=== PATIENT | female | born 1965 | race Caucasian/White ===

== ENCOUNTER 2019-01-24 21:37 | Emergency (ER) | payer SELFPAY ==
--- OUTSIDE RECORDS SUMMARY | 2019-01-24 21:41 | XMS REPORT ---
:1965 [facility] Address [facility] [address] [place] [address] Care Team Providers Name Role Phone Unavailable Unavailable Unavailable Payers Payer Name Policy Type Policy Number Effective Date Expiration Date Problems This patient has no known problems. Allergies, Adverse Reactions, Alerts Allergy Name Allergy Status Severity Reaction(s) Onset Inactive Treating Comments Type Date Date Clinician No Known DA Active U 2011-05 Intolerances 1-16 00:00: 00 Medications This patient has no known medications.
--- OUTSIDE RECORDS SUMMARY | 2019-01-24 21:41 | XMS REPORT | Clinical Summary ---
:1965 Author Organization [facility] Address [address] [place] [address] Care Team Providers Name Role Phone Abhinav Trejo MD Primary Care Provider Allergies No Known Allergies Medications Medication Sig Dispensed Refills Start Date End Date Status atenolol-chlorthalidone 0 03/11/2016 Active (TENORETIC) 50-25 mg per tablet buPROPion XL (WELLBUTRIN TAKE ONE (1) 3 03/03/2017 Active XL) 150 MG 24 hr tablet TABLET(S) BY MOUTH ONCE A DAY. atorvastatin (LIPITOR) TAKE ONE (1) 1 07/07/2017 Active 40 MG tablet TABLET(S) BY MOUTH ONCE A DAY. sertraline (ZOLOFT) 100 TAKE TWO (2) 0 07/01/2017 Active MG tablet TABLET(S) BY MOUTH ONCE A DAY DIRECTED. Active Problems Problem Noted Date Injury of left Achilles tendon 07/24/2017 Back pain 04/17/2017 Lumbar radicular pain 04/17/2017 H/O laminectomy 04/17/2017 Hip pain, chronic, left 04/17/2017 Hip pain, chronic, right 04/17/2017 Trochanteric bursitis of both hips 04/17/2017 Myofascial pain 04/17/2017 Lumbar stenosis with neurogenic claudication 04/25/2016 Social History Tobacco Use Types Packs/Day Years Used Date Current Every Day Smoker 0.5 20 Smokeless Tobacco: Never Used Alcohol Use Drinks/Week oz/Week Comments Yes RARELY Sex Assigned at Date Recorded Not on file Job Start Date Occupation Industry Not on file Not on file Not on file Travel History Travel Start Travel End No recent travel history available. Last Filed Vital Signs Not on file Plan of Treatment Health Maintenance Due Date Last Done Comments CERVICAL CANCER SCREENING 1986 BREAST CANCER SCREENING 2015 COLONOSCOPY SCREENING 2015 SHINGLES VACCINES (#1) 2015 INFLUENZA VACCINE 12/16/2018 Implants Implanted Type Area [employer] Technician Device Shelf Model / Identifier Expiration Serial / Date Lot Matrix [facility] Floseal 10ml W/ Humn F2 - [id number] Surgical N/A: N/A ZAMORA 08/15/2017 [id number] / Implanted: Qty: 1 on 04/25/2016 by Sigifredo Sapp MD at [facility] Implants ; BIOSCIENCE / Expanders; [id number] Extenders; Surgical Wires Matrix [facility] Floseal 10ml W/ Humn F2 - [id number] Surgical N/A: N/A ZAMORA 05/17/2017 [id number] / Implanted: Qty: 1 on 04/25/2016 by Sigifredo Sapp MD at [facility] Implants ; BIOSCIENCE / Expanders; [id number] Extenders; Surgical Wires Results Not on fileafter 01/23/2018 Insurance Payer Benefit Plan / Subscriber ID Effective Dates Phone Address Type Group AETNA AETNA HMO,POS,EPO, xxxxxxxxxx 2011-Present HMO MC/EC CVCP CVCP AETNA xxxxxxxxxx 2011-Present [address] [facility] [facility] [address] [place] [address] Advance Directives For more information, please contact: [phone] Type Date Recorded Patient Hospitalist Program Director Explanation Advance Directives, Living Will and Medical Power of Tests Superintendent Advance Directives, Living Will and Medical Power of Tests Superintendent
[2019-01-24] MEDS ORDERED: HYDROCODONE/APAP 10/325 TAB ONE (22:05)
[2019-01-24] MEDS ORDERED: KETOROLAC 30 MG/ML INJ ONE (22:05)
--- NOTE | 2019-01-24 23:04 | EDPHYS ---
Physician Documentation [facility] Name: Saniya Solorzano Age: 53 yrs Sex: Female : 1965 Arrival Date: 01/24/2019 Time: 21:41 Bed 20 Private MD: ED Physician Tay Baker HPI: 01/24 21:55 This 53 yrs old Female presents to ER via Unassigned with complaints of Fall pm1 Injury. 21:55 Details of fall: The patient fell from an upright position, while walking. Onset: The pm1 symptoms/episode began/occurred today. Associated injuries: The patient sustained left hip. Patient with a history of chronic back pain. The patient has not recently seen a physician. Patient was walking her dogs and walked across a wet patch. Slipped and landed on her left hip area. No head injury, headache, neck pain, LOC. 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 - Social history:: Smoking status: Patient uses tobacco products, smokes one pack cigarettes per day. - Ebola Screening: : No symptoms or risks identified at this time. ROS: 21:55 Constitutional: Negative for fever, chills, and weight loss, Eyes: Negative for injury, pm1 pain, redness, and discharge, Neck: Negative for injury, pain, and swelling, Cardiovascular: Negative for chest pain, palpitations, and edema, Respiratory: Negative for shortness of breath, cough, wheezing, and pleuritic chest pain, Abdomen/GI: Negative for abdominal pain, nausea, vomiting, diarrhea, and constipation. 21:55 Skin: Negative for injury, rash, and discoloration, Neuro: Negative for headache, weakness, numbness, tingling, and seizure. 21:55 Back: Positive for chronic low back pain, Negative for radiated pain. 21:55 MS/extremity: Positive for pain, of the left hip, Negative for decreased range of motion, deformity. Exam: 21:55 Constitutional: This is a well developed, well nourished patient who is awake, alert, pm1 and in no acute distress. Head/Face: Normocephalic, atraumatic. Neck: Trachea midline, no thyromegaly or masses palpated, and no cervical lymphadenopathy. Supple, full range of motion without nuchal rigidity, or vertebral point tenderness. No Meningismus. Chest/axilla: Normal chest wall appearance and motion. Nontender with no deformity. No lesions are appreciated. Cardiovascular: Regular rate and rhythm with a normal S1 and S2. No gallops, murmurs, or rubs. Normal PMI, no JVD. No pulse deficits. Respiratory: Lungs have equal breath sounds bilaterally, clear to auscultation and percussion. No rales, rhonchi or wheezes noted. No increased work of breathing, no retractions or nasal flaring. Abdomen/GI: Soft, non-tender, with normal bowel sounds. No distension or tympany. No guarding or rebound. No evidence of tenderness throughout. 21:55 Back: pain, of the posterior iliac crest bilaterally, vertebral tenderness, is not appreciated. 21:55 Musculoskeletal/extremity: Extremities: grossly normal except: noted in the left hip: tenderness. 21:55 Skin: Appearance: normal except for affected area, injury, abrasion(s), very small abrasion noted, of the left knee. 21:55 Neuro: Orientation: is normal, Motor: is normal, moves all fours. Vital Signs: 22:08 BP 140 / 81; Pulse 72; Resp 16 S; Temp 98.2(O); Pulse Ox 95% on R/A; Weight 77.56 kg bb (R); Height 5 ft. 6 in. (167.64 cm) (R); Pain 7/10; 22:58 BP 115 / 74; Pulse 66; Resp 18; Pulse Ox 97% on R/A; ao 22:08 Body Mass Index 27.60 (77.56 kg, 167.64 cm) bb MDM: 21:53 Patient medically screened. pm1 22:00 Data reviewed: vital signs. pm1 23:01 Data interpreted: Pulse oximetry: on room air is 97 %. Interpretation: normal. pm1 Counseling: I had a detailed discussion with the patient and/or guardian regarding: the historical points, exam findings, and any diagnostic results supporting the discharge/admit diagnosis, radiology results, the need for outpatient follow up, to return to the emergency department if symptoms worsen or persist or if there are any questions or concerns that arise at home. 01/24 21:54 Order name: Hip Left 2 View XRAY pm1 01/24 21:54 Order name: Pelvis XRAY pm1 Administered Medications: 22:08 Drug: Delta 10 mg-325 mg 1 tabs Route: PO; ea 23:23 Follow up: Response: No adverse reaction ao 23:23 Follow up: Response: RASS: Alert and Calm (0) ao 22:09 Drug: TORadol 60 mg Route: IM; Site: left gluteus; ea 23:23 Follow up: Response: No adverse reaction ao Disposition: 01/25 06:26 Co-signature as Attending Physician, Tay Baker MD I agree with the assessment and tw4 plan of care. Disposition: 01/24/19 23:03 Discharged to Home. Impression: Contusion of left hip, Fall on same level, unspecified. - Condition is Stable. - Discharge Instructions: Contusion, Fall Prevention in the Home, Hip Pain. - Prescriptions for Tylenol- Codeine #3 300-30 mg Oral Tablet - take 2 tablets by ORAL route every 6 hours As needed; 20 tablet. - Medication Reconciliation Form, Thank You Letter, Antibiotic Education, Prescription Opioid Use form. - Follow up: Emergency Department; When: As needed; Reason: Worsening of condition. Follow up: Private Physician; When: 2 - 3 days; Reason: Recheck today's complaints, Continuance of care, Re-evaluation by your physician. - Problem is new. - Symptoms have improved. Signatures: Dispatcher [employer] EDMS Tamar Garsia RN RN bb Ortiz, Alex RN Noel Velasquez, LAST PUTTER AWAY LAST PUTTER AWAY pm1 Nithya Parham RN RN ea Wadley, Terrence, MD MD tw4 Corrections: (The following items were deleted from the chart) 01/24 23:04 23:03 01/24/2019 23:03 Discharged to Home. Impression: Contusion of left hip. Condition pm1 is Stable. Forms are Medication Reconciliation Form, Thank You Letter, Antibiotic Education, Prescription Opioid Use. Follow up: Emergency Department; When: As needed; Reason: Worsening of condition. Follow up: Private Physician; When: 2 - 3 days; Reason: Recheck today's complaints, Continuance of care, Re-evaluation by your physician. Problem is new. Symptoms have improved. pm1 23:26 23:04 01/24/2019 23:03 Discharged to Home. Impression: Contusion of left hip; Fall on ao same level, unspecified. Condition is Stable. Forms are Medication Reconciliation Form, Thank You Letter, Antibiotic Education, Prescription Opioid Use. Follow up: Emergency Department; When: As needed; Reason: Worsening of condition. Follow up: Private Physician; When: 2 - 3 days; Reason: Recheck today's complaints, Continuance of care, Re-evaluation by your physician. Problem is new. Symptoms have improved. pm1
--- NOTE | 2019-01-24 23:04 | ER ---
Nurse's Notes [facility] Name: Saniya Solorzano Age: 53 yrs Sex: Female : 1965 Arrival Date: 01/24/2019 Time: 21:41 Bed 20 Private MD: Diagnosis: Contusion of left hip;Fall on same level, unspecified Presentation: 01/24 22:06 Presenting complaint: Patient states: she was walking down the handicap ramp at [facility] in [place] there was water at the bottom and she slipped injuring her left hip denies hitting her head and denies LOC. Transition of care: patient was not received from another setting of care. Onset of symptoms was January 24, 2019. Risk Assessment: Do you want to hurt yourself or someone else? Patient reports no desire to harm self or others. Initial Sepsis Screen: Does the patient meet any 2 criteria? No. Patient's initial sepsis screen is negative. Does the patient have a suspected source of infection? No. Patient's initial sepsis screen is negative. Care prior to arrival: None. 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 - Social history:: Smoking status: Patient uses tobacco products, smokes one pack cigarettes per day. - Ebola Screening: : No symptoms or risks identified at this time. Screenin:13 Abuse screen: Denies threats or abuse. Nutritional screening: No deficits noted. ea Tuberculosis screening: No symptoms or risk factors identified. Fall Risk Fall in past 12 months (25 points). Assessment: 22:12 General: Appears uncomfortable, Behavior is calm, cooperative, appropriate for age. ea Pain: Complains of pain in left leg and left hip. Neuro: Level of Consciousness is awake, alert, obeys commands, Oriented to person, place, time, situation. Cardiovascular: Patient's skin is warm and dry. Respiratory: Airway is patent Respiratory effort is even, unlabored, Respiratory pattern is regular, symmetrical. Derm: Skin is pink, warm \T\ dry. Musculoskeletal: Circulation, motion, and sensation intact. 22:58 Reassessment: Patient appears in no apparent distress at this time. Patient and/or ao family updated on plan of care and expected duration. Pain level reassessed. Patient is alert, oriented x 3, equal unlabored respirations, skin warm/dry/pink. Waiting on dispo orders. 23:23 Reassessment: Dc instructions given to patient. Patient agree with the POC and to ao follow up with PCP. Vital Signs: 22:08 BP 140 / 81; Pulse 72; Resp 16 S; Temp 98.2(O); Pulse Ox 95% on R/A; Weight 77.56 kg bb (R); Height 5 ft. 6 in. (167.64 cm) (R); Pain 7/10; 22:58 BP 115 / 74; Pulse 66; Resp 18; Pulse Ox 97% on R/A; ao 22:08 Body Mass Index 27.60 (77.56 kg, 167.64 cm) ED Course: 21:41 Patient arrived in ED. cf2 21:47 Noel Duggan NP is PHCP. pm1 21:47 Tay Baker MD is Attending Physician. pm1 22:07 Triage completed. bb 22:08 Arm band placed on Patient placed in an exam room, on a stretcher, on pulse oximetry. bb Family accompanied patient. 22:12 Patient has correct armband on for positive identification. Bed in low position. Call ea light in reach. Side rails up X2. 22:13 Shant Reyes, RN is Primary Nurse. ao 22:33 Hip Left 2 View XRAY In Process Unspecified. EDMS 22:34 Pelvis XRAY In Process Unspecified. EDMS 23:24 No provider procedures requiring assistance completed. Patient did not have IV access ao during this emergency room visit. Administered Medications: 22:08 Drug: Ojibwa 10 mg-325 mg 1 tabs Route: PO; ea 23:23 Follow up: Response: No adverse reaction ao 23:23 Follow up: Response: RASS: Alert and Calm (0) ao 22:09 Drug: TORadol 60 mg Route: IM; Site: left gluteus; ea 23:23 Follow up: Response: No adverse reaction ao Outcome: 23:03 Discharge ordered by MD. pm1 23:24 Discharged to home ambulatory. ao 23:24 Condition: stable 23:24 Discharge instructions given to patient, Instructed on discharge instructions, follow up and referral plans. Demonstrated understanding of instructions, follow-up care, medications, Prescriptions given X 1. 23:26 Patient left the ED. ao Signatures: Dispatcher [employer] EDTamar Shin RN RN bb Ortiz, Alex, RN RN ao Marinas, Patrick, COMMUNICATION TECHNICIAN COMMUNICATION TECHNICIAN pm1 Nithya Parham RN RN ea Frazier, Celesta cf2
[2019-01-25 00:49] VITALS: TEMP 98.2
[2019-01-25 00:51] VITALS: BP 115/74; O2SAT 97
--- NOTE | 2019-01-25 07:44 | RAD REPORT ---
EXAM DESCRIPTION: RAD - Hip Left 2 View - 01/24/2019 10:33 pm CLINICAL HISTORY: Slip and fall, left hip pain COMPARISON: None. FINDINGS: AP and frogleg views of the left hip were obtained. There is no fracture or dislocation. N o acute or destructive bony process seen. Minimal degenerative change along the superior acetabular rim. Minimal SI joint degenerative change seen. No soft tissue abnormality. IMPRESSION: Negative left hip examination for acute or significant findings.
--- NOTE | 2019-01-25 07:44 | RAD REPORT ---
EXAM DESCRIPTION: RAD - Pelvis - 01/24/2019 10:33 pm CLINICAL HISTORY: Slip and fall, pelvis and left hip injury, pelvic pain COMPARISON: None. TECHNIQUE: AP imaging of the pelvis was obtained. FINDINGS: No fracture of the bony pelvis. No fracture, dislocation or other acute hip joint finding. No significant SI joint findings. Patient has very advanced for age degenerative change spanning L2-S1. Disc space narrowing and large marginal spurs are present. Lumbar spine is only partially imaged on this study. No soft tissue abnormality. IMPRESSION: Negative pelvis for acute or significant findings. Advanced lumbar spine degenerative change only partially imaged.
== END 2019-01-24 23:26 | disposition home or self-care (01) ==
LOC: ER 21:37
DX: S70.02XA Contusion of left hip, initial encounter (principal); W01.0XXA Fall on same level from slipping, tripping and stumbling without subsequent striking against object, initial encounter; Y93.K1 Activity, walking an animal; Y92.89 Other specified places as the place of occurrence of the external cause; I10 Essential (primary) hypertension; E78.5 Hyperlipidemia, unspecified; F17.210 Nicotine dependence, cigarettes, uncomplicated
CPT/HCPCS: 72170; 96372; 99284

== ENCOUNTER 2019-06-19 17:46 | Emergency (ER) | payer OTHER, SELFPAY ==
--- OUTSIDE RECORDS SUMMARY | 2019-06-19 17:48 | XMS REPORT ---
:1965 [facility] Address [address] [place] [address] Care Team Providers Name Role Phone Unavailable Unavailable Unavailable Payers Payer Name Policy Type Policy Number Effective Date Expiration Date Problems This patient has no known problems. Allergies, Adverse Reactions, Alerts Allergy Name Allergy Status Severity Reaction(s) Onset Inactive Treating Comments Type Date Date Clinician No Known DA Active U 2011-05 Intolerances 1-16 00:00: 00 Medications This patient has no known medications. Results Test Description Test Time Test Comments Text Results Atomic Results Result Comments - MRI JNT W/O CONT LT 2019-06-06 09:22:00 Patient Name: JASON LONG Unit No: [id number] EXAMS: CPT CODE: [id number] MRI [facility] W/[place] [address] MRI OF THE LEFT KNEE DIAGNOSIS: 1. Irregular horizontal tear of the body and posterior. 2. 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 There is partial thickness cartilage loss in both locations with marginal osteophyte formation involving the femoral condyles. Subchondral cyst formation is seen in the patellofemoral joint. There is a small joint effusion without evidence for a loose body COMMENT: COMPARISON: No prior exams available. Scans were performed in the sagittal, axial and coronal planes utilizing T1, spin density with fat saturation and T2-weighted pulse sequences. Bony and hyaline cartilage abnormalities are present as noted. The body and posterior horn is torn. The anterior horn the medial meniscus and the lateral meniscus are within normal limits in signal and configuration. No abnormality of the anterior or posterior cruciate or medial or lateral collateral ligaments. The quadriceps and patellar tendons appear normal. at 0922 Reported and signed by: Jono Mccormick MD CC: Ruddy Escalante MD Technologist: Sunni Gates Transcribed D/ (921) [facility] NAME: JASON LONG [address] [facility] PHYS: FLORIN.Patricia - Ruddy Escalante : 1965 AGE: 54 SEX: F [place] [id number] LOC: Y.MRI PHONE #: [phone] EXAM DATE: 06/04/2019 STATUS: DEP CLI FAX #: [phone] RAD #: [id number] D/C DT PAGE 1 Signed Report Patient Name: JASON LONG Unit No: [id number] EXAMS: CPT CODE: [id number] MRI LW JNT W/[place] [address] <Continued> Orig Print D/T: S: 06/06/2019 (924) [facility] NAME: JASON LONG [address] [facility] [address] [facility] PHYS: FLORIN.Patricia - Ruddy Escalante : 1965 AGE: 54 SEX: F [place] [id number] LOC: Y.MRI PHONE #: [phone] EXAM DATE: 06/04/2019 STATUS: DEP CLI FAX #: [phone] RAD #: [id number] D/C DT PAGE 2 Signed Report
[2019-06-19] MEDS ORDERED: ONDANSETRON 4 MG/2 ML VIAL ONE (18:19)
[2019-06-19] MEDS ORDERED: MORPHINE 4 MG/ML SYR ONE (18:19)
[2019-06-19 18:36] LABS: Absolute Lymphocytes (CBC) 3.7 K/uL (0.7-4.9); Basophils % 0.8 % (0-1.3); Hematocrit 44.7 % (36.0-45.0); Lymphocytes % 31.6 % (15.3-44.8); MPV 7.7 fL (7.6-11.3); Protime INR 0.93; RBC Red Blood Cell Count 4.83 M/uL (3.86-4.86)
[2019-06-19 18:54] LABS: ALT/SGPT 24 U/L (12-78); AST/SGOT 18 U/L (15-37); Albumin 3.9 g/dL (3.4-5.0); Alkaline Phosphatase 137 U/L (45-117); BUN Blood Urea Nitrogen 15 mg/dL (7-18); Bicarbonate 29 mmol/L (21-32); Bilirubin Direct < 0.1 mg/dL (0-0.2); Bilirubin Total 0.2 mg/dL (0.2-1.0); Glucose Level 116 mg/dL (74-106); Magnesium 1.9 mg/dL (1.8-2.4); NT PRO-BNP 37 pg/mL (<125); Potassium 3.1 mmol/L (3.5-5.1); Protein, Total 7.9 g/dL (6.4-8.2); Sodium Level 138 mmol/L (136-145); Troponin (Emerg Dept Use Only) 0.04 ng/mL (0.0-0.045)
--- NOTE | 2019-06-19 19:34 | RAD REPORT ---
EXAM DESCRIPTION: RAD - Chest Single View - 06/19/2019 7:27 pm CLINICAL HISTORY: CHEST PAIN COMPARISON: No comparisons TECHNIQUE: AP portable chest image was obtained 06/19/2019 7:27 pm . FINDINGS: Lung volumes are low. Interstitial markings are prominent, accentuated by shallow inspirat ion. True or significant lung parenchymal process doubtful. Heart and vasculature are normal. No pita urable pleural effusion and no pneumothorax. No acute bony abnormality seen. No acute aortic findings suspected. IMPRESSION: No acute cardiopulmonary process.
--- NOTE | 2019-06-19 19:34 | RAD REPORT ---
EXAM DESCRIPTION: CT - Chest For Pe Angio - 06/19/2019 7:15 pm CLINICAL HISTORY: chest pain, shortness of breath COMPARISON: Chest Single View dated 06/19/2019 TECHNIQUE: Dynamically enhanced 3 mm thick images of the chest were obtained during administration o f approximately 150mL Isovue 370 IV contrast. Coronal and oblique MIP reconstruction images were gene rated and reviewed. Exam utilizes a protocol to evaluate the pulmonary arterial tree. All CT scans are performed using dose optimization technique as appropriate and may include automated exposure control or mA/KV adjustment according to patient size. FINDINGS: No pulmonary emboli are identified. The aorta as imaged shows no acute or suspicious finding. No pericardial thickening or effusion. No large mass or consolidation. There are several 6-8 mm rounded noncalcified nodules in the left pos terior gutter. There is minimal stranding as well as atelectasis. No other nodularity in the chest. N o pleural effusion or pleural thickening. No mediastinal or hilar suspicious masses. No chest wall masses or abnormal axillary lymphadenopathy. IMPRESSION: No pulmonary emboli identified. Several small noncalcified nodule 6-8 mm in size are present in the posterior gutter on the left. The se could be small areas of infiltrate rather than lung nodules given the clustered nature. No other significant or suspicious findings noted. Recommendation for multiple nodules of this size would be to undergo repeat CT chest study in 6-12 mo nths.
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
[2019-06-19] MEDS ORDERED: KETOROLAC 30 MG/ML INJ ONE (20:08)
[2019-06-19] MEDS ORDERED: DIAZEPAM 10 MG/2 ML INJ SYRINGE ONE (20:29)
[2019-06-19 21:05] VITALS: TEMP 97.9
[2019-06-19 21:09] VITALS: BP 109/75; O2SAT 95
== END 2019-06-19 20:49 | disposition home or self-care (01) ==
LOC: ER 17:46
DX: R07.9 Chest pain, unspecified (principal); I10 Essential (primary) hypertension; E78.5 Hyperlipidemia, unspecified; F17.210 Nicotine dependence, cigarettes, uncomplicated
CPT/HCPCS: 85025; 80048; 36415; 83735; 85610; 80076; 84484; 83880; 71275; 71045; 96375; 96374; 99285; Q9967; J3360; J2405

== ENCOUNTER 2024-05-24 15:34 | Inpatient (IN) | payer OTHER ==
--- OUTSIDE RECORDS SUMMARY | 2024-05-24 15:56 | XMS REPORT | Continuity of Care Document ---
Author Name Unknown Address [address] [facility] [address] [place] [address] [facility] Address [address] [facility] [place] [address] Care Team Providers Care Overlay Operator Name Role Phone MIKEYVEENALUCÍA W Primary Care Physician Unavailab Chuy Cortez Attending Clinician Unava ilJESICA Mccabe Attending Clinician Unavailable Lars Humphries MD Attending Clinician + [phone] Uriah FRANCO, Jamar Castrejon Attending Clinic shira Jen FRANCO, Jakob Palmer Attending Clinician + Butch FRANCO, Opal Attending Clinician [phone] Bahman Rai Attending Clinician [phone] Surinder Torre MD Attending Clinician [phone] Quan FRANCO, Prince Chun Attending Clinician + [phone] Juan Luis HOLDER, Courtney Flowers Attending Clinician [phone] Angel SCHMIDT, Janett Attending Clinician Unavailable Liliana Gunderosn APRN Attending Clinician + Deion FRANCO, David Pedroza Attending Clinician [phone] Sami HEREDIA, Martita Attending Clinician Unavaila shruthi Montana DO, Sera Norman Attending Clinici an CHESTER RODGERS Attending Clinician Unavailable Aniceto JOSHUA, Saskia Attending Clinician [phone] Jhoana Peguero LVN Attending Clinician Unavailable Leah FRANCO, Milan Huggins Attending Clinician [phone] Lay Elinor Attending Clinician Unavailable DEACON QUIROZ Attending Clinician Unavailabl TI Parisi Attending Clinician Unavailab cristian Fried MD, Johanny Gregory Attending Clinician [phone] Arsen WATER RESOURCE SPECIALIST, Courtney Attending Clinician [phone] Attending Clinician Unavailable FransiscoLon WATER RESOURCE SPECIALIST, Idania Attending Clinician [phone] Dannielle Arroyo MA Attending Clinician Unavailab NHUNG Hercules Attending Clinician Unavailable Venu FRANCO, Shekhar Fox Attending Clinician +[phone] Nancy Potter MD Attending Clinician [phone] Brigido FRANCO, Thierry Attending Clinician [phone] Leah FRANCO, Abdirahman Monsalve Attending Clinician [phone] Luis FRANCO, Skip Mendoza Attending Clinician [phone] Rolanda Palma MD Attending Clinician [phone] LAB47 Attending Clinician Unavailable Chago Hall LVN Attending Clinician Unavailabl kristopher Balbuena MA, Ericka Attending Clinician Unavailab AHMET Anders Attending Clinician Unavailable Kamar Attending Clinician Unavail able JAMESON CASTILLO Attending Clinician Unavailable NYDIA BREWSTER Attending Clinician Unavailab Johanny Tony Attending Clinician Unavailab NAMRATA Nunes Attending Clinician Unavailable TISH LOPEZ Attending Clinician Unavailabl LOVE Harris Attending Clinician Unavailable JULIANNA EVANS Attending Clinician Unava ilable OLIVERIO DHILLON Attending Clinician Unavailable PATRICK YANG Attending Clinician Un available TESTING, LJ MEHDI JUAREZ Attending Clinician U TERRANCE Garcia Attending Clinician Unavailable RADIOLOGY Attending Clinician Unavailable Aristides Attending Clinician Unavail able Emil Guzman Attending Clinician [phone] Emil Guzman Attending Clinician Unavailable Julianna Evans MD Attending Clinician + [phone] Lyndsay Jimenes MD Attending Clinician [phone] Damian Mittal Attending Clinician [phone] DAMIAN OROPEZA Attending Clinician Unavailable Doctor Unassigned, Atco Attending Clinician U Dangelo Cosby DO Attending Clinician [phone] Ruddy Escalante Attending Clinician UnavailChuy Bey Admitting Clinician Unava ilable JAMAR SOTO Admitting Clinician Unavailable DAVID ALBARRAN Admitting Clinician Unavailable NANCY POTTER Admitting Clinician Unavailable Kamar Admitting Clinician Unavail able Johanny العراقي Admitting Clinician Unavailab le Aristides Admitting Clinician Unavail able Emil Guzman Admitting Clinician Unavailable Payers Payer Name Policy Type Policy Number Effective Date Expirati on Date Source CIGNA II [id number] 2018 00:00:00 [facility] 2 [id number] 2020 00:00:00 [facility] (PPO) [id number] 2003 00:00:00 Problems Condition Name Condition Details Condition Category Status Onset Date Resolution Date Last Treatment Date Treating Clinician Comments Source Acute respirator y failure with hypoxia Acute respirator y failure with hypoxia Disease Active 2023-05 00:00: 00 Emil iniguez Degenerati on of interverte bral disc of lumbar region, unspecifie d whether pain present Degenerati on of interverte bral disc of lumbar region, unspecifie d whether pain present Disease Active 2023-05 00:00: [address] Lumbar radiculopa thy Lumbar radiculopa thy Disease Active 2023-05 1-15 00:00: 00 Emil iniguez Hallux valgus of left foot Hallux valgus of left foot Disease Active 2023-05 0-03 00:00: 00 Emil iniguez Osteopenia of multiple sites Osteopenia of multiple sites Disease Active 8- 00:00: 00 Antonia Seybold - Externa l Bunion of great toe of left foot Bunion of great toe of left foot Disease Active 830 00:00: 00 Antonia Seybold - Externa l Cervical radiculopa thy Cervical Radiculopa thy Problem Active 8-23 00:00: 00 [facility] Cervical radiculopa thy Cervical radiculopa thy Disease Active 8-07 00:00: 00 Emil iniguez Osteopenia Osteopenia Disease Active 4- 00:00: 00 Emil iniguez Alkaline phosphatas e elevation Alkaline phosphatas e elevation Disease Active 4- 00:00: 00 Emil iniguez Vitamin D deficiency Vitamin D deficiency Disease Active 4 00:00: 00 Emil iniguez Insomnia Insomnia Problem Active 2022-05 2-20 00:00: 00 [facility] Acquired left hallux valgus Acquired Left Hallux Valgus Problem Active 9 00:00: 00 [facility] Bone cyst of foot Bone Cyst of Foot Problem Active 9 00:00: 00 [facility] Sesamoidit is Sesamoidit is Problem Active 8- 00:00: 00 [facility] Bunion Bunion Problem Active 8-14 00:00: 00 [facility] Pain in left foot Pain in Left Foot Problem Active 8- 00:00: 00 [facility] Pain of right knee joint Pain of Right Knee Joint Problem Active 8 00:00: 00 [facility] Osteoarthr itis of right knee Osteoarthr itis of right knee Disease Active 8-25 00:00: 00 Antonia lopez Prediabete s Prediabete s Disease Active 4-07 00:00: 00 Antonia lopez Tear of medial meniscus of knee Tear of Medial Meniscus of Knee Problem Active 2020-05 2 00:00: 00 [facility] Chondromal acia Chondromal acia Problem Active 2020-05 00:00: 00 [facility] Knee joint effusion Knee Joint Effusion Problem Active 2020-05 00:00: 00 [facility] Knee pain Knee Pain Problem Active 2020-05 00:00: 00 [facility] Gastroesop hageal reflux disease Gastroesop hageal reflux disease Disease Active 11-27 00:00: 00 Antonia lopez Anxiety - Controlled Anxiety - Controlled Disease Active 11-27 00:00: 00 Antonia lopez Hyperlipid emia Hyperlipid emia Disease Active 11-27 00:00: 00 Antonia lopez DM type 2 with diabetic mixed hyperlipid emia (multi HCC) DM type 2 with diabetic mixed hyperlipid emia (multi HCC) Disease Active 11-27 00:00: 00 Antonia lopez Essential hypertensi on Essential hypertensi on Disease Active 5-11 00:00: 00 Antonia lopez Tear of meniscus of knee Tear of Meniscus of Knee Problem Active 06-01 00:00: 00 [facility] Pain in left knee Pain in Left Knee Problem Active 06-01 00:00: 00 [facility] Lumbar radiculopa thy Lumbar Radiculopa thy Problem Active 2017-05 00:00: 00 [facility] Pain in right lower limb Pain in Right Lower Limb Problem Active 2017-05 00:00: 00 [facility] Tarsal tunnel syndrome Tarsal Tunnel Syndrome Problem Active 2017-05 00:00: 00 [facility] Plantar fasciitis Plantar Fasciitis Problem Active 2017-05 00:00: 00 [facility] Injury of left Achilles tendon Injury of left Achilles tendon Disease Active 07-24 [facility]: [address] [facility] of left Achilles tendon Injury of left Achilles tendon Disease Active 07-24 00:00: [address] Lumbar radicular pain Lumbar radicular pain Disease Active 2016-05 00:00: [address] [facility] Back pain Back pain Disease Active 2016-05 00:00: [address] Lumbar radicular pain Lumbar radicular pain Disease Active 2016-05 00:00: [address] H/O laminectom y H/O laminectom y Disease Active 2016-05 00:00: [address] Hip pain, chronic, left Hip pain, chronic, left Disease Active 2016-05 00:00: [address] Trochanter ic bursitis of both hips Trochanter ic bursitis of both hips Disease Active 2016-05 00:00: [address] Myofascial pain Myofascial pain Disease Active 2016-05 00:00: [address] Lumbar stenosis with neurogenic claudicati on Lumbar stenosis with neurogenic claudicati on Disease Active 2015-05 00:00: [address] Procedure aiding diagnosis Procedure Aiding Diagnosis Problem Active 12-25 00:00: 00 [facility] No known active problems No known active problems Disease [facility] Tobacco use Tobacco use Disease Active Antonia Seybold - Externa l Allergies, Adverse Reactions, Alerts Allergy Name Allergy Type Status Severity Reaction(s) Onset Date Inactive Date Treating Clinician Comments Source Tramadol Propensi ty to adverse reaction s to drug Active Other (See Comments), GI Intolerance 08-25 00:00: 00 N/V,heada charla Emil [facility]leyi st Tramadol Propensi ty to adverse reaction s Active Nausea Only 2022-05 00:00: 00 Antonia Olearyold - Externa l No Known Allergie s DA Active U 918 00:00: 00 [facility] No Known Drug Allergie s DA Active U 2020-05 2 00:00: 00 [facility] No Known Drug Allergie s DA Active U 2020-05 1 00:00: 00 [facility] No Known Allergie s DA Active U 3 00:00: 00 [facility] No Known Allergie s DA Active U 08-01 00:00: 00 [facility] No Known Intolera nces DA Active U 2011-05 00:00: 00 [facility] No Known Intolera nces DA Active U 2011-05 00:00: 00 [facility] NO KNOWN ALLERGIE S Drug Class Active [facility] Family History Family Member Diagnosis Comments Start Date Stop Date Sourc e Natural father Cancer [place] [employer] Natural father Heart attack [facility] [place] [employer] Natural father Hypertension [facility] [employer] Social History Social Habit Start Date Stop Date Quantity Comments Source Gender identity [facility] History of tobacco use Current smoker Emil Beal ASSERTION Not Emil Beal Sexual orientation [employer] History of Occupation [employer] Exposure to SARS-CoV-2 (event) Not sure [facility] History SDOH Alcohol Frequency Antonia Ramires bold - External History SDOH Alcohol Std Drinks Antonia Díaz ybold - External History SDOH Alcohol Binge Antonia Johnson - External History of Social function 2024-05-22 00:00:00 2024-05-22 00:00:00 [employer] Alcoholic beverage intake 2024-05-19 00:00:00 2024-05-19 00:00:00 Current drinker of alcohol (finding) Emil Beal Cigarettes smoked current (pack per day) - Reported 2024-04-21 00:00:00 2024-04-21 00:00:00 [employer] Cigarette pack-years 2024-04-21 00:00:00 2024-04-21 00:00:00 [employer] Tobacco use and exposure 2024-04-21 00:00:00 2024-04-21 00:00:00 Smokeless tobacco non-user Emil Beal Tobacco Comment 2024-04-21 00:00:00 2024-04-21 00:00:00 Started smoking in 1986- Smoked 1/2 PPD X 35 yrs. Quit 12/2023. Emil Beal Alcohol Comment 2023-08-26 00:00:00 2023-08-26 00:00:00 Occasionally Emil Beal Alcohol intake 2017-07-24 00:00:00 2017-07-24 00:00:00 Current drinker of alcohol (finding) [facility] Sex assigned at 1965 00:00:00 1965 00:00:00 Emil Beal Smoking Status Start Date Stop Date Source Light Tobacco Smoker [facility] Ex-smoker 2024-04-21 00:00:00 2024-04-21 00:00:00 [facility] [employer] [employer] Smokes tobacco daily 2024-01-15 00:00:00 Antonia Merritt Current some day smoker 2016-11-13 00:00:00 [facility] Medications Ordered Medication Name Filled Medication Name Start Date Stop Date Current Medication? Ordering Clinician Indication Dosage Frequency Signature (SIG) Comments Components Source pregabalin (LYRICA) 200 MG capsule 05-24 14:25: 38 05-24 00:00 :00 No 200mg Q.[id number] 3D Take 1 capsule (200 mg total) by mouth 3 (three) times a day. Emil iniguez cholecalcif tahira, vitamin D3, (Vitamin D3) 125 mcg (5,000 unit) tablet 05-24 14:25: 38 05-24 00:00 :00 No 5000U QD Take 1 tablet (5,000 Units total) by mouth every morning. Emil iniguez progesteron e (PROMETRIUM ) 200 MG capsule 05-24 14:: 38 05-24 00:00 :00 No 200mg QD Take 1 capsule (200 mg total) by mouth nightly. Emil iniguez acetaminoph en-codeine (TYLENOL WITH CODEINE #3) 300-30 mg per tablet 05-24 14:25: 38 05-24 00:00 :00 No acute pain 1{tbl} Q.[id number] 3D Take 1 tablet by mouth 3 (three) times a day .acute pain. [facility] DULoxetine (CYMBALTA) 60 MG capsule 05-24 14:25: 34 Yes 60mg QD Take 1 capsule (60 mg total) by mouth every morning. FOR Anxiety/Pa in [facility] omega 3-dha-epa-f iftikhar oil (Fish OiL) 1,000 mg (120 mg-180 mg) capsule 05-24 14:25: 34 Yes 1{tbl} QD Take 1 tablet by mouth nightly. [facility] NON FORMULARY 05-24 14:25: 34 Yes Q90D every 3 (three) months. Hormone pellets given in the clinic [facility] omeprazole (PriLOSEC) 40 MG capsule 05-24 14:25: 34 Yes 40mg QD Take 1 capsule (40 mg total) by mouth every morning. [facility] ascorbic acid, vitamin C, (VITAMIN C) 1000 MG tablet 05-24 14:25: 34 Yes 1000mg QD Take 1 tablet (1,000 mg total) by mouth daily. [facility] ferrous sulfate (iron) 325 (65 FE) MG tablet 05-24 14:25: 34 Yes 325mg QD Take 1 tablet (325 mg total) by mouth nightly. [facility] cholecalcif tahira, vitamin D3, (VITAMIN D3) 1,000 unit tablet 05-24 14:25: 34 Yes 1000U QD Take 1 tablet (1,000 Units total) by mouth every evening. [facility] Tymlos 80 mcg (3,120 mcg/1.56 mL) pen injector 2023-05 00:00: 00 06-06 23:59 :00 Yes Osteopenia, unspecified location 80ug QD Inject 0.04 mL (80 mcg total) under the skin daily for 60 days. [facility] aspirin (ECOTRIN) 81 MG enteric coated tablet 2023-05 00:00: 00 04-03 23:59 :00 No 81mg QD Take 1 tablet (81 mg total) by mouth daily for 30 days. For blood clot prevention Emil iniguez HYDROcodone -acetaminop hen (NORCO) 7.5-325 mg per tablet 2023-05 00:00: 00 03-11 23:59 :00 No acute pain 1{tbl} Q6H Take 1 tablet by mouth every 6 (six) hours as needed for moderate pain for up to 7 days .acute pain. Max Daily Amount: 4 tablets Emil iniguez cephalexin (KEFLEX) 500 MG capsule 2023-05 00:00: 00 03-07 23:59 :00 No 500mg Q.5D Take 1 capsule (500 mg total) by mouth 2 (two) times a day for 3 days. Emil iniguez methylPREDN ISolone (Medrol, Narayan,) 4 mg tablet 02-02 00:00: 00 02-08 23:59 :00 No follow package directions Emil iniguez Abaloparati de (TYMLOS SC) 01-14 15:04: 24 Yes 1{dose} QD Inject 1 Dose into the skin daily. Antonia lopez Ascorbic Acid (Vitamin C) 500 MG oral Tablet 01-14 15:03: 25 Yes 500mg QD Take 1 tablet (500 mg total) by mouth daily. Antonia lopez Cyanocobala min (B-12) 1000 MCG oral Tablet 01-14 15:03: 16 Yes [id number] 1{tbl} QD Take 1 tablet by mouth daily. Indication s: Inadequate Vitamin B12 Antonia lopez OZEMPIC (1 mg/dose) 4 mg/3 mL SQ Solution Pen-Injecto r 01-14 00:00: 00 Yes [id number] 3 1mg Q1W Inject 1 mg into the skin once a week. Antonia lopez abaloparati de (Tymlos) 80 mcg (3,120 mcg/1.56 mL) pen injector 01-07 00:00: 00 03-01 00:00 :00 No Osteopenia, unspecified location 80ug QD Inject 80 mcg under the skin daily. [facility] methocarbam oL (ROBAXIN) 500 MG tablet 12-29 00:00: 00 01-28 23:59 :00 No 500mg Q.25D Take 1 tablet (500 mg total) by mouth 4 (four) times a day for 30 days. [facility] Triamcinolo ne Acetonide 0.1 % apply externally Cream 12-28 12:16: 48 12-28 00:00 :00 No triamcinol one acetonide 0.1 % topical cream APPLY A SMALL AMOUNT TO AFFECTED AREA(S) OF FOOT TWICE DAILY FOR TWO WEEKS. Antonia lopez Atenolol-Ch lorthalidon e 50-25 MG oral Tablet 12-28 00:00: 00 Yes [id number] 1{tbl} QD Take 1 tablet by mouth daily. Antonia lopez Atorvastati n Calcium 40 MG oral Tablet 12-28 00:00: 00 Yes [id number] 3 40mg QD Take 1 tablet (40 mg total) by mouth daily. Antonia lopez Duloxetine HCl [address] Particles 12-28 00:00: 00 Yes [id number] 60mg QD Take 1 capsule (60 mg total) by mouth daily. Antonia lopez OZEMPIC (0.25 or 0.5 mg/dose) 2 mg/3 mL SQ Solution Pen-Injecto r 12-28 00:00: 00 01-14 00:00 :00 No .5mg Q1W Inject 0.5 mg into the skin once a week. Antonia lopez cholecalcif tahira, vitamin D3, 1,000 unit tablet 12-27 12:37: 00 12-26 00:00 :00 No 1000U QD Take 1 tablet (1,000 Units total) by mouth nightly. [facility] acetaminoph en-codeine (TYLENOL WITH CODEINE #3) 300-30 mg per tablet 12-27 12:37: 00 12-26 00:00 :00 No acute pain 1{tbl} Q4H Take 1 tablet by mouth every 4 (four) hours as needed for moderate pain .acute pain. [facility] HYDROcodone -acetaminop hen (NORCO) 10-325 mg per tablet 12-26 00:00: 00 03-01 00:00 :00 No acute pain 1{tbl} Q8H Take 1 tablet by mouth every 8 (eight) hours as needed for severe pain .acute pain. Max Daily Amount: 3 tablets [facility] methylPREDN ISolone (MEDROL DOSEPAK) 4 mg tablet 12-26 00:00: 00 01-01 23:59 :00 No follow package directions [place] [facility] vit B complex-vit ochoa C-folic acid (NEPHRO-VIT E OTC) 0.8 mg tablet 12-22 23:00: 31 12-22 00:00 :00 No 1{tbl} QD Take 1 tablet by mouth daily. [facility] Lactobac no.41/Bifid obact no.7 (PROBIOTIC- 10 ORAL) 12-22 22:58: 33 12-22 00:00 :00 No 1{tbl} QD Take 1 tablet by mouth daily. [facility] progesteron e (PROMETRIUM ) 100 MG capsule 12-22 22:52: 40 12-22 00:00 :00 No 200mg QD Take 2 capsules (200 mg total) by mouth every evening. [facility] ascorbic acid, vitamin C, (VITAMIN C) 500 MG tablet 12-22 22:51: 33 12-22 00:00 :00 No 500mg QD Take 1 tablet (500 mg total) by mouth daily. [facility] cyclobenzap rine (FLEXERIL) 5 mg tablet 11-30 00:00: 00 12-29 00:00 :00 No 5mg Q.[id number] 3D Take 1 tablet (5 mg total) by mouth 3 (three) times a day as needed. [facility] potassium chloride (K-DUR) 20 MEQ CR tablet 11-24 00:00: 00 12-22 00:00 :00 No Take 2 tabs now and 2 tabs at night [facility] methylPREDN ISolone (Medrol, Narayan,) 4 mg tablet 11-04 00:00: 00 11-10 23:59 :00 No follow package directions [facility] abaloparati de (Tymlos) 80 mcg (3,120 mcg/1.56 mL) pen injector 10-22 00:00: 00 03-01 00:00 :00 No Osteopenia, unspecified location 80ug QD Inject 80 mcg under the skin daily. [facility] Gabapentin 300 MG oral Capsule 09-06 00:00: 00 12-28 00:00 :00 No 300mg Q.[id number] 3D Take 1 capsule (300 mg total) by mouth 3 times daily as needed. Antonia lopez Triamcinolo ne Acetonide 0.1 % apply externally Cream 05-20 10:13: 44 Yes triamcinol one acetonide 0.1 % topical cream APPLY A SMALL AMOUNT TO AFFECTED AREA(S) OF FOOT TWICE DAILY FOR TWO WEEKS. Antonia lopez Alprazolam 0.5 MG oral Tablet 05-20 10:13: 35 05-20 00:00 :00 No .5mg Q.5D Take 1 tablet (0.5 mg total) by mouth 2 times daily as needed. Antonia lopez Nirmatrelvi r & Ritonavir STANDARD (30) (300/100) Therapy Pack 2022-05 00:00: 00 05-12 05:59 :00 No [id number] Take two 150 mg nirmatrelv ir (pink) tablets with one 100 mg ritonavir (white) tablet by mouth two times daily for 5 days. Antonia lopez Alprazolam 0.5 MG oral Tablet 2022-05 12:54: 57 Yes .5mg Q.5D Take 1 tablet (0.5 mg total) by mouth 2 times daily as needed. Antonia lopez Triamcinolo ne Acetonide 0.1 % apply externally Cream 2022-05 11:19: 22 03-26 00:00 :00 No APPLY A SMALL AMOUNT TO AFFECTED AREA(S) OF FOOT TWICE DAILY FOR TWO WEEKS. Antonia lopez Alprazolam 0.5 MG oral Tablet 2022-05 10:30: 24 Yes .5mg Q.5D Take 1 tablet (0.5 mg total) by mouth 2 times daily as needed. Antonia lopez methylPREDN ISolone (Medrol) 4 MG oral Tablet Therapy Pack 2022-05 00:00: 00 05-20 00:00 :00 No [id number] 1{narayan} Take 1 narayan by mouth See Admin Instructio ns. Antonia lopez Gabapentin 300 MG oral Capsule 2022-05 00:00: 00 05-20 00:00 :00 No [id number] 300mg Q.[id number] 3D Take 1 capsule (300 mg total) by mouth 3 times daily as needed. Antonia lopez Atorvastati n Calcium 40 MG oral Tablet 2022-05 00:00: 00 12-28 00:00 :00 No [id number] 3 40mg QD TAKE ONE (1) TABLET(S) BY MOUTH ONCE A DAY. Antonia lopez OZEMPIC (0.25 or 0.5 mg/dose) 2 mg/3 mL SQ Solution Pen-Injecto r 2022-05 14:44: 11 02-20 00:00 :00 No INJECT 0.5 MG SUBCUTANEO USLY WEEKLY. Antonia lopez Albuterol HFA 108 (90 Base) MCG/ACT IN AERS 2022-05 14:36: 34 02-20 00:00 :00 No 2{puff} Q.25D Inhale 2 puffs into the lungs every 6 hours as needed. Antonia lopez Alprazolam 0.5 MG oral Tablet 2022-05 14:28: 58 Yes .5mg Q.5D Take 1 tablet (0.5 mg total) by mouth 2 times daily as needed. Antonia lopez Triamcinolo ne Acetonide 0.1 % apply externally Cream 2022-05 0 14:28: 58 Yes APPLY A SMALL AMOUNT TO AFFECTED AREA(S) OF FOOT TWICE DAILY FOR TWO WEEKS. Antonia lopez OZEMPIC (0.25 or 0.5 mg/dose) 2 mg/3 mL SQ Solution Pen-Injecto r 2022-05 0 00:00: 00 12-28 00:00 :00 No [id number] 3 .5mg Q1W Inject 0.5 mg into the skin once a week. Antonia lopez Gabapentin 300 MG oral Capsule 02-09 00:00: 00 Yes [id number] 300mg Q.[id number] 3D TAKE ONE (1) CAPSULE(S) BY MOUTH THREE TIMES A DAY NEEDED. Antonia lopez Fluconazole 150 MG oral Tablet 01-27 00:00: 00 02-20 00:00 :00 No 150mg TAKE ONE (1) TABLET(S) BY MOUTH ONCE A DAY. Antonia lopez Vitamin D, Ergocalcife rol, 1.25 MG (83769 UT) oral Capsule 01-20 00:00: 00 05-20 00:00 :00 No [id number] Take 1 capsule (50,000 units total) by mouth once a week. Antonia lopez OZEMPIC (0.25 or 0.5 mg/dose) 2 mg/3 mL SQ Solution Pen-Injecto r 01-13 00:00: 00 02-20 00:00 :00 No [id number] 3 .25mg Inject 0.25 mg into the skin once a week. Antonia lopez [place]-3 Fatty Acids (Fish Oil) 1000 MG oral Capsule 01-07 08:57: 18 01-07 00:00 :00 No Antonia lopez B Complex Vitamins (VITAMIN B COMPLEX 100 IJ) 01-07 08:57: 18 01-07 00:00 :00 No Antonia lopez Ascorbic Acid (Vitamin C) 100 MG oral Chewable Tablet 01-07 08:57: 18 01-07 00:00 :00 No Antonia lopez Gabapentin 300 MG oral Capsule 01-07 08:55: 43 01-07 00:00 :00 No [id number] 300mg Q.[id number] 3D Take 1 capsule (300 mg total) by mouth 3 times daily as needed. Antonia lopez Alprazolam 0.5 MG oral Tablet 01-07 08:24: 28 Yes .5mg Q.5D Take 1 tablet (0.5 mg total) by mouth 2 times daily as needed. Antonia lopez Trazodone HCl 50 MG oral Tablet 01-07 08:24: 14 01-07 00:00 :00 No trazodone 50 mg tablet TAKE ONE (1) TABLET(S) BY MOUTH EVERY NIGHT NEEDED FOR SLEEP. Antonia lopez Tramadol HCl (ULTRAM) 50 MG oral Tablet 01-07 08:24: 10 01-07 00:00 :00 No 50mg Q.25D Take 1 tablet (50 mg total) by mouth every 6 hours as needed. Antonia lopez HYDROcodone -Acetaminop hen 7.5-325 MG oral Tablet 01-07 08:23: 19 01-07 00:00 :00 No 1{tbl} Take 1 tablet by mouth every 4 to 6 hours as needed. Antonia lopez HYDROcodone -Acetaminop hen 10-325 MG oral Tablet 01-07 08:23: 16 01-07 00:00 :00 No 1{tbl} Q.25D Take 1 tablet by mouth every 6 hours as needed. Antonia lopez Gabapentin 300 MG oral Capsule 01-07 00:00: 00 Yes [id number] 300mg Q.[id number] 3D Take 1 capsule (300 mg total) by mouth 3 times daily as needed. Antonia lopez Fluconazole 150 MG oral Tablet 01-06 00:00: 00 01-07 00:00 :00 No Antonia lopez Progesteron e 200 MG oral Capsule 01-03 00:00: 00 Yes [id number] 200mg QD Take 1 capsule (200 mg total) by mouth daily. Antonia lopez Insulin Pen Needle 31G X 6 MM does not apply Misc 12-23 00:00: 00 Yes [id number] 3 USE DIRECTED ONCE DAILY. Antonia lopez Chlorhexidi ne Gluconate 0.12 % mouth/throa t Solution 12-22 00:00: 00 03-26 00:00 :00 No SWAB IMPLANT WITH SOLUTION TWICE DAILY AFTER BRUSHING. Antonia lopez Ondansetron (ZOFRAN) 4 MG oral TABLET DISPERSIBLE 12-22 00:00: 00 03-26 00:00 :00 No DISSOLVE ONE (1) TABLET UNDER TONGUE EVERY 6 HOURS NEEDED FOR NAUSEA. Antonia lopez Alprazolam 0.5 MG oral Tablet 12-09 10:48: 28 Yes .5mg Q.5D Take 1 tablet (0.5 mg total) by mouth 2 times daily as needed Antonia lopez [place]-3 Fatty Acids (Fish Oil) 1000 MG oral Capsule 12-09 10:48: 28 Yes Antonia lopez B Complex Vitamins (VITAMIN B COMPLEX 100 IJ) 12-09 10:48: 28 Yes Antonia lopez Ascorbic Acid (Vitamin C) 100 MG oral Chewable Tablet 12-09 10:48: 28 Yes Antonia lopez Trazodone HCl 50 MG oral Tablet 12-09 10:48: 28 Yes trazodone 50 mg tablet TAKE ONE (1) TABLET(S) BY MOUTH EVERY NIGHT NEEDED FOR SLEEP. Antonia lopez Atenolol-Ch lorthalidon e 50-25 MG oral Tablet 12-09 00:00: 00 12-28 00:00 :00 No [id number] 1{tbl} QD Take 1 tablet by mouth daily Antonia lopez Duloxetine HCl [address] Particles 12-09 00:00: 00 12-28 00:00 :00 No [id number] 60mg QD Take 1 capsule (60 mg total) by mouth daily Antonia lopez Atorvastati n Calcium 40 MG oral Tablet 12-09 00:00: 00 02-20 00:00 :00 No [id number] 40mg Take 1 tablet (40 mg total) by mouth daily Antonia lopez Atenolol-Ch lorthalidon e 50-25 MG oral Tablet 12-08 00:00: 00 12-09 00:00 :00 No [id number] 1{tbl} Take 1 tablet by mouth daily Antonia lopez Duloxetine HCl [address] Particles 12-03 00:00: 00 12-09 00:00 :00 No 60mg Take 1 capsule (60 mg total) by mouth daily Antonia lopez Triamcinolo ne Acetonide 0.1 % apply externally Cream 11-27 00:00: 00 01-07 00:00 :00 No APPLY A SMALL AMOUNT TO AFFECTED AREA(S) OF FOOT TWICE DAILY FOR TWO WEEKS. Antonia lopez OZEMPIC (0.25 or 0.5 mg/dose) 2 mg/3 mL SQ Solution Pen-Injecto r 11-12 00:00: 00 01-07 00:00 :00 No INJECT 0.5 MG SUBCUTANEO USLY WEEKLY. Atnonia lopez semaglutide (OZEMPIC) 1 mg/dose (2 mg/1.5 mL) subcutaneou s pen 11-06 00:00: 00 05-24 00:00 :00 No 1mg Q1W Inject 1 mg under the skin every 7 days. EVERY THURSDAY- FOR DM [facility] Methocarbam ol 500 MG oral Tablet 06-27 14:3806-27 00:00 :00 No methocarba mol 500 mg tablet TAKE ONE (1) TABLET BY MOUTH EVERY SIX HOURS NEEDED. Antonia lopez Alprazolam 0.5 MG oral Tablet 06-16 08:53: 09 Yes .5mg Q.5D Take 0.5 mg by mouth 2 times daily as needed Antonia lopez [place]-3 Fatty Acids (Fish Oil) 1000 MG oral Capsule 06-16 08:53: 09 Yes Antonia lopez B Complex Vitamins (VITAMIN B COMPLEX 100 IJ) 06-16 08:53: 09 Yes Antonia lopez Ascorbic Acid (Vitamin C) 100 MG oral Chewable Tablet 06-16 08:53: 09 Yes Antonia lopez Methocarbam ol 500 MG oral Tablet 06-16 08:53: 09 Yes methocarba mol 500 mg tablet TAKE ONE (1) TABLET BY MOUTH EVERY SIX HOURS NEEDED. Antonia lopez Trazodone HCl 50 MG oral Tablet 06-16 08:53: 09 Yes trazodone 50 mg tablet TAKE ONE (1) TABLET(S) BY MOUTH EVERY NIGHT NEEDED FOR SLEEP. Antonia lopez Ketorolac Tromethamin e (TORADOL) 60 mg/2 mL 06-03 22:45: 00 06-03 22:55 :00 No [id number] 60mg Antonia lopez Alprazolam 0.5 MG oral Tablet 06-03 16:11: 51 Yes .5mg Q.5D Take 0.5 mg by mouth 2 times daily as needed Antonia lopez [place]-3 Fatty Acids (Fish Oil) 1000 MG oral Capsule 06-03 16:11: 51 Yes Antonia lopez B Complex Vitamins (VITAMIN B COMPLEX 100 IJ) 06-03 16:11: 51 Yes Antonia lopez Ascorbic Acid (Vitamin C) 100 MG oral Chewable Tablet 06-03 16:11: 51 Yes Antonia lopez Methocarbam ol 500 MG oral Tablet 06-03 16:11: 51 Yes methocarba mol 500 mg tablet TAKE ONE (1) TABLET BY MOUTH EVERY SIX HOURS NEEDED. Antonia lopez Trazodone HCl 50 MG oral Tablet 06-03 16:11: 51 Yes trazodone 50 mg tablet TAKE ONE (1) TABLET(S) BY MOUTH EVERY NIGHT NEEDED FOR SLEEP. Antonia lopez methylPREDN ISolone 4 MG oral Tablet Therapy Pack 06-03 00:00: 00 06-27 00:00 :00 No [id number] 1{narayan} Take 1 narayan by mouth See Admin Instructio ns Use as directed Antonia lopez Duloxetine HCl [address] Particles 2021-05 00:00: 00 Yes 60mg Take 1 capsule (60 mg total) by mouth daily Antonia lopez Alprazolam 0.5 MG oral Tablet 2021-05 11:33: 01 Yes .5mg Q.5D Take 0.5 mg by mouth 2 times daily as needed Antonia lopez [place]-3 Fatty Acids (Fish Oil) 1000 MG oral Capsule 2021-05 11:33: 01 Yes Antonia lopez B Complex Vitamins (VITAMIN B COMPLEX 100 IJ) 2021-05 11:33: 01 Yes Antonia lopez Ascorbic Acid (Vitamin C) 100 MG oral Chewable Tablet 2021-05 11:33: 01 Yes Antonia lopez Methocarbam ol 500 MG oral Tablet 2021-05 11:33: 01 Yes methocarba mol 500 mg tablet TAKE ONE (1) TABLET BY MOUTH EVERY SIX HOURS NEEDED. Antonia lopez Trazodone HCl 50 MG oral Tablet 2021-05 11:33: 01 Yes trazodone 50 mg tablet TAKE ONE (1) TABLET(S) BY MOUTH EVERY NIGHT NEEDED FOR SLEEP. Antonia lopez Albuterol HFA 108 (90 Base) MCG/ACT IN AERS 2021-05 00:00: 00 01-07 00:00 :00 No [id number] 2{puff} Q.25D Inhale 2 puffs into the lungs every 6 hours as needed for wheezing Antonia lopez Fluconazole 150 MG oral Tablet 2021-05 00:00: 00 04-29 05:59 :00 No [id number] 150mg Take 1 tablet (150 mg total) by mouth once for 1 dose Antonia lopez Allopurinol 100 MG oral Tablet 2021-05 00:00: 00 01-07 00:00 :00 No 200mg Take 2 tablets (200 mg total) by mouth daily Antonia lopez Alprazolam 0.5 MG oral Tablet 2021-05 10:27: 22 Yes .5mg Q.5D Take 0.5 mg by mouth 2 times daily as needed Antonia lopez [place]-3 Fatty Acids (Fish Oil) 1000 MG oral Capsule 2021-05 10:27: 22 Yes Antonia lopez B Complex Vitamins (VITAMIN B COMPLEX 100 IJ) 2021-05 10:27: 22 Yes Antonia lopez Ascorbic Acid (Vitamin C) 100 MG oral Chewable Tablet 2021-05 10:27: 22 Yes Antonia lopez Methocarbam ol 500 MG oral Tablet 2021-05 10:27: 22 Yes methocarba mol 500 mg tablet TAKE ONE (1) TABLET BY MOUTH EVERY SIX HOURS NEEDED. Antonia lopez Duloxetine HCl [address] Particles 2021-05 00:00: 00 Yes 60mg Take 60 mg by mouth daily Antonia lopez Gabapentin 300 MG oral Capsule 2021-05 00:00: 00 06-27 00:00 :00 No 300mg [id number] 3D Take 300 mg by mouth 3 times daily as needed Antonia lopez Tramadol HCl 50 MG oral Tablet 30 00:00: 00 Yes 1{tbl} Q.25D Take 1 tablet by mouth every 6 hours as needed Antonia lopez HYDROcodone -Acetaminop hen 10-325 MG oral Tablet 8-30 00:00: 00 06-03 00:00 :00 No 1{tbl} Q.25D Take 1 tablet by mouth every 6 hours as needed Antonia lopez Duloxetine HCl [address] Particles 8-15 00:00: 00 03-17 00:00 :00 No 30mg Take 1 capsule (30 mg total) by mouth daily Antonia lopez Atenolol-Ch lorthalidon e 50-25 MG oral Tablet 12-09 00:00: 00 Yes [id number] 1{tbl} Take 1 tablet by mouth daily Antonia lopez Atorvastati n Calcium 40 MG oral Tablet 12-09 00:00: 00 12-09 00:00 :00 No [id number] 40mg Take 1 tablet (40 mg total) by mouth daily Antonia lopez DULoxetine HCl 60 MG oral Capsule Delayed Release Sprinkle 12-09 00:00: 00 03-17 00:00 :00 No [id number] 60mg Take 60 mg by mouth daily Antonia lopez Alprazolam 0.5 MG oral Tablet 510 14:33: 13 Yes .5mg Q.5D Take 0.5 mg by mouth 2 times daily as needed Antonia Johnson Nitrofurant oin Monohyd Macro 100 MG oral Capsule 4-08 00:00: 00 09-24 00:00 :00 No [id number] 100mg Take 1 capsule (100 mg total) by mouth in the morning and 1 capsule (100 mg total) in the evening. Antonia Johnson Alprazolam 0.5 MG oral Tablet 07 09:45: 26 Yes .5mg Q.5D Take 0.5 mg by mouth 2 times daily as needed Antonia Johnson Meloxicam 15 MG oral Tablet 2-21 00:00: 00 Yes [id number] 15mg Take 1 tablet (15 mg total) by mouth daily Antonia Johnson Trazodone HCl 50 MG oral Tablet 2020-05 00:00: 00 03-17 00:00 :00 No [id number] 50mg QD Take 1 tablet (50 mg total) by mouth nightly as needed for sleep Antonia Johnson - Externa l Amoxicillin -Pot Clavulanate 500-125 MG oral Tablet 2020-05 00:00: 00 09-24 00:00 :00 No [id number] 1{tbl} Take 1 tablet by mouth 3 times daily Antonia Johnson predniSONE 20 MG oral tablet 2020-05 00:00: 00 03-26 05:59 :00 No [id number] 40mg Take 2 tablets (40 mg total) by mouth daily for 5 days Antonia Johnson celecoxib (CELEBREX) 200 mg capsule 2020-05 00:00: 00 04-05 05:59 :00 No [id number] 200mg Take 1 capsule by mouth daily for 30 days. [facility] naproxen sodium (ANAPROX DS) 550 mg tablet 12-05 00:00: 00 Yes [id number] 550mg Take 1 tablet by mouth 2 (two) times daily with meals. [facility] methylPREDN ISolone (MEDROL, NARAYAN,) 4 mg tablets 12-05 00:00: 00 Yes [id number] Take by mouth SEE-INSTRU CTIONS. follow package directions [facility] Alprazolam 0.5 MG oral Tablet 11-27 09:06: 34 Yes .5mg Q.5D Take 0.5 mg by mouth 2 times daily as needed Antonia Johnson Meloxicam 15 MG oral Tablet 11-27 00:00: 00 Yes [id number] 15mg Take 1 tablet (15 mg total) by mouth daily Antonia Johnson Atenolol- lorthalidon e 50-25 MG oral Tablet 11-27 00:00: 00 Yes [id number] 1{tbl} Take 1 tablet by mouth daily Antonia Johnson Atorvastati n Calcium 40 MG oral Tablet 11-27 00:00: 00 Yes [id number] 40mg Take 1 tablet (40 mg total) by mouth daily Antonia Johnson Omeprazole 40 MG oral Delayed Release Capsule 11-27 00:00: 00 Yes [id number] 40mg Take 1 capsule (40 mg total) by mouth daily Antonia Johnson Sertraline HCl 100 MG oral Tablet 11-27 00:00: 00 Yes [id number] 100mg Take 1 tablet (100 mg total) by mouth daily Antonia Johnson HYDROcodone -Acetaminop hen 7.5-325 MG oral Tablet 07-04 00:00: 00 Yes TAKE ONE (1) TABLET(S) BY MOUTH EVERY FOUR TO SIX HOURS NEEDED FOR PAIN. Antonia Johnson buPROPion 75 mg tablet 01-06 18:00: 39 Yes 75mg Take 75 mg by mouth 3 (three) times daily. [facility] atorvastati n (LIPITOR) 40 MG tablet 07-07 00:00: 00 Yes 40mg QD Take 1 tablet (40 mg total) by mouth every morning. [place] [facility] sertraline (ZOLOFT) 100 MG tablet 07-01 00:00: 00 08-18 00:00 :00 No TAKE TWO (2) TABLET(S) BY MOUTH ONCE A DAY DIRECTED. [facility] atenolol 50 mg tablet 06-12 08:19: 28 Yes 50mg Take 50 mg by mouth daily. [facility] SERTraline 50 mg tablet 06-12 08:19: 28 Yes 50mg Take 50 mg by mouth daily. [facility] ALPRAZolam 0.5 mg tablet 06-12 08:19: 28 Yes .5mg Take 0.5 mg by mouth 2 (two) times daily as needed. [facility] buPROPion XL (WELLBUTRIN XL) 150 MG 24 hr tablet 2016-05 00:00: 00 08-18 00:00 :00 No TAKE ONE (1) TABLET(S) BY MOUTH ONCE A DAY. [facility] atenolol- lorthalidon e (TENORETIC) 50-25 mg per tablet 2015-05 0-25 00:00: 00 05-24 00:00 :00 No 1{tbl} QD Take 1 tablet by mouth every morning. [facility] clindamycin HCl 150 mg capsule TAKE ONE (1) CAPSULE(S) BY MOUTH EVERY SIX HOURS. clindamycin HCl 150 mg capsule TAKE ONE (1) CAPSULE(S) BY MOUTH EVERY SIX HOURS. No clindamyci n HCl 150 mg capsule TAKE ONE (1) CAPSULE(S) BY MOUTH EVERY SIX HOURS. [facility] clobetasol 0.05 % topical cream APPLY SMALL AMOUNT TO AFFECTED AREA ON HANDS ONCE OR TWICE DAILY NEEDED FOR ITCHING. clobetasol 0.05 % topical cream APPLY SMALL AMOUNT TO AFFECTED AREA ON HANDS ONCE OR TWICE DAILY NEEDED FOR ITCHING. No clobetasol 0.05 % topical cream APPLY SMALL AMOUNT TO AFFECTED AREA ON HANDS ONCE OR TWICE DAILY NEEDED FOR ITCHING. [facility] methylpredn isolone 4 mg tablets in a dose pack TAKE DIRECTED BY PACKAGE INSTRUCTION S. methylpredn isolone 4 mg tablets in a dose pack TAKE DIRECTED BY PACKAGE INSTRUCTION S. No methylpred nisolone 4 mg tablets in a dose pack TAKE DIRECTED BY PACKAGE INSTRUCTIO NS. [facility] albuterol sulfate HFA 90 mcg/actuati on aerosol inhaler INHALE 2 PUFFS INTO THE LUNGS EVERY 6 HOURS NEEDED FOR WHEEZING albuterol sulfate HFA 90 mcg/actuati on aerosol inhaler INHALE 2 PUFFS INTO THE LUNGS EVERY 6 HOURS NEEDED FOR WHEEZING No albuterol sulfate HFA 90 mcg/actuat ion aerosol inhaler INHALE 2 PUFFS INTO THE LUNGS EVERY 6 HOURS NEEDED FOR WHEEZING [facility] amoxicillin 500 mg capsule TAKE FOUR (4) CAPSULE(S) BY MOUTH ONE HOUR PRIOR TO SURGERY, THEN TAKE ONE (1) CAPSULE(S) EVERY EIGHT HOURS UNTIL GONE. amoxicillin 500 mg capsule TAKE FOUR (4) CAPSULE(S) BY MOUTH ONE HOUR PRIOR TO SURGERY, THEN TAKE ONE (1) CAPSULE(S) EVERY EIGHT HOURS UNTIL GONE. No amoxicilli n 500 mg capsule TAKE FOUR (4) CAPSULE(S) BY MOUTH ONE HOUR PRIOR TO SURGERY, THEN TAKE ONE (1) CAPSULE(S) EVERY EIGHT HOURS UNTIL GONE. [facility] amoxicillin 875 mg-potassiu m clavulanate 125 mg tablet TAKE ONE (1) TABLET(S) BY MOUTH TWICE A DAY. amoxicillin 875 mg-potassiu m clavulanate 125 mg tablet TAKE ONE (1) TABLET(S) BY MOUTH TWICE A DAY. No amoxicilli n 875 mg-potassi um clavulanat e 125 mg tablet TAKE ONE (1) TABLET(S) BY MOUTH TWICE A DAY. [facility] atorvastati n 20 mg tablet TAKE ONE (1) TABLET (20 MG TOTAL) BY MOUTH DAILY. atorvastati n 20 mg tablet TAKE ONE (1) TABLET (20 MG TOTAL) BY MOUTH DAILY. No atorvastat in 20 mg tablet TAKE ONE (1) TABLET (20 MG TOTAL) BY MOUTH DAILY. [facility] azithromyci n 250 mg tablet TAKE 2 TABLETS BY MOUTH ON DAY 1, THEN 1 TABLET DAILY ON DAYS 2 TO 5. azithromyci n 250 mg tablet TAKE 2 TABLETS BY MOUTH ON DAY 1, THEN 1 TABLET DAILY ON DAYS 2 TO 5. No azithromyc in 250 mg tablet TAKE 2 TABLETS BY MOUTH ON DAY 1, THEN 1 TABLET DAILY ON DAYS 2 TO 5. [facility] bromphenira mine-pseudo ephedrine-D M 2 mg-30 mg-10 mg/5 mL oral syrup TAKE 10 ML(S) BY MOUTH 4 TIMES DAILY NEEDED. bromphenira mine-pseudo ephedrine-D M 2 mg-30 mg-10 mg/5 mL oral syrup TAKE 10 ML(S) BY MOUTH 4 TIMES DAILY NEEDED. No bromphenir amine-pseu doephedrin e-DM 2 mg-30 mg-10 mg/5 mL oral syrup TAKE 10 ML(S) BY MOUTH 4 TIMES DAILY NEEDED. [facility] dexamethaso ne 2 mg tablet TAKE ONE (1) TABLET (2 MG TOTAL) BY MOUTH IN THE MORNING AND 1 TABLET (2 MG TOTAL) IN THE EVENING. TAKE WITH MEALS. dexamethaso ne 2 mg tablet TAKE ONE (1) TABLET (2 MG TOTAL) BY MOUTH IN THE MORNING AND 1 TABLET (2 MG TOTAL) IN THE EVENING. TAKE WITH MEALS. No dexamethas one 2 mg tablet TAKE ONE (1) TABLET (2 MG TOTAL) BY MOUTH IN THE MORNING AND 1 TABLET (2 MG TOTAL) IN THE EVENING. TAKE WITH MEALS. [facility] doxycycline hyclate 100 mg capsule TAKE ONE (1) CAPSULE(S) BY MOUTH EVERY TWELVE HOURS. doxycycline hyclate 100 mg capsule TAKE ONE (1) CAPSULE(S) BY MOUTH EVERY TWELVE HOURS. No doxycyclin e hyclate 100 mg capsule TAKE ONE (1) CAPSULE(S) BY MOUTH EVERY TWELVE HOURS. [facility] hydrocodone 5 mg-acetamin ophen 325 mg tablet TAKE ONE (1) TABLET(S) BY MOUTH EVERY FOUR TO SIX HOURS. hydrocodone 5 mg-acetamin ophen 325 mg tablet TAKE ONE (1) TABLET(S) BY MOUTH EVERY FOUR TO SIX HOURS. No hydrocodon e 5 mg-acetami nophen 325 mg tablet TAKE ONE (1) TABLET(S) BY MOUTH EVERY FOUR TO SIX HOURS. [facility] incontrol 6mm 31g pen USE DIRECTED ONCE DAILY. incontrol 6mm 31g pen USE DIRECTED ONCE DAILY. No incontrol 6mm 31g pen USE DIRECTED ONCE DAILY. [facility] sumatriptan 50 mg tablet TAKE ONE (1) TABLET BY MOUTH DIRECTED NEEDED FOR HEADACHE. MAY REPEAT DOSE ONCE AFTER 2 HOURS. sumatriptan 50 mg tablet TAKE ONE (1) TABLET BY MOUTH DIRECTED NEEDED FOR HEADACHE. MAY REPEAT DOSE ONCE AFTER 2 HOURS. No sumatripta n 50 mg tablet TAKE ONE (1) TABLET BY MOUTH DIRECTED NEEDED FOR HEADACHE. MAY REPEAT DOSE ONCE AFTER 2 HOURS. [facility] topiramate 25 mg tablet TAKE ONE (1) TABLET(S) BY MOUTH ONCE A DAY FOR 3 DAYS , THEN TAKE 1 TABLET EVERY 12 HOURS FOR 3 DAYS , THEN TAKE 2 TABLETS EVERY 12 HOURS. topiramate 25 mg tablet TAKE ONE (1) TABLET(S) BY MOUTH ONCE A DAY FOR 3 DAYS , THEN TAKE 1 TABLET EVERY 12 HOURS FOR 3 DAYS , THEN TAKE 2 TABLETS EVERY 12 HOURS. No topiramate 25 mg tablet TAKE ONE (1) TABLET(S) BY MOUTH ONCE A DAY FOR 3 DAYS , THEN TAKE 1 TABLET EVERY 12 HOURS FOR 3 DAYS , THEN TAKE 2 TABLETS EVERY 12 HOURS. [facility] amitriptyli ne 50 mg tablet TAKE ONE (1) TABLET(S) BY MOUTH AT BEDTIME. amitriptyli ne 50 mg tablet TAKE ONE (1) TABLET(S) BY MOUTH AT BEDTIME. No amitriptyl ine 50 mg tablet TAKE ONE (1) TABLET(S) BY MOUTH AT BEDTIME. [facility] nortriptyli ne 25 mg capsule TAKE ONE (1) CAPSULE(S) BY MOUTH ONCE DAILY AT BEDTIME. nortriptyli ne 25 mg capsule TAKE ONE (1) CAPSULE(S) BY MOUTH ONCE DAILY AT BEDTIME. No nortriptyl ine 25 mg capsule TAKE ONE (1) CAPSULE(S) BY MOUTH ONCE DAILY AT BEDTIME. [facility] nortriptyli ne 50 mg capsule TAKE ONE (1) CAPSULE(S) BY MOUTH AT BEDTIME FOR NERVE PAIN. nortriptyli ne 50 mg capsule TAKE ONE (1) CAPSULE(S) BY MOUTH AT BEDTIME FOR NERVE PAIN. No nortriptyl ine 50 mg capsule TAKE ONE (1) CAPSULE(S) BY MOUTH AT BEDTIME FOR NERVE PAIN. [facility] Paxlovid 300 mg (150 mg x 2)-100 mg tablets in a dose pack TAKE THREE (3) TABLETS (2 NIRMATRELVI R AND 1 RITONAVIR) BY MOUTH TWICE A DAY FOR 5 DAYS. Paxlovid 300 mg (150 mg x 2)-100 mg tablets in a dose pack TAKE THREE (3) TABLETS (2 NIRMATRELVI R AND 1 RITONAVIR) BY MOUTH TWICE A DAY FOR 5 DAYS. No Paxlovid 300 mg (150 mg x 2)-100 mg tablets in a dose pack TAKE THREE (3) TABLETS (2 NIRMATRELV IR AND 1 RITONAVIR) BY MOUTH TWICE A DAY FOR 5 DAYS. [facility] pregabalin 100 mg capsule TAKE ONE (1) CAPSULE BY MOUTH 3 TIMES A DAY. pregabalin 100 mg capsule TAKE ONE (1) CAPSULE BY MOUTH 3 TIMES A DAY. No pregabalin 100 mg capsule TAKE ONE (1) CAPSULE BY MOUTH 3 TIMES A DAY. [facility] pregabalin 150 mg capsule TAKE ONE (1) CAPSULE(S) BY MOUTH THREE TIMES A DAY FOR NECK AND NERVE PAIN. pregabalin 150 mg capsule TAKE ONE (1) CAPSULE(S) BY MOUTH THREE TIMES A DAY FOR NECK AND NERVE PAIN. No pregabalin 150 mg capsule TAKE ONE (1) CAPSULE(S) BY MOUTH THREE TIMES A DAY FOR NECK AND NERVE PAIN. [facility] valacyclovi r 500 mg tablet TAKE ONE (1) TABLET BY MOUTH DAILY . MAY TAKE TWICE DAILY FOR 3 DAYS FOR OUTBREAKS. valacyclovi r 500 mg tablet TAKE ONE (1) TABLET BY MOUTH DAILY . MAY TAKE TWICE DAILY FOR 3 DAYS FOR OUTBREAKS. No valacyclov ir 500 mg tablet TAKE ONE (1) TABLET BY MOUTH DAILY . MAY TAKE TWICE DAILY FOR 3 DAYS FOR OUTBREAKS. [facility] zolpidem 5 mg tablet TAKE ONE (1) TABLET(S) BY MOUTH AT BEDTIME. zolpidem 5 mg tablet TAKE ONE (1) TABLET(S) BY MOUTH AT BEDTIME. No zolpidem 5 mg tablet TAKE ONE (1) TABLET(S) BY MOUTH AT BEDTIME. [facility] Immunizations Ordered Immunization Name Filled Immunization Name Date Status Comments Source Tdap- (Boostrix, Adacel) 2022-09-08 00:00:00 Kimberly Crespo External Influenza, Injectable, Mdck, Quadrivalent With Preservatie 2021-06-05 00:00:00 Kimberly Johnson - External Influenza, Injectable, Mdck, Quadrivalent With Preservatie 2021-06-05 00:00:00 Completed Antonia Johnson - External Influenza, Injectable, Mdck, Quadrivalent With Preservatie 2021-06-05 00:00:00 Completed Antonia Crespo External Influenza, Injectable, Mdck, Quadrivalent With Preservatie 2021-06-05 00:00:00 Completed Antonia Johnson - External Influenza, Injectable, Mdck, Quadrivalent With Preservatie 2021-06-05 00:00:00 Kimberly Crespo External Influenza, Injectable, Mdck, Quadrivalent With Preservatie 2021-06-05 00:00:00 Completed Antonia Seybold - External Influenza, Injectable, Mdck, Quadrivalent With Preservative 2021-06-05 00:00:00 Completed Antonia Seybold - External Influenza, Injectable, Mdck, Quadrivalent With Preservatie 2021-06-05 00:00:00 Completed Antonia Seybold Influenza, Injectable, Mdck, Quadrivalent With Preservatie 2021-06-05 00:00:00 Completed Antonia Seybold Pneumococcal Vaccine, Conjugate 7 2019-06-01 00:00:00 Completed Antonia Seybold - External Pneumococcal Vaccine, Conjugate 7 2019-06-01 00:00:00 Completed Antonia Seybold - External Pneumococcal Vaccine, Conjugate 7 2019-06-01 00:00:00 Completed Antonia Seybold - External Pneumococcal Vaccine, Conjugate 7 2019-06-01 00:00:00 Completed Antonia Seybold - External Pneumococcal Vaccine, Conjugate 7 2019-06-01 00:00:00 Completed Antonia Seybold - External Pneumococcal Vaccine, Conjugate 7 2019-06-01 00:00:00 Completed Antonia Seybold - External Pneumococcal Vaccine, Conjugate 7 2019-06-01 00:00:00 Completed Antonia Seybold - External Influenza Virus Vaccine, age 6 months and up 2018-03-08 00:00:00 Completed Antonia Seybold - External Influenza Virus Vaccine, No Preserv, age 6 months and up 2018-03-08 00:00:00 Completed Antonia Seybold - External Influenza Virus Vaccine, age 6 months and up 2018-03-08 00:00:00 Completed Antonia Seybold - External Influenza Virus Vaccine, No Preserv, age 6 months and up 2018-03-08 00:00:00 Completed Antonia Seybold - External Influenza Virus Vaccine, age 6 months and up 2018-03-08 00:00:00 Completed Antonia Seybold - External Influenza Virus Vaccine, No Preserv, age 6 months and up 2018-03-08 00:00:00 Completed Antonia Seybold - External Influenza Virus Vaccine, age 6 months and up 2018-03-08 00:00:00 Completed Antonia Seybold - External Influenza Virus Vaccine, No Preserv, age 6 months and up 2018-03-08 00:00:00 Completed Antonia Seybold - External Influenza Virus Vaccine, age 6 months and up 2018-03-08 00:00:00 Completed Antonia Seybold - External Influenza Virus Vaccine, No Preserv, age 6 months and up 2018-03-08 00:00:00 Completed Antonia Seybold - External Influenza Virus Vaccine, age 6 months and up 2018-03-08 00:00:00 Completed Antonia Seybold - External Influenza Virus Vaccine, No Preserv, age 6 months and up 2018-03-08 00:00:00 Completed Antonia Seybold - External Influenza Virus Vaccine, age 6 months and up 2018-03-08 00:00:00 Completed Antonia Seybold Influenza Virus Vaccine, No Preserv, age 6 months and up 2018-03-08 00:00:00 Completed Antonia Seybold Influenza Virus Vaccine, age 6 months and up 2018-03-08 00:00:00 Completed Antonia Seybold - External Influenza Virus Vaccine, No Preserv, age 6 months and up 2018-03-08 00:00:00 Completed Antonia Seybold - External Influenza Virus Vaccine, age 6 months and up 2018-03-08 00:00:00 Completed Antonia Seybold Influenza Virus Vaccine, No Preserv, age 6 months and up 2018-03-08 00:00:00 Completed Antonia Seybold Influenza Virus Vaccine, age 6 months and up 2018-03-08 00:00:00 Completed Antonia Seybold Influenza Virus Vaccine, No Preserv, age 6 months and up 2018-03-08 00:00:00 Completed Antonia Seybold Tdap- (Boostrix, Adacel) 2014-04-12 00:00:00 Completed Antonia Seybold - External Tdap- (Boostrix, Adacel) 2014-04-12 00:00:00 Completed Antonia Seybold - External Tdap- (Boostrix, Adacel) 2014-04-12 00:00:00 Completed Antonia Seybold - External Tdap- (Boostrix, Adacel) 2014-04-12 00:00:00 Completed Antonia Seybold - External Tdap- (Boostrix, Adacel) 2014-04-12 00:00:00 Completed Antonia Seybold - External Tdap- (Boostrix, Adacel) 2014-04-12 00:00:00 Completed Antonia Seybold - External Tdap- (Boostrix, Adacel) 2014-04-12 00:00:00 Completed Antonia Seybold Tdap- (Boostrix, Adacel) 2014-04-12 00:00:00 Completed Antonia Seybold - External Tdap- (Boostrix, Adacel) 2014-04-12 00:00:00 Completed Antonia Seybold Tdap- (Boostrix, Adacel) 2014-04-12 00:00:00 Completed Antonia Seybold Tdap- (Boostrix, Adacel) 2002-09-08 00:00:00 Completed Antonia Seybold - External Tdap- (Boostrix, Adacel) 2002-09-08 00:00:00 Completed Antonia Seybold - External Tdap- (Boostrix, Adacel) Unknown Completed Antonia Seybold - External Influenza Virus Vaccine, age 6 months and up Unknown Completed Antonia Seybold - External Influenza Virus Vaccine, No Preserv, age 6 months and up Unknown Completed Antonia Seybold - External Influenza, Injectable, Mdck, Quadrivalent With Preservative Unknown Completed Antonia Seybold - External Pneumococcal Vaccine, Conjugate 7 Unknown Completed Antonia Seybold - External Tdap- (Boostrix, Adacel) Unknown Completed Antonia Seybold - External Influenza Virus Vaccine, age 6 months and up Unknown Completed Antonia Seybold - External Influenza Virus Vaccine, No Preserv, age 6 months and up Unknown Completed Antonia Seybold - External Influenza, Injectable, Mdck, Quadrivalent With Preservative Unknown Completed Antonia Seybold - External Pneumococcal Vaccine, Conjugate 7 Unknown Completed Antonia Seybold - External Tdap- (Boostrix, Adacel) Unknown Completed Antonia Seybold - External Influenza Virus Vaccine, age 6 months and up Unknown Completed Antonia Seybold - External Influenza Virus Vaccine, No Preserv, age 6 months and up Unknown Completed Antonia Seybold - External Influenza, Injectable, Mdck, Quadrivalent With Preservative Unknown Completed Antonia Seybold - External Pneumococcal Vaccine, Conjugate 7 Unknown Completed Antonia Seybold - External Tdap- (Boostrix, Adacel) Unknown Completed Antonia Seybold - External Influenza Virus Vaccine, age 6 months and up Unknown Completed Antonia Seybold - External Influenza Virus Vaccine, No Preserv, age 6 months and up Unknown Completed Antonia Seybold - External Influenza, Injectable, Mdck, Quadrivalent With Preservative Unknown Completed Antonia Seybold - External Pneumococcal Vaccine, Conjugate 7 Unknown Completed Antonia Seybold - External Tdap- (Boostrix, Adacel) Unknown Completed Antonia Seybold - External Influenza Virus Vaccine, age 6 months and up Unknown Completed Antonia Seybold - External Influenza Virus Vaccine, No Preserv, age 6 months and up Unknown Completed Antonia Seybold - External Influenza, Injectable, Mdck, Quadrivalent With Preservative Unknown Completed Antonia Seybold - External Pneumococcal Vaccine, Conjugate 7 Unknown Completed Antonia Seybold - External Tdap- (Boostrix, Adacel) Unknown Completed Antonia Seybold - External Influenza Virus Vaccine, age 6 months and up Unknown Completed Antonia Seybold - External Influenza Virus Vaccine, No Preserv, age 6 months and up Unknown Completed Antonia Seybold - External Influenza, Injectable, Mdck, Quadrivalent With Preservative Unknown Completed Antonia Seybold - External Pneumococcal Vaccine, Conjugate 7 Unknown Completed Antonia Seybold - External Tdap- (Boostrix, Adacel) Unknown Completed Antonia Seybold - External Influenza Virus Vaccine, age 6 months and up Unknown Completed Antonia Seybold - External Influenza Virus Vaccine, No Preserv, age 6 months and up Unknown Completed Antonia Seybold - External Influenza, Injectable, Mdck, Quadrivalent With Preservative Unknown Completed Antonia Seybold - External Pneumococcal Vaccine, Conjugate 7 Unknown Completed Antonia Seybold - External Influenza Virus Vaccine, Unspecified Formulation Unknown Completed Antonia Seybold - External FLUCELVAX QUAD PF (MULTI-DOSE VIAL) Unknown Completed [facility] FLUCELVAX QUAD PF (MULTI-DOSE VIAL) Unknown Completed [facility] Influenza, Injectable, Quadrivalent, Preservative Free Unknown Completed [facility] FLUBLOK QUAD PF Unknown Completed [facility] Influenza, Unspecified Unknown Completed [facility] Influenza, Unspecified Unknown Completed [facility] Pneumococcal Conjugate Unknown Completed [facility] Tdap Unknown Completed [facility] Tdap Unknown Completed [facility] Tdap Unknown Completed [facility] pneumococcal conjugate PCV 7 pneumococcal conjugate PCV 7 Unknown Completed [facility] Vital Signs Vital Name Observation Time Observation Value Comments S ource Systolic blood pressure 2024-01-15 19:43:00 132 mm[Hg] Antonia Seybo ld - External Diastolic blood pressure 2024-01-15 19:43:00 76 mm[Hg] Antonia Seybo ld - External Heart rate 2024-01-15 19:43:00 82 /min Kelse y Seybold - External Body temperature 2024-01-15 19:43:00 36.56 Katie Antonia Seybold - External Respiratory rate 2024-01-15 19:43:00 16 /min Antonia Seybold - External Body height 2024-01-15 19:43:00 165.1 cm Lisseth ey Seybold - External Body weight 2024-01-15 19:43:00 87.998 kg Lisseth ey Seybold - External BMI 2024-01-15 19:43:00 32.28 kg/m2 Lisseth ey Seybold - External Oxygen saturation in Arterial blood by Pulse oximetry 2024-01-15 19:43:00 96 /min Antonia Seybo ld - External Systolic blood pressure 2023-05-20 16:11:00 132 mm[Hg] Antonia Seybo ld - External Diastolic blood pressure 2023-05-20 16:11:00 70 mm[Hg] Antonia Seybo ld - External Heart rate 2023-05-20 16:11:00 106 /min Kelse y Seybold - External Respiratory rate 2023-05-20 16:11:00 18 /min Antonia Seybold - External Body height 2023-05-20 16:11:00 165.1 cm Lisseth ey Seybold - External Body weight 2023-05-20 16:11:00 82.192 kg Lisseth ey Seybold - External BMI 2023-05-20 16:11:00 30.15 kg/m2 Lisseth ey Seybold - External Systolic blood pressure 2023-04-28 18:51:00 121 mm[Hg] Antonia Seybo ld - External Diastolic blood pressure 2023-04-28 18:51:00 77 mm[Hg] Antonia Seybo ld - External Heart rate 2023-04-28 18:51:00 88 /min Kelse y Seybold - External Body temperature 2023-04-28 18:51:00 36.5 Katie Antonia Seybold - External Respiratory rate 2023-04-28 18:51:00 18 /min Antonia Seybold - External Body height 2023-04-28 18:51:00 165.1 cm Lisseth ey Seybold - External Body weight 2023-04-28 18:51:00 79.833 kg Lisseth ey Seybold - External BMI 2023-04-28 18:51:00 29.29 kg/m2 Lisseth ey Seybold - External Oxygen saturation in Arterial blood by Pulse oximetry 2023-04-28 18:51:00 99 /min Antonia Seybo ld - External Height 2023-04-24 00:00:00 64 [in_i] [facility] Systolic blood pressure 2023-03-26 16:25:00 132 mm[Hg] Antonia Seybo ld - External Diastolic blood pressure 2023-03-26 16:25:00 91 mm[Hg] Antonia Seybo ld - External Heart rate 2023-03-26 16:25:00 85 /min Kelse y Seybold - External Body height 2023-03-26 16:25:00 165.1 cm Lisseth ey Seybold - External Body weight 2023-03-26 16:25:00 80.287 kg Lisseth ey Seybold - External BMI 2023-03-26 16:25:00 29.45 kg/m2 Lisseth ey Seybold - External Systolic blood pressure 2023-02-20 19:25:00 98 mm[Hg] Antonai Seybo ld - External Diastolic blood pressure 2023-02-20 19:25:00 74 mm[Hg] Antonia Seybo ld - External Heart rate 2023-02-20 19:25:00 85 /min Kelse y Seybold - External Body temperature 2023-02-20 19:25:00 35.67 Katie Antonia Seybold - External Respiratory rate 2023-02-20 19:25:00 14 /min Antonia Seybold - External Body height 2023-02-20 19:25:00 162.6 cm Lisseth ey Seybold - External Body weight 2023-02-20 19:25:00 80.74 kg Lisseth ey Seybold - External BMI 2023-02-20 19:25:00 30.55 kg/m2 Lisseth ey Seybold - External Systolic blood pressure 2023-01-07 13:18:00 106 mm[Hg] Antonia Seybo ld - External Diastolic blood pressure 2023-01-07 13:18:00 66 mm[Hg] Antonia Seybo ld - External Heart rate 2023-01-07 13:18:00 85 /min Kelse y Seybold - External Body temperature 2023-01-07 13:18:00 36.17 Katie Antonia Seybold - External Respiratory rate 2023-01-07 13:18:00 14 /min Antonia Seybold - External Body height 2023-01-07 13:18:00 162.6 cm Lisseth ey Seybold - External Body weight 2023-01-07 13:18:00 80.74 kg Lisseth ey Seybold - External BMI 2023-01-07 13:18:00 30.55 kg/m2 Lisseth ey Seybold - External Systolic blood pressure 2022-12-09 15:45:00 108 mm[Hg] Antonia Seybo ld - External Diastolic blood pressure 2022-12-09 15:45:00 68 mm[Hg] Antonia Seybo ld - External Heart rate 2022-12-09 15:45:00 81 /min Kelse y Seybold - External Body temperature 2022-12-09 15:45:00 36.11 Katie Antonia Seybold - External Respiratory rate 2022-12-09 15:45:00 16 /min Antonia Seybold - External Body height 2022-12-09 15:45:00 162.6 cm Lisseth ey Seybold - External Body weight 2022-12-09 15:45:00 78.291 kg Lisseth ey Seybold - External BMI 2022-12-09 15:45:00 29.63 kg/m2 Lisseth ey Seybold - External Oxygen saturation in Arterial blood by Pulse oximetry 2022-12-09 15:45:00 96 /min Antonia Seybo ld - External Systolic blood pressure 2022-06-16 14:51:00 134 mm[Hg] Antonia Seybo ld - External Diastolic blood pressure 2022-06-16 14:51:00 82 mm[Hg] Antonia Seybo ld - External Heart rate 2022-06-16 14:51:00 108 /min Kelse y Seybold - External Respiratory rate 2022-06-16 14:51:00 16 /min Antonia Seybold - External Body height 2022-06-16 14:51:00 162.6 cm Lisseth ey Seybold - External Body weight 2022-06-16 14:51:00 83.915 kg Lisseth ey Seybold - External BMI 2022-06-16 14:51:00 31.76 kg/m2 Lisseth ey Seybold - External Systolic blood pressure 2022-06-03 22:11:00 128 mm[Hg] Antonia Seybo ld - External Diastolic blood pressure 2022-06-03 22:11:00 77 mm[Hg] Antonia Seybo ld - External Heart rate 2022-06-03 22:11:00 84 /min Kelse y Seybold - External Body temperature 2022-06-03 22:11:00 37.06 Katie Antonia Seybold - External Respiratory rate 2022-06-03 22:11:00 14 /min Antonia Seybold - External Body height 2022-06-03 22:11:00 162.6 cm Lisseth ey Seybold - External Body weight 2022-06-03 22:11:00 82.555 kg Lisseth ey Seybold - External BMI 2022-06-03 22:11:00 31.24 kg/m2 Lisseth ey Seybold - External Oxygen saturation in Arterial blood by Pulse oximetry 2022-06-03 22:11:00 99 /min Antonia Seybo ld - External Systolic blood pressure 2022-04-28 17:28:00 118 mm[Hg] Antonia Seybo ld - External Diastolic blood pressure 2022-04-28 17:28:00 66 mm[Hg] Antonia Seybo ld - External Heart rate 2022-04-28 17:28:00 113 /min Kelse y Seybold - External Body temperature 2022-04-28 17:28:00 36.56 Katie Antonia Seybold - External Respiratory rate 2022-04-28 17:28:00 16 /min Antonia Seybold - External Body height 2022-04-28 17:28:00 162.6 cm Lisseth ey Seybold - External Body weight 2022-04-28 17:28:00 83.008 kg Lisseth ey Seybold - External BMI 2022-04-28 17:28:00 31.41 kg/m2 Lisseth ey Seybold - External Height 2022-04-09 00:00:00 65 [in_i] [facility] BMI (Body Mass Index) 2022-04-09 00:00:00 30 kg/m2 [facility] Body Weight 2022-04-09 00:00:00 180 [lb_av] [facility] Systolic blood pressure 2022-03-17 15:21:00 110 mm[Hg] Antonia Seybo ld - External Diastolic blood pressure 2022-03-17 15:21:00 64 mm[Hg] Antonia Seybo ld - External Heart rate 2022-03-17 15:21:00 94 /min Kelse y Seybold - External Body temperature 2022-03-17 15:21:00 36.06 Katie Antonia Seybold - External Respiratory rate 2022-03-17 15:21:00 16 /min Antonia Seybold - External Body height 2022-03-17 15:21:00 162.6 cm Lisseth ey Seybold - External Body weight 2022-03-17 15:21:00 84.823 kg Lisseth ey Seybold - External BMI 2022-03-17 15:21:00 32.10 kg/m2 Lisseth ey Seybold - External Height 2022-02-26 00:00:00 65 [in_i] [facility] BMI (Body Mass Index) 2022-02-26 00:00:00 30 kg/m2 [facility] Body Weight 2022-02-26 00:00:00 180 [lb_av] [facility] Body temperature 2021-09-24 19:25:00 36.67 Katie Antonia Seybold Respiratory rate 2021-09-24 19:25:00 16 /min Antonia Seybold Body height 2021-09-24 19:25:00 162.6 cm Lisseth ey Seybold Body weight 2021-09-24 19:25:00 84.369 kg Lisseth ey Seybold BMI 2021-09-24 19:25:00 31.93 kg/m2 Lisseth ey Seybold Systolic blood pressure 2021-09-24 19:25:00 108 mm[Hg] Antonia Seybo ld Diastolic blood pressure 2021-09-24 19:25:00 73 mm[Hg] Antonia Seybo ld Heart rate 2021-09-24 19:25:00 83 /min Kelse y Seybold Systolic blood pressure 2021-08-22 14:44:00 122 mm[Hg] Antonia Seybo ld Diastolic blood pressure 2021-08-22 14:44:00 74 mm[Hg] Antonia Seybo ld Heart rate 2021-08-22 14:44:00 78 /min Kelse y Seybold Body temperature 2021-08-22 14:44:00 36.72 Katie Antonia Seybold Respiratory rate 2021-08-22 14:44:00 14 /min Antonia Seybold Body height 2021-08-22 14:44:00 165.1 cm Lisseth ey Seybold Body weight 2021-08-22 14:44:00 83.19 kg Lisseth ey Seybold BMI 2021-08-22 14:44:00 30.52 kg/m2 Lisseth ey Seybold Systolic blood pressure 2021-03-20 16:21:00 118 mm[Hg] Antonia Seybo ld Diastolic blood pressure 2021-03-20 16:21:00 70 mm[Hg] Antonia Seybo ld Heart rate 2021-03-20 16:21:00 87 /min Kelse y Seybold Respiratory rate 2021-03-20 16:21:00 14 /min Antonia Seybold Body height 2021-03-20 16:21:00 165.1 cm Lisseth ey Seybold Body weight 2021-03-20 16:21:00 87.091 kg Lisseth ey Seybold BMI 2021-03-20 16:21:00 31.95 kg/m2 Lisseth ey Seybold Systolic blood pressure 2021-03-20 16:21:00 118 mm[Hg] Antonia Seybo ld Diastolic blood pressure 2021-03-20 16:21:00 70 mm[Hg] Antonia Seybo ld Heart rate 2021-03-20 16:21:00 87 /min Vania y ybanu Respiratory rate 2021-03-20 16:21:00 14 /min Antonia Johnson Body height 2021-03-20 16:21:00 165.1 cm Lisseth Johnson Body weight 2021-03-20 16:21:00 87.091 kg Lisseth Johnson BMI 2021-03-20 16:21:00 31.95 kg/m2 Lisseth landy Johnson Systolic blood pressure 2021-03-05 20:36:00 120 mm[Hg] [facility] Diastolic blood pressure 2021-03-05 20:36:00 79 mm[Hg] [facility] Heart rate 2021-03-05 20:36:00 69 /min [facility] Body height 2021-03-05 20:36:00 165.1 cm [facility] Body weight 2021-03-05 20:36:00 81.647 kg [facility] BMI 2021-03-05 20:36:00 29.95 kg/m2 [facility] Heart rate 2024-05-24 07:59:00 86 /min [facility] Respiratory rate 2024-05-24 07:59:00 13 /min [facility] Systolic blood pressure 2024-05-24 07:49:30 142 mm[Hg] [facility] Diastolic blood pressure 2024-05-24 07:49:30 84 mm[Hg] [facility] Body temperature 2024-05-24 07:49:30 36.72 Katie [facility] Oxygen saturation in Arterial blood by Pulse oximetry 2024-05-24 07:49:30 94 /min [facility] Body height 2024-05-16 12:24:00 165.1 cm [facility] Body weight 2024-05-16 12:24:00 87.091 kg [facility] BMI 2024-05-16 12:24:00 31.95 kg/m2 [facility] Procedures Procedure Date / Time Performed Performing Clinician Source POC GLUCOSE 2024-05-24 12:06:00 Opal [facility] POC GLUCOSE 2024-05-24 07:50:00 Awar, Opal Beal CBC WITH PLATELET AND DIFFERENTIAL 2024-05-24 04:38:00 SravanthiOanh COMPREHENSIVE METABOLIC PANEL 2024-05-24 04:38:00 AddisOanh mortensen MAGNESIUM LEVEL 2024-05-24 04:38:00 Sravanthi, Oanh Farleyist PHOSPHORUS LEVEL 2024-05-24 04:38:00 Sravanthi, Oanh Farleyist ESTIMATED GFR 2024-05-24 04:38:00 Awar, Opal [facility] POC GLUCOSE 2024-05-24 04:25:00 Awar, Opal [facility] POC GLUCOSE 2024-05-24 00:44:00 Awar, Opal [facility] POC GLUCOSE 2024-05-23 20:50:00 Awar, Opal [facility] POC GLUCOSE 2024-05-23 17:56:00 Awar, [facility] POC GLUCOSE 2024-05-23 12:15:00 Awar, Opal [facility] POC GLUCOSE 2024-05-23 08:15:00 Force, Jakob [facility] POC GLUCOSE 2024-05-23 04:22:00 Force, Jak[facility] POC GLUCOSE 2024-05-23 00:12:00 Force, [facility] POC GLUCOSE 2024-05-22 20:09:00 Force, [facility] POC GLUCOSE 2024-05-22 16:29:00 Force, [facility] POC GLUCOSE 2024-05-22 11:35:00 Force, [facility] POC GLUCOSE 2024-05-22 07:42:00 Force, [facility] POC GLUCOSE 2024-05-21 23:58:00 Force, [facility] POC GLUCOSE 2024-05-21 20:43:00 Force, [facility] POC GLUCOSE 2024-05-21 16:48:00 Force, [facility] POC GLUCOSE 2024-05-21 12:34:00 Force, [facility] POC GLUCOSE 2024-05-21 07:52:00 Force, [facility] POC GLUCOSE 2024-05-21 03:59:00 [facility] POC GLUCOSE 2024-05-20 23:43:00 [facility] POC GLUCOSE 2024-05-20 20:03:00 [facility] POC GLUCOSE 2024-05-20 12:08:00 [facility] POC GLUCOSE 2024-05-20 08:20:00 [facility] CBC WITH PLATELET AND DIFFERENTIAL 2024-05-20 04:00:00 Azul Cota COMPREHENSIVE METABOLIC PANEL 2024-05-20 04:00:00 Azul Cota [facility] MAGNESIUM LEVEL 2024-05-20 04:00:00 Azul Cota PHOSPHORUS LEVEL 2024-05-20 04:00:00 Azul Cota ESTIMATED GFR 2024-05-20 04:00:00 [facility] POC GLUCOSE 2024-05-19 21:20:00 [facility] POC GLUCOSE 2024-05-19 18:08:00 Jakob Li XR SPINE SCOLIOSIS 2-3 VIEWS 2024-05-19 16:55:00 [facility] POC GLUCOSE 2024-05-19 11:52:00 [facility] POC GLUCOSE 2024-05-19 08:44:00 Jakob Li CBC WITH PLATELET AND DIFFERENTIAL 2024-05-19 04:14:00 Azul Cota COMPREHENSIVE METABOLIC PANEL 2024-05-19 04:14:00 Azul Cota [facility] MAGNESIUM LEVEL 2024-05-19 04:14:00 Azul Cota PHOSPHORUS LEVEL 2024-05-19 04:14:00 Azul Cota ESTIMATED GFR 2024-05-19 04:14:00 Jak[facility] POC GLUCOSE 2024-05-18 19:57:00 [facility] POC GLUCOSE 2024-05-18 17:56:00 Force, Jakob [facility] POC GLUCOSE 2024-05-18 11:54:00 Force, [facility] POC GLUCOSE 2024-05-18 08:51:00 Force, Jak[facility] CBC WITH PLATELET AND DIFFERENTIAL 2024-05-18 05:12:00 Subhi, Oanh [facility] COMPREHENSIVE METABOLIC PANEL 2024-05-18 05:12:00 Subhi, [place] [facility] MAGNESIUM LEVEL 2024-05-18 05:12:00 Subhi, Hugo [facility] PHOSPHORUS LEVEL 2024-05-18 05:12:00 AddisOanh mortensenist ESTIMATED GFR 2024-05-18 05:12:00 [facility] POC GLUCOSE 2024-05-17 20:48:00 ForceaJkob [facility] POC GLUCOSE 2024-05-17 17:27:00 Force, Jak[facility] POC GLUCOSE 2024-05-17 12:00:00 [facility] POC GLUCOSE 2024-05-17 08:07:00 [facility] CBC WITH PLATELET AND DIFFERENTIAL 2024-05-17 06:12:00 Subhi, [place] [facility] COMPREHENSIVE METABOLIC PANEL 2024-05-17 06:12:00 Subfestus, Oanh [facility] MAGNESIUM LEVEL 2024-05-17 06:12:00 Subwi, [place] [facility] PHOSPHORUS LEVEL 2024-05-17 06:12:00 SubwiOanh [facility] ESTIMATED GFR 2024-05-17 06:12:00 Force, Jak[facility] POC GLUCOSE 2024-05-17 00:41:00 Force, [facility] POC GLUCOSE 2024-05-16 20:13:00 Force, [facility] POC GLUCOSE 2024-05-16 17:48:00 [facility] [place] > 1 HOUR 2024-05-16 16:50:00 [facility] [place] > 1 HOUR 2024-05-16 16:00:00 Surinder Torre CENTRAL LINE 2024-05-16 14:56:20 Love Sepulveda ARTERIAL LINE 2024-05-16 14:55:26 Love Sepulveda XR CHEST 1 VW PORTABLE 2024-05-16 14:00:00 Surinder Torre [place] AN ELECTIVE ENDOTRACHEAL AIRWAY 2024-05-16 13:22:00 Love Sepulveda FUSION,ANTERIOR AND LATERAL APPROACHES,LUMBAR 2024-05-16 13:16:00 Surinder Torre POC GLUCOSE 2024-05-16 11:56:00 Jakob Li POC GLUCOSE 2024-05-16 07:23:00 Jakob Li MAGNESIUM LEVEL 2024-05-16 04:00:00 Azul Cota CBC WITH PLATELET AND DIFFERENTIAL 2024-05-16 04:00:00 Azul Cota COMPREHENSIVE METABOLIC PANEL 2024-05-16 04:00:00 Azul Cota ESTIMATED GFR 2024-05-16 04:00:00 Jamar Soto POC GLUCOSE 2024-05-15 17:45:00 Jamar Soto POC GLUCOSE 2024-05-15 12:03:00 Jamar Soto TYPE AND SCREEN 2024-05-15 12:02:00 Basim Bright POC GLUCOSE 2024-05-15 08:09:00 Jamar Soto PHOSPHORUS LEVEL 2024-05-15 05:00:00 Azul Cota MAGNESIUM LEVEL 2024-05-15 05:00:00 Azul Cota CBC WITH PLATELET AND DIFFERENTIAL 2024-05-15 05:00:00 Azul Cota COMPREHENSIVE METABOLIC PANEL 2024-05-15 05:00:00 Azul Cota ESTIMATED GFR 2024-05-15 05:00:00 Jamar Soto POC GLUCOSE 2024-05-15 03:56:00 Jamar Soto POC GLUCOSE 2024-05-14 23:23:00 Jamar Soto [facility] POC GLUCOSE 2024-05-14 20:40:00 Jamar Soto UNMONITORED VIDEO-EEG 12 HRS 1MIN-26HRS 2024-05-14 15:21:17 Sumit Thomason POC GLUCOSE 2024-05-14 14:34:00 Jamar Soto POC GLUCOSE 2024-05-14 12:16:00 Jamar Soto POC GLUCOSE 2024-05-14 07:41:00 Jamar Soto XR CHEST 1 VW PORTABLE 2024-05-14 07:00:10 Jamar Soto POC GLUCOSE 2024-05-14 04:24:00 Jamar Soto PHOSPHORUS LEVEL 2024-05-14 03:46:00 Azul Cota MAGNESIUM LEVEL 2024-05-14 03:46:00 Azul Cota CBC WITH PLATELET AND DIFFERENTIAL 2024-05-14 03:46:00 Azul Cota COMPREHENSIVE METABOLIC PANEL 2024-05-14 03:46:00 Azul Cota PROCALCITONIN 2024-05-14 03:46:00 Azul Cota VENOUS BLOOD GAS 2024-05-14 03:46:00 Azul Cota AMMONIA LEVEL 2024-05-14 03:46:00 Jamar Soto MANUAL DIFFERENTIAL 2024-05-14 03:46:00 Jamar Soto ESTIMATED GFR 2024-05-14 03:46:00 Jamar Soto EEG SETUP 2024-05-14 00:27:21 Sumit Thomason POC GLUCOSE 2024-05-14 00:11:00 Jamar Soto XR ABDOMEN 1 VW PORTABLE 2024-05-13 22:00:26 Azul Cota POC GLUCOSE 2024-05-13 20:15:00 Jamar Soto EEG (ROUTINE) 2024-05-13 15:41:56 Sumit Thomason POC GLUCOSE 2024-05-13 15:41:00 Jamar Soto POC GLUCOSE 2024-05-13 12:08:00 Jamar Soto IR LUMBAR PUNCTURE 2024-05-13 11:31:00 Sumit Thomason CSF CULTURE 2024-05-13 11:15:00 Sumit Thomason FUNGUS CULTURE 2024-05-13 11:15:00 Sumit Thomason AFB CULTURE 2024-05-13 11:15:00 Sumit Thomason MENINGITIS/ENCEPHALITIS PANEL 2024-05-13 11:15:00 Sumit Thomaosn GRAM STAIN 2024-05-13 11:15:00 Jamar Soto CRYPTOCOCCAL ANTIGEN SCREEN 2024-05-13 11:15:00 Jamar Soto VDRL, CSF 2024-05-13 11:15:00 Sumit Thomason CSF CELL COUNT WITH DIFFERENTIAL 2024-05-13 11:14:00 Sumit Thomason GLUCOSE LEVEL, CSF 2024-05-13 11:14:00 Sumit Thomason IGG SYNTHESIS RATE STUDY 2024-05-13 11:14:00 Sumit Thomason CYTOMEGALOVIRUS BY PCR 2024-05-13 11:14:00 Sumit Thomason ANTONIO-LINTON VIRUS (EBV), QUANTITATIVE PCR 2024-05-13 11:14:00 Sumit Thomason HERPES SIMPLEX VIRUS (HSV), QUALITATIVE PCR (BLOOD, FLUIDS OR SWAB IN UNIVERSAL TRANSPORT MEDIA) 2024-05-13 11:14:00 Sumit Thomason [place] VIRUS ANTIBODY PANEL, CSF 2024-05-13 11:14:00 Sumit Thomason [place] VIRUS BY PCR, CSF 2024-05-13 11:14:00 Sumit Thomason OLIGOCLONAL BANDING, CSF 2024-05-13 11:14:00 Jamar Soto ENTEROVIRUS BY PCR 2024-05-13 11:14:[address] HEAD WO CONTRAST 2024-05-13 10:36:23 Sumit Thomason XR CHEST 1 VW PORTABLE 2024-05-13 09:52:00 Oanh Fishman POC GLUCOSE 2024-05-13 07:54:00 Jamar Soto POC GLUCOSE 2024-05-13 04:10:00 Jamar Soto VENOUS BLOOD GAS 2024-05-13 04:00:00 [place] MAGNESIUM LEVEL 2024-05-13 03:59:00 Spencer Zelaya BASIC METABOLIC PANEL 2024-05-13 03:59:00 Spencer Zelaya CBC WITH PLATELET AND DIFFERENTIAL 2024-05-13 03:59:00 Oanh Fishman PHOSPHORUS LEVEL 2024-05-13 03:59:00 Azul Cota MANUAL DIFFERENTIAL 2024-05-13 03:59:00 Jamar Soto ESTIMATED GFR 2024-05-13 03:59:00 Jamar Soto POC GLUCOSE 2024-05-13 00:01:00 Jamar Soto POC GLUCOSE 2024-05-12 20:10:00 Jamar Soto POC GLUCOSE 2024-05-12 17:36:00 Jamar Soto METHICILLIN-RESISTANT STAPHYLOCOCCUS AUREUS (MRSA), SYLVIA 2024-05-12 14:05:00 Azul Cota URINALYSIS, AUTOMATED WITH MICROSCOPY 2024-05-12 13:52:00 Sumit Thomason ANTINUCLEAR ANTIBODIES (PAT) WITH REFLEX TO TITER AND PATTERN, IMMUNOFLUORESCENCE 2024-05-12 13:50:00 Sumit Thomason FOLATE LEVEL 2024-05-12 13:50:00 Sumit Thomason VITAMIN B12 LEVEL 2024-05-12 13:50:00 Sumit Thomason C-REACTIVE PROTEIN 2024-05-12 13:50:00 Sumit Thomason SEDIMENTATION RATE 2024-05-12 13:50:00 Sumit Thomason RHEUMATOID FACTOR 2024-05-12 13:50:00 Sumit Thomason THYROID STIMULATING HORMONE 2024-05-12 13:50:00 Sumit Thomason T4, FREE 2024-05-12 13:50:00 Sumit Thomason VITAMIN D 25 HYDROXY LEVEL 2024-05-12 13:50:00 Sumit Thomason POC GLUCOSE 2024-05-12 13:29:[address] ANGIOGRAM PE CHEST 2024-05-12 11:03:[address] ABDOMEN PELVIS W CONTRAST 2024-05-12 10:52:07 Azul Cota XR CHEST 1 VW PORTABLE 2024-05-12 09:30:17 Azul Cota LIPASE LEVEL 2024-05-12 08:40:00 Azul Cota AMYLASE LEVEL 2024-05-12 08:40:00 Azul Cota ARTERIAL BLOOD GAS 2024-05-12 08:27:00 Azul Cota POC GLUCOSE 2024-05-12 08:26:00 Jamar Soto BLOOD CULTURE, AEROBIC & ANAEROBIC 2024-05-12 06:10:00 Ivy Temple MAGNESIUM LEVEL 2024-05-12 03:45:00 Spencer Zelaya PHOSPHORUS LEVEL 2024-05-12 03:45:00 Spencer Zelaya BASIC METABOLIC PANEL 2024-05-12 03:45:00 Spencer Zelaya CBC WITH PLATELET AND DIFFERENTIAL 2024-05-12 03:45:00 Oanh Fishman MANUAL DIFFERENTIAL 2024-05-12 03:45:00 Jamar Soto ESTIMATED GFR 2024-05-12 03:45:00 Jamar Soto LIPASE LEVEL 2024-05-12 03:45:00 Jamar Soto POC GLUCOSE 2024-05-11 20:22:00 Jamar Soto BLOOD CULTURE, AEROBIC & ANAEROBIC 2024-05-11 17:36:00 Oanh Fishman C-REACTIVE PROTEIN 2024-05-11 17:36:00 Oanh Fishman PROCALCITONIN 2024-05-11 17:36:00 Oanh Fishman RESPIRATORY PATHOGEN PANEL WITH COVID-19 RT-PCR 2024-05-11 17:21:00 Oanh Fishman URINE CULTURE 2024-05-11 17:20:00 Jamra Soto URINALYSIS SCREEN AND MICROSCOPY, WITH REFLEX TO CULTURE 2024-05-11 17:20:00 Oanh Fishman POC GLUCOSE 2024-05-11 16:32:[address] ANGIOGRAM NECK W WO CONTRAST 2024-05-11 16:23:[address] ANGIOGRAM HEAD W WO CONTRAST 2024-05-11 16:22:49 Ivy Temple CBC WITH PLATELET AND DIFFERENTIAL 2024-05-11 14:42:00 Oanh Fishman POC GLUCOSE 2024-05-11 11:56:[address] HEAD WO CONTRAST 2024-05-11 11:00:00 Ivy Temple VENOUS BLOOD GAS 2024-05-11 09:35:00 Maria Teresa Hargrove Emil Beal POC GLUCOSE 2024-05-11 08:06:00 Jamar Soto MAGNESIUM LEVEL 2024-05-11 05:25:00 Spencer Zelaya PHOSPHORUS LEVEL 2024-05-11 05:25:00 Spencer Zelaya BASIC METABOLIC PANEL 2024-05-11 05:25:00 Spencer Zelaya HEMOGLOBIN 2024-05-11 05:25:00 Spencer Zelaya ESTIMATED GFR 2024-05-11 05:25:00 Jamar Soto POC GLUCOSE 2024-05-10 20:46:00 Jamar Soto BASIC METABOLIC PANEL 2024-05-10 18:34:00 Jamar Soto ESTIMATED GFR 2024-05-10 18:34:00 Jamar Soto [facility] POC GLUCOSE 2024-05-10 18:31:00 Jamar Soto SURGICAL PATHOLOGY REQUEST 2024-05-10 12:49:00 Jamar Soto POTASSIUM LEVEL 2024-05-10 12:17:00 Иван Sim MAGNESIUM LEVEL 2024-05-10 12:17:00 Иван Sim POC GLUCOSE 2024-05-10 11:22:00 Jamar Soto [place] > 1 HOUR 2024-05-10 10:45:00 Surinder Torre LACTIC ACID, SYRINGE 2024-05-10 09:45:00 Jamar Soto MAGNESIUM LEVEL 2024-05-10 09:45:00 Hassanain, Jamar [facility] GLUCOSE LEVEL, SYRINGE 2024-05-10 09:45:00 Hassanain, Jamar [facility] IONIZED CALCIUM, ARTERIAL 2024-05-10 09:45:00 Hassanain, Josechen Imtiaz [facility] HEMOGLOBIN, SYRINGE 2024-05-10 09:45:00 Hassanain, Jamar [facility] POTASSIUM, SYRINGE 2024-05-10 09:45:00 Hassanain, Jamar Imtiaz [facility] SODIUM LEVEL, SYRINGE 2024-05-10 09:45:00 Hassanain, Jamar [facility] ARTERIAL BLOOD GAS, CORRECTED 2024-05-10 09:45:00 Hassanain, Jamar [facility] [employer] MAGNESIUM LEVEL 2024-05-10 08:40:00 Hassanain, Jamar [facility] [employer] GLUCOSE LEVEL, SYRINGE 2024-05-10 08:40:00 Hassanain, Jamar [facility] IONIZED CALCIUM, ARTERIAL 2024-05-10 08:40:00 Hassanain, Jamar Imtiaz [facility] HEMOGLOBIN, SYRINGE 2024-05-10 08:40:00 Hassanain, Jamar [facility] POTASSIUM, SYRINGE 2024-05-10 08:40:00 Hassanain, Jamar [facility] [employer] SODIUM LEVEL, SYRINGE 2024-05-10 08:40:00 HassanainJamar Church ARTERIAL BLOOD GAS, CORRECTED 2024-05-10 08:40:00 Hassanain, Jamar [facility] LACTIC ACID, SYRINGE 2024-05-10 08:40:00 HassanainJamar [facility] ARTERIAL LINE 2024-05-10 08:06:41 Amado Peck [place] AN ELECTIVE ENDOTRACHEAL AIRWAY 2024-05-10 07:20:00 Amado Peck FUSION,ANTERIOR AND LATERAL APPROACHES,LUMBAR 2024-05-10 07:10:00 Surinder Torre POC GLUCOSE 2024-05-10 05:36:00 Jamar Soto CBC WITH PLATELET AND DIFFERENTIAL 2024-05-10 00:47:00 Maylin Aleman TYPE AND SCREEN 2024-05-10 00:46:00 Surinder Torre BASIC METABOLIC PANEL 2024-05-10 00:46:00 Liliana Gunderson MAGNESIUM LEVEL 2024-05-10 00:46:00 Spencer Zelaya PHOSPHORUS LEVEL 2024-05-10 00:46:00 Spencer Zelaya ESTIMATED GFR 2024-05-10 00:46:00 Liliana Gunderson POC GLUCOSE 2024-05-10 00:27:00 Jamar Soto LACTIC ACID LEVEL - NOW AND REPEAT 2X EVERY 3 HOURS 2024-05-09 17:17:[address] LUMBAR SPINE WO CONTRAST 2024-05-09 11:48:19 Luisa de Olivares, Forest Beal CBC WITH PLATELET AND DIFFERENTIAL 2024-05-09 10:48:00 Luisa de Forest Olivares PROTHROMBIN TIME WITH INR 2024-05-09 10:48:00 Luisa de Forest Olivares PARTIAL THROMBOPLASTIN TIME (PTT) 2024-05-09 10:48:00 Luisa de Forest Olivares SEDIMENTATION RATE 2024-05-09 10:48:00 Luisa de Olivares, Forest Beal COMPREHENSIVE METABOLIC PANEL 2024-05-09 10:48:00 Luisa de Olivares, Forest Beal PHOSPHORUS LEVEL 2024-05-09 10:48:00 Luisa de Olivares, Forest Beal MAGNESIUM LEVEL 2024-05-09 10:48:00 Luisa de Olviares, Forest Beal LACTIC ACID LEVEL - NOW AND REPEAT 2X EVERY 3 HOURS 2024-05-09 10:48:00 Spencer Zelaya C-REACTIVE PROTEIN 2024-05-09 10:48:00 Luisa de Olivares, Forest Beal ESTIMATED GFR 2024-05-09 10:48:00 Lars Humphries HEMOGLOBIN A1C 2024-04-21 15:03:00 Jalyn, Liliana Beal COMPREHENSIVE METABOLIC PANEL 2024-04-21 15:03:00 Liliana Gunderson CBC WITH PLATELET AND DIFFERENTIAL 2024-04-21 15:03:00 Liliana Gunderson PROTHROMBIN TIME WITH INR 2024-04-21 15:03:00 Liliana Gunderson PARTIAL THROMBOPLASTIN TIME (PTT) 2024-04-21 15:03:00 Liliana Gunderson TYPE AND SCREEN 2024-04-21 15:03:00 Liliana Gunderson ESTIMATED GFR 2024-04-21 15:03:00 Liliana Gunderson XR FOOT 3+ VW LEFT 2024-04-21 09:46:20 David Albarran NICOTINE AND COTININE, SERUM 2024-04-15 09:46:00 Surinder Torre NICOTINE SCREEN, URINE 2024-04-15 09:46:00 Surinder Torre MRI LUMBAR SPINE WO CONTRAST 2024-03-30 13:03:38 Surinder Torre BONE DENSITY 2024-03-08 11:15:52 Surinder Torre BONE DENSITY PERIPHERAL 2024-03-08 11:15:52 Surinder Torre XR LUMBAR SPINE COMPLETE W BENDING 2024-03-08 10:58:00 Surinder Torre XR SPINE SCOLIOSIS 2-3 VIEWS 2024-03-08 10:47:00 Surinder Torre POC GLUCOSE 2024-03-04 09:05:00 David Albarran FUSION, JOINT, MTP 2024-03-04 07:29:00 David Albarran POC PANEL 2024-03-04 06:49:00 David Albarran PARTIAL THROMBOPLASTIN TIME (PTT) 2024-03-01 09:36:00 Liliana Gunderson PROTHROMBIN TIME WITH INR 2024-03-01 09:36:00 Liliana Gunderson COMPREHENSIVE METABOLIC PANEL 2024-03-01 09:36:00 Liliana Gundersoncalvin [facility] CBC HEMOGRAM 2024-03-01 09:36:00 Liliana Gundersoncalvin Beal ESTIMATED GFR 2024-03-01 09:36:00 Liliana Gundersoncalvin [facility] XR CERVICAL SPINE 2 OR 3 VW 2024-02-18 10:38:08 Surinder Torre XR FOOT 3+ VW LEFT 2024-02-18 08:54:46 David Albarran Church POC GLUCOSE 2023-12-27 07:36:00 Arora, Abdirahman [facility] CBC WITH PLATELET AND DIFFERENTIAL 2023-12-27 05:37:00 Surinder Torre COMPREHENSIVE METABOLIC PANEL 2023-12-27 05:37:00 Surinder Torre ESTIMATED GFR 2023-12-27 05:37:00 Surinder Torre Church POC GLUCOSE 2023-12-26 20:26:00 Arora, Abdirahman [facility] POC GLUCOSE 2023-12-26 17:47:00 Arora, Abdirahman [facility] POC GLUCOSE 2023-12-26 12:11:00 Arora, Abdirahman [facility] POC GLUCOSE 2023-12-26 08:11:00 Arora, Abdirahman [facility] CBC WITH PLATELET AND DIFFERENTIAL 2023-12-26 04:08:00 Surinder Torre Church COMPREHENSIVE METABOLIC PANEL 2023-12-26 04:08:00 Surinder Torre ESTIMATED GFR 2023-12-26 04:08:00 Surinder Torre Church POC GLUCOSE 2023-12-25 20:56:00 Arora, Abdirahman [facility] POC GLUCOSE 2023-12-25 17:36:00 Arora, Abdirahman [facility] SURGICAL PATHOLOGY REQUEST 2023-12-25 15:02:00 Arora, Abdirahman [facility] POC GLUCOSE 2023-12-25 14:19:00 Arora, Abdirahman [facility] XR CERVICAL SPINE 1 VW 2023-12-25 13:45:00 Surinder Torre XR CERVICAL SPINE 1 VW 2023-12-25 13:35:00 Surinder Torre XR CERVICAL SPINE 1 VW 2023-12-25 12:00:01 Surinder Torre ARTERIAL LINE 2023-12-25 11:53:14 Richardson Smart [place] AN ELECTIVE ENDOTRACHEAL AIRWAY 2023-12-25 11:19:00 Richardson Smart DISCECTOMY, CERVICAL, WITH FUSION, ANTERIOR APPROACH 2023-12-25 11:10:00 Surinder Torre POC GLUCOSE 2023-12-25 08:01:00 AroraAbdirahman hanks CBC WITH PLATELET AND DIFFERENTIAL 2023-12-25 04:57:00 Surinder Torre COMPREHENSIVE METABOLIC PANEL 2023-12-25 04:57:00 Surinder Torre ESTIMATED GFR 2023-12-25 04:57:00 AroraAbdirahman hanks POC GLUCOSE 2023-12-24 21:43:00 AroraAbdirahman hanks POC GLUCOSE 2023-12-24 11:49:00 AroraAbdirahman hanks ECG 12-LEAD 2023-12-24 11:15:35 Thierry Fofana POC GLUCOSE 2023-12-24 07:59:00 AroraAbdirahman PROTHROMBIN TIME WITH INR 2023-12-24 07:51:00 Demand, Pilar Beal PARTIAL THROMBOPLASTIN TIME (PTT) 2023-12-24 07:51:00 Demand, Pilar Beal TYPE AND SCREEN 2023-12-24 07:51:00 Demand, Pilar Beal PHOSPHORUS LEVEL 2023-12-24 05:46:00 RadheathernThierry MAGNESIUM LEVEL 2023-12-24 05:46:00 RadheathernThierry THYROID STIMULATING HORMONE 2023-12-24 05:46:00 RadThierry guardado LIPID PANEL 2023-12-24 05:46:00 Thierry Fofana HEMOGLOBIN A1C 2023-12-24 05:46:00 Thierry Fofana CBC WITH PLATELET AND DIFFERENTIAL 2023-12-24 05:46:00 Thierry Fofana BASIC METABOLIC PANEL 2023-12-24 05:46:00 Thierry Fofana VITAMIN D 25 HYDROXY LEVEL 2023-12-24 05:46:00 Thierry Foafna ESTIMATED GFR 2023-12-24 05:46:00 Thierry Fofana POC GLUCOSE 2023-12-23 22:33:[address] CERVICAL SPINE WO CONTRAST 2023-12-23 15:40:22 Basim Brigth MRI CERVICAL SPINE WO CONTRAST 2023-12-23 12:00:00 Shekhar Lea CBC WITH PLATELET AND DIFFERENTIAL 2023-12-23 10:44:00 Shekhar Lea BASIC METABOLIC PANEL 2023-12-23 10:44:00 Shekhar Lea ESTIMATED GFR 2023-12-23 10:44:00 Shekhar Lea [place] CRITICAL CARE ILL/INJURED PATIENT INIT 30-74 MIN 2023-12-23 10:05:41 Shekhar Lea US ABDOMINAL WITH LIVER ELASTOGRAPHY 2023-12-02 14:50:00 Johanny Fried XR CERVICAL SPINE 2 OR 3 VW 2023-12-02 12:06:00 Rolanda Palma 5'NUCLEOTIDASE 2023-11-25 10:00:00 Johanny Fried ALKALINE PHOSPHATASE ISOENZYMES 2023-11-25 10:00:00 Johanny Fried PROTHROMBIN TIME WITH INR 2023-11-25 10:00:00 Johanny Fried COMPREHENSIVE METABOLIC PANEL 2023-11-25 10:00:00 Johanny Fried CBC WITH PLATELET AND DIFFERENTIAL 2023-11-25 10:00:00 Johanny Fried ESTIMATED GFR 2023-11-25 10:00:00 Johanny Fried CBC WITH PLATELET AND DIFFERENTIAL 2023-11-13 08:07:00 Johanny Fried COMPREHENSIVE METABOLIC PANEL 2023-11-13 08:07:00 Johanny Fried GGT 2023-11-13 08:07:00 Johanny Fried PROTHROMBIN TIME WITH INR 2023-11-13 08:07:00 Johanny Fried IMMUNOGLOBULIN G, A, M 2023-11-13 08:07:00 Johanny Fried ANTINUCLEAR ANTIBODIES (PAT) WITH REFLEX TO TITER AND PATTERN, IMMUNOFLUORESCENCE 2023-11-13 08:07:00 Johanny Fried ANTI-MITOCHONDRIAL ANTIBODIES (AMA), IMMUNOFLUORESCENCE 2023-11-13 08:07:00 Johanny Fried SMOOTH MUSCLE ANTIBODIES, IMMUNOASSAY 2023-11-13 08:07:00 Johanny Fried NM BONE SCAN WHOLE BODY 2023-10-16 13:13:00 Sera Montana BONE SPECIFIC ALK PHOSPHATASE 2023-09-14 10:13:00 Sera Montana CELIAC DISEASE SCREEN WITH REFLEXES 2023-09-14 10:13:00 Sera Montana PHOSPHORUS LEVEL 2023-09-14 10:13:00 Sera Montana PROTEIN ELECTROPHORESIS REFLEX RUFINO 2023-09-14 10:13:00 Sera Montana PARATHYROID HORMONE (PTH) AND CALCIUM 2023-09-14 10:13:00 Sera Montana VITAMIN D 25 HYDROXY LEVEL 2023-09-14 10:13:00 Sera Montana GGT 2023-09-14 10:13:00 Sera Montana ESTRADIOL LEVEL 2023-09-14 10:13:00 Sera Montana URINE CULTURE 2023-08-26 10:15:00 Lora Arguelles URINALYSIS SCREEN AND MICROSCOPY, WITH REFLEX TO CULTURE 2023-08-26 10:15:00 Lora Arguelles ECG PRE/POST OP 2023-08-26 10:11:18 Lora Arguelles CBC WITH PLATELET AND DIFFERENTIAL 2023-08-26 10:07:00 Lora Arguelles COMPREHENSIVE METABOLIC PANEL 2023-08-26 10:07:00 Lora Arguelles PARTIAL THROMBOPLASTIN TIME (PTT) 2023-08-26 10:07:00 Lora Arguelles PROTHROMBIN TIME WITH INR 2023-08-26 10:07:00 Lora Arguelles HEMOGLOBIN A1C 2023-08-26 10:07:00 Lora Arguelles TYPE AND SCREEN 2023-08-26 10:07:00 Lora Arguelles ESTIMATED GFR 2023-08-26 10:07:00 Lora Arguelles MRI, foot, w/o contrast 2023-04-24 00:00:00 [facility] Sesamoidectomy of First Toe 2023-02-05 00:00:00 [facility] BONE DENSITY PERIPHERAL 2023-01-06 15:53:17 [facility] BONE DENSITY 2023-01-06 15:53:17 [facility] XR SPINE SCOLIOSIS 2-3 VIEWS 2023-01-06 14:25:00 [facility] XR CERVICAL SPINE COMPLETE W FLEX EXT 2023-01-06 14:20:00 [facility] MRI CERVICAL SPINE WO CONTRAST 2023-01-06 13:48:11 [facility] MRI SPINE EXTERNAL STUDY 2022-11-10 14:09:00 [facility] HIP RIGHT 2022-06-16 16:29:52 Love Le - External LUMBAR SPINE 2 VIEWS 2022-06-16 16:28:40 Love Le [place] - External XR, knee, 3 view 2022-02-26 00:00:00 [facility] XR, knee, 4 or more view 2022-01-09 00:00:00 [facility] XR KNEE 3 VW RIGHT 2021-03-05 21:29:43 Damian Oropeza [facility] Back Surgery [facility] Caesarean Section [facility] Knee Replacement [facility] Knee Surgery [facility] K[facility] Arthroscopy/surgery [facility] Dilation and Curettage [facility] Plan of Care Planned Activity Planned Date Details Comments Source Future Scheduled Test 2023-04-23 11:40:18 Screening for malignant neoplasm of colon (procedure) [code = 938301388] [facility] Future Scheduled Test 2023-04-23 11:40:18 Screening for malignant neoplasm of colon (procedure) [code = 003359995] [facility] Future Scheduled Test 2023-04-23 11:40:18 COVID-19 VACCINE (#1) [code = COVID-19 VACCINE (#1)] [facility] Scheduled Test 2023-04-23 11:40:18 Pneumococcal Vaccine: Pediatrics (0 to 5 Years) and At-Risk Patients (6 to 64 Years) (1 - PCV) [code = Pneumococcal Vaccine: Pediatrics (0 to 5 Years) and At-Risk Patients (6 to 64 Years) (1 - PCV)] [facility] Future Scheduled Test 2023-04-23 11:40:18 Hepatitis C screening (procedure) [code = 946216408] [facility] Future Scheduled Test 2023-04-23 11:40:18 Screening for malignant neoplasm of cervix (procedure) [code = 899346177] [facility] Future Scheduled Test 2023-04-23 11:40:18 Screening for malignant neoplasm of colon (procedure) [code = 361292522] [facility] Scheduled Test 2023-04-23 11:40:18 SHINGLES VACCINES (1 of 2) [code = SHINGLES VACCINES (1 of 2)] [facility] Future Scheduled Test 2023-04-23 11:40:18 Screening for malignant neoplasm of colon (procedure) [code = 393963646] [facility] Future Scheduled Test 2023-04-23 11:40:18 Screening for malignant neoplasm of colon (procedure) [code = 192586552] [facility] Future Scheduled Test 2023-04-23 11:40:18 INFLUENZA VACCINE (#1) [code = INFLUENZA VACCINE (#1)] [facility] Future Scheduled Test 2023-04-23 11:40:18 BREAST CANCER SCREENING [code = BREAST CANCER SCREENING] [facility] Future Scheduled Test 2023-01-22 09:05:07 Screening for malignant neoplasm of colon (procedure) [code = 367440058] [facility] Future Scheduled Test 2023-01-22 09:05:07 Screening for malignant neoplasm of colon (procedure) [code = 955827952] [facility] Future Scheduled Test 2023-01-22 09:05:07 COVID-19 VACCINE (#1) [code = COVID-19 VACCINE (#1)] [facility] Scheduled Test 2023-01-22 09:05:07 Pneumococcal Vaccine: Pediatrics (0 to 5 Years) and At-Risk Patients (6 to 64 Years) (1 - PCV) [code = Pneumococcal Vaccine: Pediatrics (0 to 5 Years) and At-Risk Patients (6 to 64 Years) (1 - PCV)] [facility] Future Scheduled Test 2023-01-22 09:05:07 Hepatitis C screening (procedure) [code = 965088224] [facility] Scheduled Test 2023-01-22 09:05:07 Screening for malignant neoplasm of cervix (procedure) [code = 388229907] [facility] Future Scheduled Test 2023-01-22 09:05:07 Screening for malignant neoplasm of colon (procedure) [code = 228842479] [facility] Future Scheduled Test 2023-01-22 09:05:07 SHINGLES VACCINES (1 of 2) [code = SHINGLES VACCINES (1 of 2)] [facility] Future Scheduled Test 2023-01-22 09:05:07 Screening for malignant neoplasm of colon (procedure) [code = 211853322] [facility] Future Scheduled Test 2023-01-22 09:05:07 Screening for malignant neoplasm of colon (procedure) [code = 127174392] [facility] Future Scheduled Test 2023-01-22 09:05:07 INFLUENZA VACCINE (#1) [code = INFLUENZA VACCINE (#1)] [facility] Future Scheduled Test 2023-01-22 09:05:07 BREAST CANCER SCREENING [code = BREAST CANCER SCREENING] [facility] Future Scheduled Test 2023-01-05 06:37:03 Screening for malignant neoplasm of colon (procedure) [code = 228516358] [facility] Future Scheduled Test 2023-01-05 06:37:03 Screening for malignant neoplasm of colon (procedure) [code = 403655848] [facility] Future Scheduled Test 2023-01-05 06:37:03 COVID-19 VACCINE (#1) [code = COVID-19 VACCINE (#1)] [facility] Future Scheduled Test 2023-01-05 06:37:03 Pneumococcal Vaccine: Pediatrics (0 to 5 Years) and At-Risk Patients (6 to 64 Years) (1 - PCV) [code = Pneumococcal Vaccine: Pediatrics (0 to 5 Years) and At-Risk Patients (6 to 64 Years) (1 - PCV)] [facility] Future Scheduled Test 2023-01-05 06:37:03 Hepatitis C screening (procedure) [code = 490868112] [facility] Future Scheduled Test 2023-01-05 06:37:03 Screening for malignant neoplasm of cervix (procedure) [code = 066376795] [facility] Scheduled Test 2023-01-05 06:37:03 Screening for malignant neoplasm of colon (procedure) [code = 048387566] [facility] Future Scheduled Test 2023-01-05 06:37:03 SHINGLES VACCINES (1 of 2) [code = SHINGLES VACCINES (1 of 2)] [facility] Future Scheduled Test 2023-01-05 06:37:03 Screening for malignant neoplasm of colon (procedure) [code = 611887211] [facility] Future Scheduled Test 2023-01-05 06:37:03 Screening for malignant neoplasm of colon (procedure) [code = 143835875] [facility] Future Scheduled Test 2023-01-05 06:37:03 INFLUENZA VACCINE [code = INFLUENZA VACCINE] [facility] Future Scheduled Test 2023-01-05 06:37:03 BREAST CANCER SCREENING [code = BREAST CANCER SCREENING] [facility] Encounters Start Date/Time End Date/Time Encounter Type Admission Type Attending Clinicians Care Facility Care Department Encounter ID Source 2021-03-18 09:53:49 Emergency [facility] [id number] [facility] 2019-08-02 10:00:00 Inpatient Chuy Arcos [facility] [id number] [facility] 2024-06-17 15:45:00 2024-06-17 15:45:00 Outpatient JESICA GHOSH [id number] Antonia Johnson 2024-06-10 10:15:00 2024-06-10 10:15:00 Outpatient JESICA GHOSH [facility] H[facility] [id number] [facility] 2024-05-09 00:00:00 2024-05-24 00:00:00 Inpatient OPAL RAE [facility] [id number] [facility] 2024-04-21 00:00:00 2024-04-21 00:00:00 Outpatient DAVID ALBARRAN [facility] [id number] [facility] 2024-04-21 00:00:00 2024-04-21 00:00:00 Outpatient DAVID ALBARRAN [facility] [id number] [facility] 2024-04-21 00:00:00 2024-04-21 00:00:00 Outpatient SURINDER TORRE [facility] [id number] [facility] 2024-04-08 09:30:00 2024-04-08 09:30:00 Outpatient JESICA GHOSH ANTONIA HANCOCK [id number] [facility] 2024-04-07 00:00:00 2024-04-07 00:00:00 Outpatient RUBÉNSERA [facility] [id number] [facility] 2024-03-31 00:00:00 2024-03-31 00:00:00 Outpatient SURINDER TORRE [facility] [id number] [facility] 2024-03-30 00:00:00 2024-03-30 00:00:00 Outpatient SURINDER TORRE [facility] [id number] [facility] 2024-03-29 00:00:00 2024-03-29 00:00:00 Outpatient IOANAJESICA MEJIA [id number] [facility] 2024-03-28 00:00:00 2024-03-28 00:00:00 Outpatient CHESTER RODGERS [id number] [facility] 2024-03-27 00:00:00 2024-03-27 00:00:00 Outpatient CHESTER RODGERS [id number] [facility] 2024-03-24 00:00:00 2024-03-24 00:00:00 Outpatient [facility] [id number] [facility] 2024-03-14 00:00:00 2024-03-14 00:00:00 Outpatient [facility] [id number] [facility] 2024-03-13 00:00:00 2024-03-13 00:00:00 Outpatient JESICA GHOSH [facility] [id number] [facility] 2024-03-08 00:00:00 2024-03-08 00:00:00 Outpatient SURINDER TORRE [facility] [id number] [facility] 2024-03-08 00:00:00 2024-03-08 00:00:00 Outpatient SURINDER TORRE [facility] [id number] [facility] 2024-03-08 00:00:00 2024-03-08 00:00:00 Outpatient SURINDER TORRE [facility] [id number] [facility] 2024-03-07 00:00:00 2024-03-07 00:00:00 Outpatient JESICA GHOSH ANTONIA [id number] [facility] 2024-03-07 00:00:00 2024-03-07 00:00:00 Outpatient SURINDER TORRE [facility] [id number] [facility] 2024-03-04 00:00:00 2024-03-04 00:00:00 Outpatient DAVID ALBARRAN [facility] [id number] [facility] 2024-03-01 00:00:00 2024-03-01 00:00:00 Outpatient DAVID ALBARRAN [facility] [id number] [facility] 2024-02-18 00:00:00 2024-02-18 00:00:00 Outpatient DAVID ALBARRAN [facility] [id number] [place] [facility] 2024-02-18 00:00:00 2024-02-18 00:00:00 Outpatient DAVID ALBARRAN [facility] [id number] [facility] 2024-02-18 00:00:00 2024-02-18 00:00:00 Outpatient SURINDER TORRE [facility] [id number] [facility] 2024-02-15 08:30:00 2024-02-15 08:30:00 Outpatient DEACON QUIROZ ANTONIA HANCOCK [id number] [facility] 2024-02-08 11:00:00 2024-02-08 11:00:00 Outpatient PATRICK TI ANTONIA HANCOCK [id number] Anton[facility] 2024-02-03 00:00:00 2024-02-03 00:00:00 Outpatient JOHANNY FRIED [facility] [id number] [facility] 2024-01-28 10:30:00 2024-01-28 10:30:00 Outpatient TI NGUYEN ANTONIA HANCOCK [id number] [facility] 2024-01-15 15:30:00 2024-01-15 15:30:00 Outpatient SAJAN ANTONIA HANCOCK [id number] [facility] 2024-01-15 14:45:00 2024-01-15 14:45:00 Outpatient JESICA GHOSH ANTONIA HANCOCK [id number] [facility] 2024-01-08 00:00:00 2024-01-08 00:00:00 [facility] [id number] [facility] 2023-12-29 12:10:00 2023-12-29 12:10:00 Outpatient VISHAL CHESTER HANCOCK [id number] [facility] 2023-12-29 00:00:00 2023-12-29 00:00:00 Outpatient NHUNG ARCEO [id number] [facility] 2023-12-23 00:00:00 2023-12-27 00:00:00 Inpatient ARORA, ABDIRAHMAN [facility] [id number] [facility] 2023-12-23 00:00:00 2023-12-23 00:00:00 Branden Moseley, [place]: [address] [facility], [address], [place] [address] , Ph. [phone] [facility] [place] [facility] [place] - F[facility]_Ofc [facility] [id number] [facility] 2023-12-02 00:00:00 2023-12-02 00:00:00 Outpatient ROLANDA PALMA [facility] [id number] [facility] 2023-12-02 00:00:00 2023-12-02 00:00:00 Outpatient JOHANNY FRIED [facility] [id number] [facility] 2023-11-28 00:00:00 2023-11-28 00:00:00 Outpatient NHUNG ARCEO ANTONIA HANCOCK [id number] [facility] 2023-11-26 14:10:00 2023-11-26 14:10:00 Outpatient ANKITA ANTONIA HANCOCK [id number] [facility] 2023-11-26 00:00:00 2023-11-26 00:00:00 Outpatient NHUNG ARCEO ANTONIA HANCOCK [id number] [facility] 2023-11-25 00:00:00 2023-11-25 00:00:00 Outpatient JOHANNY FRIED [facility] [id number] [facility] 2023-11-25 00:00:00 2023-11-25 00:00:00 Outpatient JOHANNY FRIED [facility] [id number] [facility] 2023-11-05 00:00:00 2023-11-05 00:00:00 Outpatient TORRE, SURINDER [facility] [id number] [facility] 2023-10-23 00:00:00 2023-10-23 00:00:00 [facility]patient [facility] [facility] [id number] [facility] 2023-10-16 00:00:00 2023-10-16 00:00:00 Outpatient SERA MONTANA [facility] [id number] [facility] 2023-10-16 00:00:00 2023-10-16 00:00:00 Outpatient SERA [facility] [id number] [facility] 2023-10-08 00:00:00 2023-10-08 00:00:00 Outpatient SERA [facility] [id number] [facility] 2023-09-14 00:00:00 2023-09-14 00:00:00 Outpatient SERA [facility] [id number] [facility] 2023-09-02 00:00:00 2023-09-02 00:00:00 Outpatient LIBBY ARCEOElio HANCOCK [id number] [facility] 2023-08-26 00:00:00 2023-08-26 00:00:00 Outpatient SURINDER TORRE [facility] [id number] [facility] 2023-08-18 00:00:00 2023-08-18 00:00:00 Outpatient AHMET PATEL [id number] [facility] 2023-08-03 00:00:00 2023-08-03 00:00:00 Outpatient SURINDER TORRE [facility] [id number] [facility] 2023-07-29 00:00:00 2023-07-29 00:00:00 Outpatient ADIS NHUNG HANCOCK [id number] [facility] 2023-06-29 00:00:00 2023-06-29 00:00:00 Outpatient ADIS NHUNG HANCOCK [id number] [facility] 2023-05-22 00:00:00 2023-05-22 00:00:00 Outpatient ADIS NHUNG HANCOCK [id number] [facility] 2023-05-21 09:00:00 2023-05-21 09:00:00 Outpatient [facility] [id number] [facility] 10:30:00 2023-05-20 10:30:00 Outpatient [facility]HMET PATEL [id number] [facility] 2023-05-08 00:00:00 2023-05-08 00:00:00 Outpatient Lan Ndiaye AOSM AOSM [id number] [facility] 2023-05-06 20:15:00 2023-05-06 20:15:00 Outpatient JAMESON CASTILLO [id number] [facility] 2023-05-06 00:00:00 2023-05-06 00:00:00 Outpatient NEYNYDIA ANTONIA HANCOCK [id number] [facility] 2023-05-06 00:00:00 2023-05-06 00:00:00 Johanny العراقي MD: [address] [place] [address] , Ph. [phone] [place] [facility]Of[facility] [address] [id number] [facility] 2023-05-04 08:03:00 2023-05-04 08:03:00 Outpatient Johanny Sesay [facility] [id number] [facility] 2023-04-28 13:00:00 2023-04-28 13:00:00 Outpatient NAMRATA TORRES [id number] [facility] 2023-04-24 00:00:00 2023-04-24 00:00:00 Outpatient FOG_Braly_H camila_ [facility] [id number] [facility] 2023-04-24 00:00:00 2023-04-24 00:00:00 Johanny العراقي MD: [address] [place] [address] , Ph. [phone] [place] [facility] [address] [id number] [facility] 2023-04-10 15:30:00 2023-04-10 15:30:00 Outpatient AHMET PATEL [id number] [facility] 2023-04-06 00:00:00 2023-04-06 00:00:00 Johanny العراقي MD: [address] [place] [address] , Ph. [phone] [facility] [place] - [facility] [address] [id number] [facility] 2023-03-27 00:00:00 2023-03-27 00:00:00 Outpatient TISH LOPEZ [id number] [facility] 2023-03-26 11:00:00 2023-03-26 11:00:00 Outpatient TISH LOPEZ ANTONIA HANCOCK [id number] [facility]-23 00:00:00 2023-03-23 00:00:00 Outpatient LOVE LE ANTONIA HANCOCK [id number] [facility] 2023-03-23 00:00:00 2023-03-23 00:00:00 Outpatient NHUNG ARCEO [id number] [facility] 2023-03-20 15:45:00 2023-03-20 15:45:00 Outpatient AHMET PATEL ANTONIA HANCOCK [id number] [facility] 2023-03-13 00:00:00 2023-03-13 00:00:00 Outpatient NHUNG ARCEO [id number] [facility] 2023-03-09 00:00:00 2023-03-09 00:00:00 Johanny العراقي MD: [address] [place] [phone] , Ph. [phone] AOSM [place] [facility] [id number] [facility] 2023-03-06 00:00:00 2023-03-06 00:00:00 Outpatient NHUNG ARCEO [id number] [facility] 2023-02-27 00:00:00 2023-02-27 00:00:00 Outpatient FOG_Braly_H Senthil AOSM AOSM [id number] [facility] 2023-02-27 00:00:00 2023-02-27 00:00:00 Outpatient FOG_Braly_H camila_ AOSM AOSM [id number] [facility] 2023-02-27 00:00:00 2023-02-27 00:00:00 Outpatient FOG_Braly_H camila_ AOSM AOSM [id number] [facility] 2023-02-27 00:00:00 2023-02-27 00:00:00 Outpatient FOG_Braly_H camila_ AOSM AOSM [id number] [facility] 2023-02-27 00:00:00 2023-02-27 00:00:00 Outpatient FOG_Braly_H camila_ AOSM AOSM [id number] [facility] 2023-02-20 14:30:00 2023-02-20 14:30:00 Outpatient NHUNG ARCEO [id number] [facility] 2023-02-17 00:00:00 2023-02-17 00:00:00 Outpatient FOG_Braly_H camila_ AOSM AOSM [id number] [facility] 2023-02-16 00:00:00 2023-02-16 00:00:00 Outpatient FOG_Braly_H camila_ AOSM AOSM [id number] [facility] 2023-02-11 09:30:00 2023-02-11 09:30:00 Outpatient NHUNG ARCEO [id number] [facility] 2023-02-07 00:00:00 2023-02-07 00:00:00 Outpatient FOG_Braly_H camila_ AOSM AOSM [id number] [facility] 2023-02-07 00:00:00 2023-02-07 00:00:00 Outpatient FOG_Braly_H camila_ AOSM AOSM [id number] [facility] 2023-02-07 00:00:00 2023-02-07 00:00:00 Outpatient FOG_Braly_H camila_ AOSM AOSM [id number] [facility] 2023-02-07 00:00:00 2023-02-07 00:00:00 Outpatient NHUNG ARCEO [id number] [facility] 2023-02-05 06:32:00 2023-02-05 06:32:00 Outpatient Johanny Sesay [facility] [id number] [facility] 2023-02-04 14:00:00 2023-02-04 14:00:00 Outpatient DEACON QUIROZ ANTONIA HANCOCK [id number] [facility] 2023-02-04 00:00:00 2023-02-04 00:00:00 Outpatient IOANAJESICA MEJIA [id number] [facility] 2023-02-03 00:00:00 2023-02-03 00:00:00 Outpatient JESICA GHOSH [id number] [facility] 2023-01-25 00:00:00 2023-01-25 00:00:00 Outpatient JULIANNA EVANS [id number] [facility] 2023-01-20 00:00:00 2023-01-20 00:00:00 Outpatient NHUNG ARCEO [id number] [facility] 2023-01-14 00:00:00 2023-01-14 00:00:00 Outpatient JULIANNA EVANS [id number] [facility] 2023-01-13 00:00:00 2023-01-13 00:00:00 Outpatient NHUNG ARCEO [id number] [facility] 2023-01-11 00:00:00 2023-01-11 00:00:00 Outpatient JULIANNA EVANS [id number] [facility] 2023-01-07 09:20:00 2023-01-07 09:20:00 Outpatient SAJAN HANCOCK [id number] [facility] 2023-01-07 08:30:00 2023-01-07 08:30:00 Outpatient NHUNG ARCEO [id number] [facility] 2023-01-07 00:00:00 2023-01-07 00:00:00 Outpatient MIMA_Brasaleem_H camila_ AOSM AOSM [id number] [facility] 2023-01-06 09:25:47 2023-01-06 23:59:00 Hospital Encounter Surinder Torre 1.2.840.1 [id number] 3.430.2.7 .3.203920 .[id number] [facility] 2023-01-06 08:48:05 2023-01-06 09:24:00 Hospital Encounter Idania Arndt 1.2.840.1 [id number] 3.430.2.7 .3.156794 .8 [id number] [facility] 2023-01-06 08:36:54 2023-01-06 08:47:00 Hospital Encounter Surinder Torre 1.2.840.1 [id number] 3.430.2.7 .3.921328 .8 [id number] [facility] 2023-01-06 08:01:05 2023-01-06 08:35:00 Hospital Encounter Idania Arndt 1.2.840.1 [id number] 3.430.2.7 .3.431075 .8 [id number] [facility] 2023-01-05 11:37:00 2023-01-05 11:37:00 [id number] [facility] 2023-01-05 00:00:00 2023-01-05 00:00:00 Outpatient Lan Ndiaye AO AO [id number] [facility] 2023-01-02 00:00:00 2023-01-02 00:00:00 Orders Only Idania Arndt 1.2.840.1 17033.1.1 3.430.2.7 .3.143974 .8 [id number] [facility] 2022-12-29 14:15:10 2022-12-29 23:59:00 Hospital Encounter Surinder Torre 1.2.840.1 [id number] 3.430.2.7 .3.605766 .[id number] [facility] 2022-12-29 14:00:00 2022-12-29 14:09:14 Office Visit Surinder Torre 1.2.840.1 [id number] 3.430.2.7 .3.494563 .[id number] [facility] 2022-12-29 00:00:00 2022-12-29 00:00:00 Outpatient FOG_Braly_H camila_ AOSM AOSM [id number] [facility] 2022-12-29 00:00:00 2022-12-29 00:00:00 Outpatient FOG_Braly_H camila_ AOSM AOSM [id number] [facility] 2022-12-26 00:00:00 2022-12-26 00:00:00 Outpatient FOG_Braly_H camila_ AOSM AOSM [id number] [facility] 2022-12-23 00:00:00 2022-12-23 00:00:00 Outpatient LOVE LE [id number] [facility] 09:00:00 2022-12-22 09:00:00 Outpatient OLIVERIO DHILLON [id number] [facility] 2022-12-10 14:30:00 2022-12-10 14:30:00 Outpatient ANTONIA HANCOCK [id number] Antonia cristin 2022-12-10 13:00:00 2022-12-10 13:00:00 Outpatient ANTONIA HANCOCK [id number] Antonia Johnson 2022-12-10 10:20:00 2022-12-10 10:20:00 Outpatient PATRICK YANG [id number] [facility] Johnson 2022-12-09 10:30:00 2022-12-09 10:30:00 Outpatient NHUNG ARCEOSEY ANTONIA [id number] [facility] 2022-12-03 00:00:00 2022-12-03 00:00:00 Outpatient JESICA GHOSH ANTONIA HANCOCK [id number] Antonia Seybold 2022-12-03 00:00:00 2022-12-03 00:00:00 Outpatient JULIANNA EVANS [id number] Antonia Seybold 2022-12-01 00:00:00 2022-12-01 00:00:00 Outpatient LOVE LE ANTONIA HANCOCK [id number] [facility] 2022-12-01 00:00:00 2022-12-01 00:00:00 Outpatient YAMINI EVANSAN ANTONIA HANCOCK [id number] [facility] 2022-11-10 09:00:00 2022-11-10 09:00:00 Outpatient ANTONIA HANCOCK [id number] [facility] 2022-11-10 00:00:00 2022-11-10 00:00:00 Outpatient CRISTINAJULIANNA LANTIGUA ANTONIA HANCOCK [id number] [facility] 2022-11-04 00:00:00 2022-11-04 00:00:00 Outpatient JESICA GHOSH ANTONIA HANCOCK [id number] [facility] 2022-11-01 00:00:00 2022-11-01 00:00:00 Outpatient JULIANNA EVANS [id number] [facility] 2022-07-29 00:00:00 2022-07-29 00:00:00 Outpatient CRISTINA JULIANNA HANCOCK [id number] Antonia Seybold 2022-07-15 14:30:00 2022-07-15 14:30:00 Outpatient ANTONIA HANCOCK [id number] Antonia Seybold 2022-07-15 13:00:00 2022-07-15 13:00:00 Outpatient ANTONIA HANCOCK [id number] Antonia Seybanu 2022-07-03 09:00:00 2022-07-03 09:00:00 Outpatient ANTONIA HANCOCK [id number] Antonia Seybold 2022-07-03 08:55:00 2022-07-03 08:55:00 Outpatient ANTONIA HANCOCK [id number] Antonia ybanu 2022-07-03 00:00:00 2022-07-03 00:00:00 Outpatient JULIANNA EVANS [id number] Antonia ybanu 2022-06-27 14:50:00 2022-06-27 14:50:00 Outpatient NIR MARTINEZ [id number] [facility] 2022-06-27 14:30:00 2022-06-27 14:30:00 Outpatient TERRANCE GARCIA [id number] [facility] 2022-06-27 00:00:00 2022-06-27 00:00:00 Outpatient TERRANCE GARCIA [id number] [facility] 2022-06-27 00:00:00 2022-06-27 00:00:00 Outpatient JESICA GHOSH [id number] [facility] 2022-06-17 00:00:00 2022-06-17 00:00:00 Outpatient R RADIOLOGY [facility] [id number] [facility] 2022-06-17 00:00:00 2022-06-17 00:00:00 Outpatient JULIANNA EVANS [id number] [facility] 2022-06-16 10:00:00 2022-06-16 10:00:00 Outpatient ANTONIA HANCOCK [id number] [facility] 2022-06-16 09:55:00 2022-06-16 09:55:00 Outpatient ANTONIA HANCOCK [id number] [facility] 2022-06-16 09:15:00 2022-06-16 09:15:00 Outpatient LOVE LE [id number] Antonia Seybanu 2022-06-12 00:00:00 2022-06-12 00:00:00 Outpatient LOVE LE [id number] [facility] 2022-06-11 00:00:00 2022-06-11 00:00:00 Outpatient JULIANNA EVANS [id number] [facility] 2022-06-11 00:00:00 2022-06-11 00:00:00 Outpatient JULIANNA EVANS ANTONIA [id number] [facility] 2022-06-03 16:15:00 2022-06-03 16:15:00 Outpatient JULIANNA EVANSSEY [id number] [facility] 2022-06-03 00:00:00 2022-06-03 00:00:00 Outpatient JESICA GHOSH ANTONIA [id number] [facility] 2022-05-08 00:00:00 2022-05-08 00:00:00 Outpatient JESICA GHOSH ANTONIA HANCOCK [id number] [facility] 2022-04-28 11:30:00 2022-04-28 11:30:00 Outpatient JULIANNA EVANS ANTONIA ANTONIA [id number] [facility] 2022-04-09 00:00:00 2022-04-09 00:00:00 Outpatient FOG_Braly_H Senthil AOSM AO [id number] [facility] 2022-04-09 00:00:00 2022-04-09 00:00:00 Outpatient FOG_Megan_H Senthil AOSM AO [id number] [facility] 2022-04-09 00:00:00 2022-04-09 00:00:00 Outpatient FOG_Braly_H camila_ AOSM AOSM [id number] [facility] 2022-04-09 00:00:00 2022-04-09 00:00:00 Emil Guzman II, MD: [address] [place] [phone] , Ph. [phone] AOSM [place] [facility] [id number] [facility] 2022-04-04 00:00:00 2022-04-04 00:00:00 Outpatient FOG_Josely_H Senthil AOSM AOSM [id number] [facility] 2022-03-19 08:25:00 2022-03-19 08:25:00 Outpatient LENIN90 ANTONIA HANCOCK [id number] [facility] 2022-03-19 00:00:00 2022-03-19 00:00:00 Outpatient FOG_Braly_H camila_ AOSM AO [id number] [facility] 2022-03-17 10:30:00 2022-03-17 10:30:00 Outpatient JULIANNA EVANS [id number] [facility] 2022-03-14 00:00:00 2022-03-14 00:00:00 Outpatient JULIANNA EVANS [id number] [facility] 2022-02-26 00:00:00 2022-02-26 00:00:00 Outpatient FOG_Braly_H Senthil AOSM AO [id number] [facility] 2022-02-26 00:00:00 2022-02-26 00:00:00 Emil Guzman II, MD: [address] [place] [phone] , Ph. [phone] [place] [facility] [id number] [facility] 2022-02-24 00:00:00 2022-02-24 00:00:00 Outpatient FOG_Braly_H Senthil AOSM AO [id number] [facility] 2022-02-12 00:00:00 2022-02-12 00:00:00 Outpatient FOG_Braly_H Senthil AOSM AO [id number] [facility] 2022-02-06 00:00:00 2022-02-06 00:00:00 Outpatient FOG_Braly_H Senthil AOSM AO [id number] [facility] 2022-01-29 00:00:00 2022-01-29 00:00:00 Outpatient FOG_Brown_B Anisha AO AO [id number] [facility] 2022-01-29 00:00:00 2022-01-29 00:00:00 Outpatient Emil Guzman AOSM AOSM [id number] 2022-01-29 00:00:00 2022-01-29 00:00:00 Emil Guzman II MD: [address] [place] [phone] , Ph. [phone] [place] [facility] [id number] [facility] 2022-01-26 00:00:00 2022-01-26 00:00:00 Outpatient FOG_Brown_Joe [place] AO AO [id number] [facility] 2022-01-21 00:00:00 2022-01-21 00:00:00 Outpatient FOG_BrownGeovani [place] AO AO [id number] [facility] 2022-01-16 05:53:00 2022-01-17 15:05:00 Inpatient Emil Guzman [facility] SURG [id number] [facility] 2022-01-16 00:00:00 2022-01-16 00:00:00 Outpatient Emil Guzman AOSM AOSM [id number] 2022-01-16 00:00:00 2022-01-16 00:00:00 Emil Guzman II, MD: [address] [place] [phone] , Ph. [phone] [place] [facility] [id number] [facility] 2022-01-10 15:14:00 2022-01-10 15:14:00 Outpatient Emil Guzman [facility] [id number] [facility] 2022-01-08 00:00:00 2022-01-08 00:00:00 Out[facility] [id number] [facility] 2022-01-08 00:00:00 2022-01-08 00:00:00 Outpatient Emil Guzman AO AO [id number] 2022-01-08 00:00:00 2022-01-08 00:00:00 Ruddy Escalante MD: [address] [place] [address] , Ph. [phone] [place] [facility] [id number] [facility] 2021-12-09 10:00:00 2021-12-09 10:30:00 Office Visit Julianna Evans Shiner 1.2.840.114 350.1.13.13 1.2.7.2.686 [id number] [facility] 2021-12-09 10:00:00 2021-12-09 10:00:00 Outpatient JULIANNA EVANS [id number] [facility] 2021-09-29 00:00:00 2021-09-29 00:00:00 Outpatient JULIANNA EVANS [id number] [facility] 2021-09-24 15:30:00 2021-09-24 15:30:00 Outpatient LAB47 ANTONIA HANCOCK [id number] [facility] 2021-09-24 14:45:00 2021-09-24 15:15:00 Office Visit Lyndsay Jimenes 1.2.840.114 350.1.13.13 1.2.7.2.686 [id number] [facility] 2021-08-27 09:00:00 2021-08-27 09:00:00 Outpatient LAB90 ANTONIA HANCOCK [id number] [facility] 2021-08-27 00:00:00 2021-08-27 00:00:00 Outpatient JULIANNA EVANS ANTONIA [id number] [facility] 2021-08-27 00:00:00 2021-08-27 00:00:00 Outpatient JULIANNA EVANS ANTONIA [id number] [facility] 2021-08-26 00:00:00 2021-08-26 00:00:00 Outpatient MIMA_Raciel_Joe [place] AO AO [id number] [facility] 2021-08-22 10:30:00 2021-08-22 10:30:00 Outpatient LAB90 ANTONIA HANCOCK [id number] [facility] 2021-08-22 10:00:00 2021-08-22 10:00:00 Office Visit JULIANNA EVANS 1.2.840.114 350.1.13.13 1.2.7.2.686 [id number] [facility] 2021-07-07 00:00:00 2021-07-07 00:00:00 Outpatient JULIANNA EVANS ANTONIA HANCOCK [id number] [facility] 2021-04-23 05:19:00 2021-04-23 05:19:00 Outpatient JEFFREY Chuy Schrader [facility] [id number] [facility] 2021-04-15 17:07:00 2021-04-15 17:07:00 Outpatient Raciel Chuy HCACL LABO [id number] [facility] 2021-04-08 12:49:00 2021-04-08 12:49:00 Outpatient JEFFREY Schrader Chuy [facility]AT[facility] RADI [id number] [facility] 2021-03-20 12:15:00 2021-03-20 12:15:00 Outpatient LAB90 ANTONIA HANCOCK [id number] [facility] 2021-03-20 11:15:33 2021-03-20 11:45:33 Office Visit CristinaYamini lantiguaroni Johnson [facility] 1.2.840.114 350.1.13.13 1.2.7.2.686 [id number] Antonia Johnson 2021-03-20 11:15:33 2021-03-20 11:45:33 Office Visit Julianna Evans 1.2.840.114 350.1.13.13 1.2.7.2.686 [id number] 2021-03-05 16:23:38 2021-03-05 23:59:00 Hospital Encounter [facility] [facility] 1.2.840.114 350.1.13.10 4.2.7.2.686 [id number] [facility] 2021-03-05 15:36:04 2021-03-05 15:51:04 Office Visit [facility] 1.2840.114 350.1.13.10 4.2.7.2.686 [id number] [facility] 2021-03-05 15:45:00 2021-03-05 15:45:00 Outpatient R [facility] [id number] [facility] 2021-03-05 00:00:00 2021-03-05 00:00:00 Orders Only Doctor Unassigned, [facility] 1.2840.114 350.1.13.10 4.2.7.2.686 [id number] [facility] 2020-12-05 19:51:00 2020-12-05 21:09:00 Emergency Dangelo Parker [facility] 1.2840.114 350.1.13.10 4.2.7.2.686 [id number] [facility] 2020-11-27 09:45:00 2020-11-27 09:45:00 Outpatient LAB90 ANTONIA HANCOCK [id number] Anton[facility] Johnson 2020-11-27 09:15:00 2020-11-27 09:15:00 Outpatient JULIANNA EVANS [id number] [facility] Johnson 2020-03-08 00:00:00 2020-03-08 00:00:00 Outpatient SURINDER [facility]ORRE [facility] [id number] Emil Kruse 2019-06-04 10:15:00 2019-06-04 10:15:00 Outpatient Ruddy Escalante [facility] RADI [id number] [facility] Results Test Description Test Time Test Comments Results Result Co mments Source [place] MiguelitoistMiscellaneous referral [id number] 10:14:00* Test Item Value Reference Range Interpretation Comme nts Misc test name (test code = 2566) VDRL to [facility] [id number] VDRL to [facility] [id number] [facility] test result (test code = 1730) SEE COMMENT Treponema pallid um (VDRL), Cerebrospinal Fluid with Reflex to Titer [facility] test code [id number] T.Pallidum (VDRL) CSF Reflex Non Reactive (Ref Interval: Non Reactive) Because the VDRL was Non Reactive, the VDRL titer was not performed. VERIFIE D/REPORTED 05/16/2024 Test performed by:[facility] [place] [id number] SUSANNAH (test code = SUSANNAH) Emil BealOR [place] > I [id number] 21:14:09Fluoroscopic imaging requested. Radiologist was not present during the examination. Please see patikristopher izaguirre's chart for radiation dose and fluoro time. Separate report will be issued by the physician performing the procedure.Emil [place] [id number] 14:56:20Love Sepulveda MD 05/16/2024 3:02 PMCentral line Patient Location: ORStart Time: 05/16/2024 1:35 PMEnd Time: 05/16/2024 1:45 PM Performed by: anesthesia residentAnesthesiologist: Tara Huddleston MDResident/RUSSIAN RUBBER/AA: Love Sepulveda MDAuthorized by: Tara Huddleston MD Campus President Attestation: I was present and participated in the placement of the central line performed with the resident.Attesting provider: Tara Huddleston MD Preprocedure:patient identified, IV checked, site and side verified, risks and benefits discussed, procedure verified, surgical consent complete, patient position confirmed, monitors and equipment checked, pre-op evaluation complete and timeout performed prior to procedure MSBT: antiseptic used during central venous catheter insertion, all elements of maximal sterile barrier technique followed, hand hygiene performed prior to central venous catheter insertion, cap/gown used by other personnel during central venous catheter insertion, solutions labeled and all portsnot used during insertion clamped Indications: Indications: Vascular accessAnesthesia: Anesthesia: GeneralProcedure details: Patient position: Trendelenburg Catheter Type: Double lumen Catheter Size:8 Fr Catheter Site: internal jugular Catheter site laterality: Right Pre-procedure: Landmarks identi fied Ultrasound used to select the identified vessel: Yes Ultrasound image saved/added to patient's chart: No Needle and catheter guided into patent vessel using real-time visualization: Yes Relevant vasculature visualized: Yes Number of attempts: 1 Successful placement: Yes Guidewire removal: No one witnessed the removal of the guidewire and a STAT CXR was performed in OR immediately after central line placement to confirm proper removal of the guidewire Verifying Provider: Love Sepulveda MDPost-procedure: Post-procedure: line sutured, sterile dressing applied per protocol and ports flushedwith saline Post-procedure: Sterile caps on all hubs and blood cleaned with CHG Assessment: Blood return through all ports, no pneumothorax on x-ray, free fluid flow and placement verified by x-ray Patient tolerance: Patient tolerated the procedure well with no immediate complicationsNotes: Patientprepped and draped. Needle visualized inside of vessel under US guidance. Good blood return. Vesseldilated and catheter easily advanced. Wire removed. CXR completed intra-operatively to confirm placement. Catheter Tip Terminus: Clinical indicators suggest the tip resides in the SVC As validated by: [facility] Arterial [id number] 14:55:26Love Sepulveda MD 05/16/2024 2:56 PMArterial line Patient Location: ORStart Time: 05/16/2024 1:53 PMEnd Time: 05/16/2024 1:55 PM Performed by: anesthesia residentAnesthesiologist: Tara Huddleston MDResi dent/RUSSIAN RUBBER/AA: Love Sepulveda MDAuthorized by: Tara Huddleston MD Campus President Attestation: I was present and participated in the placement of the arterial line performed with the resident.Attesting provider: Tara Huddleston MD Pre-procedure: patient identified, IV checked, site and side verified, risks and benefits discussed, procedure verified, surgical consent complete, patient position confirmed, monitors and equipment checked, pre-op evaluation complete and timeout performed prior to procedure MSBT: antiseptic used, all elements of maximal sterile barrier technique followed, hand hygiene performed, cap/gown used by other personnel and solutions labeled Indications: Indications: hemody namic monitoring Anesthesia: Anesthesia: GeneralProcedure Details: Arterial Line placement: Placedpost induction Line placement site: RadialLine placement side: Right Arterial line gauge: 20 GNumber of attempts: 1 Ultrasound used to select the identified vessel: Yes Ultrasound image saved/added to patient's chart: No Needle and catheter guided into patent vessel using real-time visualization: Yes Relevant vasculature visualized: Yes Post-procedure: Post- procedure: Sterile dressing applied Post procedure circulation, sensation, movement: Normal Patient tolerance: Patient tolerated the procedure well with no immediate complications[place] EzetftgfaLmlwhp3523-86-24 13:22:00Love Sepuvleda MD 05/16/2024 2:55 PMAirway Date/Time: 05/16/2024 1:22 PM Location: OR Performed by: anesthesia residentAnesthesiologist: Tara Huddleston MDResident/FENG/AA: Love Sepulveda MDAuthorizedby: Tara Huddleston MD Campus President Attestation: I was present and participated in the placement of the airway performed with the resident.Attesting provider: Tara Huddleston MD Urgency: ElectiveDifficult Airway: No Preoxygenated with 100% O2: Yes C-spine Precautions Maintained Throughout: Yes Mask Ventilation: Easy maskFinal Airway Type: Endotracheal airwayFinal Endotracheal Airway: ETTCuffed: Yes Technique Used: Video laryngoscopyDevices/Methods Used in Placement: Intubating styletInsertion Site: OralBlade type: LoPro S3.ETT Size (mm): 7.0Cuff at minimum occlusion pressure: Yes Measured from: LipsETT to Lips (cm): 22Placement Verified by: CO2 detection, direct visualization and equal breath sounds Laryngoscopic view: Grade I - full view of glottisRapid Sequence Induction (RSI): Yes Modified RSI: No Number of Attempts at Approach: 1 Smooth, atramatic, lips and dentition intact.Stein MethodistContinuous EEG [id number] 21:18:40CONTINUOUS VIDEO-EEG MONITORING REPORT [id number] Date of : 1965 Initial Study Start date: 05/13/24Initial Study Start Time: 1418 Current Study Start Date: 05/14/24Current Study Start Time: 0000 Current Study End Date: 05/14/24Current Study End Time: 1131 Indication: 59 y.o. female referred for continuous video-EEG monitoring for evaluation of seizures. Technical SummaryTechnique:Modified international 10/20 system of EEG electrode placement was used. Visual Analysis of EEG-Video Monitoring:This electroencephalogram was recorded simultaneously with video throughout the monitoring. The EEG was visually inspected and analyzed for characterizationof the background activity in all awake and sleep states, abnormal focal and generalized features, and intraictal and ictal epileptiform activity. Electrical seizure activity was correlated with the patients clinical activity recorded on video and video captured clinical events were correlated withsimultaneously recorded EEG activity. Computer Analysis of EEG Waveforms:The EEG underwent continuous computerized digital spectral analysis, which consisted of real time detection of electrical events that could be considered epileptiform. All electrographic events identified by the detection program were visually inspected in order to assess the waveform characteristics and significance of these electrographic events. All intraictal and ictal epileptiform events are described further below with additional details of the visual analysis of the EEG. Events detected by computer analysis that were not determined by visual analysis to be epileptiform were considered to be myogenic, biologic, me chanical, or electrical artifact in origin. Only computer detected events that have been verified by visual inspection to be interictal or ictal epileptiform discharges are reported below and considered in the final report of this monitoring study. Findings: Background: Background consists of high amplitude delta and theta activity with occasional generalized discharges with triphasic morphology.With stimulation there is development of faster activity and poorly sustained 6 Hz posterior dominant rhythm. As the study progresses background consists of alpha and theta activity with anterior to posterior organization and 7 Hz posterior dominant rhythm. Hyperventilation was not performed. Photic stimulation: was not performed. Interictal: There are no epileptiform discharges or seizures captured. Impression:Background of reactive delta and theta activity with triphasic waves and slow posterior dominant rhythm suggests mild-moderate encephalopathy of nonspecific etiology with possible toxic metabolic contributions which improves to mild encephalopathy by the end of the recording. ICD-10 Code: H930Blcjhft MethodistContinuous EEG tmolddmsmz2705-16-46 08:45:16 CONTINUOUS VIDEO-EEG MONITORING REPORT [facility] [id number] Date of : 1965 Initial Study Start date: 05/13/24Initial Study Start Time: 1418 Current Study Start Date: 05/13/24Current Study Start Time: 1418 Current Study End Date: 05/13/24Current Study End Time: 2358 Indication: 59 y.o. female referred for continuous video-EEG monitoring for evaluation of seizures. Technical SummaryTechnique:Modified international 10/20 system of EEG electrode placement was used. Visual Analysis of EEG-Video Monitoring:This electroencephalogram was recorded simultaneously with video throughout the monitoring. The EEG was visually inspected and analyzed for characterizationof the background activity in all awake and sleep states, abnormal focal and generalized features, and intraictal and ictal epileptiform activity. Electrical seizure activity was correlated with the patients clinical activity recorded on video and video captured clinical events were correlated withsimultaneously recorded EEG activity. Computer Analysis of EEG Waveforms:The EEG underwent continuous computerized digital spectral analysis, which consisted of real time detection of electrical events that could be considered epileptiform. All electrographic events identified by the detection program were visually inspected in order to assess the waveform characteristics and significance of these electrographic events. All intraictal and ictal epileptiform events are described further below with additional details of the visual analysis of the EEG. Events detected by computer analysis that were not determined by visual analysis to be epileptiform were considered to be myogenic, biologic, mechanical, or electrical artifact in origin. Only computer detected events that have been verified by visual inspection to be interictal or ictal epileptiform discharges are reported below and considered in the final report of this monitoring study. Findings: Background: Background consists of high a mplitude delta and theta activity with occasional generalized discharges with triphasic morphology.With stimulation there is development of faster activity and poorly sustained 6 Hz posterior dominant rhythm. Hyperventilation was not performed. Photic stimulation: was not performed. Interictal: There are no epileptiform discharges or seizures captured. Impression:Background of reactive delta andtheta activity with triphasic waves and slow posterior dominant rhythm suggests mild-moderate encephalopathy of nonspecific etiology with possible toxic metabolic contributions. ICD-10 Code: J911Srzboqq MethodistEEG (routine) - Baseline [id number] 16:32:35VIDEO-EEG BASELINE RECORDING Date of Service:05/13/24 Patient Name: Jason Long of : 1965 Attending MD: Alon Boyer MD Technique: Recordings were obtained using a standard international 10-20 electrode placement supplemented with a single electrocardiogram chest electrode. The recordings were obtained using a reference electrode and reformatted digitally into sequential bipolar and referential montages for review. Indication: 59 y.o. year old female re ferred for video-EEG to evaluate for seizures. Findings: Background: Background consists of high amplitude delta and theta activity with occasional generalized discharges with triphasic morphology. With stimulation there is development of faster activity. Hyperventilation was not performed. Photic stimulation: was not performed. Interictal: There are no epileptiform discharges or seizures captured . Impression:Background of reactive delta and theta activity with triphasic waves suggests moderateencephalopathy of nonspecific etiology with possible toxic metabolic contributions. ICD-10 Code: C334Ftnxhkh MethodistSurgical pathology [id number] 11:27:12* Test Item Value Reference Range Interpretation Comme nts Case number (test code = 1013692) [id number] Surgical pathology report (test code = 2255) See link below for PDF Lab Report Result status (test code = 3039653) Final Report for [id number] Emil BealUrine lobwfai9955-74-29 18:51:00* Test Item Value Reference Range Interpretation Comme nts Urine culture (test code = 7984894) SEE COMMENT Bacteriuria scre en negative. SUSANNAH (test code = SUSANNAH) Stein MethodistArterial blood gas, [id number] 10:00:00* Test Item Value Reference Range Interpretation Comme nts pH, arterial (test code = 2744-1) 7.39 7.35-7.45 pCO2, arterial (test code = 2019-8) 42 35-45 pO2, arterial (test code = 2703-7) 200 80-90 H Temperature, Celsius (test c ode = 8310-5) 37 Degrees C O2 saturation, arterial (lana t code = 2708-6) 99 % 95-100 pH, arterial corrected (test code = 22871-8) 7.39 pCO2, arterial corrected (te st code = 65625-0) 42 mmHg pO2, arterial corrected (lana t code = 52376-2) 200 mmHg Base excess, arterial (test code = 1925-7) 0 -2-2 Lab Interpretation (test cod e = 97262-4) Abnormal [place] MethodistGlucose level, duhombc4659-79-89 10:00:00* Test Item Value Reference Range Interpretation Comme nts Glucose, syringe (test code = 2345-7) 118 mg/dL 65-99 H Lab Interpretation (test cod e = 27094-8) Abnormal Stein MethodistHemoglobin, [id number] 10:00:00* Test Item Value Reference Range Interpretation Comme nts Hemoglobin, syringe (test co de = 718-7) 14.1 g/dL 12.0-16.0 Stein MethodistIonized calcium, juvhnbvc6045-39-16 10:00:00* Test Item Value Reference Range Interpretation Comme nts Ionized calcium, arterial (t est code = 86022-6) 1.16 mmol/L 1.11-1.32 Stein MethodistLactic acid, nojjwxh4054-88-06 10:00:00* Test Item Value Reference Range Interpretation Comme nts Lactic acid, syringe (test c ode = 56545-0) 1 mmol/L 0.5-2.2 Stein MethodistPotassium, dqkckcr5135-68-09 10:00:00* Test Item Value Reference Range Interpretation Comme nts Potassium, syringe (test cod e = 93577-3) 3.3 3.5-5.0 L Lab Interpretation (test cod e = 46551-9) Abnormal [place] MethodistSodium level, cxdcfwf2806-92-87 10:00:00* Test Item Value Reference Range Interpretation Comme nts Sodium, syringe (test code = 2947-0) 140 135-148 [facility] MethodistArterial tmda4897-28-36 08:06:41Amado Peck MD 05/10/2024 8:07 AMArterial line Patient Location: ORStart Time: 05/10/2024 7:29 AMEnd Time: 05/10/2024 7:31 AM Performed by: vice president of brand management and anesthesiologistAnesthesiologist: Prince Glass MDResident/RUSSIAN RUBBER/AA: Amado Peck MDAuthorized by: Prince Glass MD Campus President Attestation: I was present and participated in the placement of the arterial line performed with the resident.Attesting provider: Prince Glass MD Pre-procedure: patient identified, IV checked, site and side verified, risks and benefits discussed, procedure verified, surgical consent complete, patient position confirmed, monitors and equipment checked, pre-op evaluation complete and timeout performed prior to procedure MSBT: antiseptic used, all elements of maximal sterile barrier technique followed, hand hygiene performed, cap/gown used by other personnel and solutions labeled Indications: Indications: hemodynamic monitoring Anesthesia: Anesthesia: GeneralProcedure Details: Arterial Line placement: Placed post induction Line placement site: RadialLine placement side: Right Arterial line gauge: 20 GNumber of attempts: 1 Ultrasound used to select the identified vessel: No Ultrasound image saved/added to patient's chart: No Needle and catheter guided into patent vessel using real- time visualization: No Relevant vasculature visualized:No Post-procedure: Post- procedure: Sterile dressing applied Post procedure circulation, sensation, m ovement: Unable to assess Patient tolerance: Patient tolerated the procedure well with no immediatecomplicationsNotes: Uncomplicated placement of arterial line.Stein LyuozxelcUyxpzu8182-51-08 07:20:00Amado Peck MD 05/10/2024 8:06 AMAirway Date/Time: 05/10/2024 7:20 AM Location: OR Performed by: anesthesiologist and anesthesia residentAnesthesiologist: Prince Glass, Jayden/RUSSIAN RUBBER/AA: Amado Peck MDAuthorized by: Prince Glass MD Campus President Attestation: I was present and participated in the placement of the airway performed with the residen t.Attesting provider: Prince Glass MD Urgency: ElectiveDifficult Airway: No Preoxygenatedwith 100% O2: Yes C-spine Precautions Maintained Throughout: Yes Mask Ventilation: Easy maskFinal Airway Type: Endotracheal airwayFinal Endotracheal Airway: ETTCuffed: Yes Technique Used: Direct laryn goscopyDevices/Methods Used in Placement: Intubating styletInsertion Site: OralBlade type: LoPro S3.Laryngoscope Blade/Videolaryngoscope Blade Size: 3ETT Size (mm): 7.0Cuff at minimum occlusion pressure: Yes Measured from: TeethETT to Teeth (cm): 22Placement Verified by: CO2 detection and direct visualization Laryngoscopic view: Grade I - full view of glottisRapid Sequence Induction (RSI): No Modified RSI: No Number of Attempts at Approach: 1 Eyes taped and protected after LOC and before airwaymanipulation. Atraumatic intubation. Lips, gums, teeth and all tissues unchanged from prior to airway instrumentation. [place] MethodistNicotine screen, [id number] 21:10:00* Test Item Value Reference Range Interpretation Comme nts Nicotine screen, urine (test code = 90949-6) NONE DETECTED SUSANNAH (test code = SUSANNAH) FASTING:YES FASTING: YES RAC (test code = RAC) Performing Organiz ation Information: Site ID: [facility] Name: [facility] Address: [address] [place] [id number] Director: Ulises Beard, PhD., [facility] MethodistNicotine and cotinine, [id number] 21:10:00* Test Item Value Reference Range Interpretation Comme nts Nicotine (test code = 3853-9) <2 ng/mL Reference Range Smoker: 2-10 Nonsmoker: < or = 4See Note 1 Cotinine (test code = 63538-8) 10 ng/mL Reference Range Smoker: 16-145 Nonsmoker: < or = 8See Note 1This drug testing is for medical treatment only. Analysis was performed as non-forensic testing and these results should be used only by healthcare providers to render diagnosis or treatment, or to monitor progress of medical conditions. Note 1 This test was developed and its analytical performance characteristics have been determined by [facility]. It has not been cleared or approved by theA. This assay has been validated pursuant to the CLIA regulations and is used for clinical purposes. SUSANNAH (test code = SUSANNAH) FASTING:YES FASTING: YES RAC (test code = RAC) Performing Organization Information: Site ID: SLI Name: [facility] Address: [address] [place] [address] Director: Cornelius Stein MethodistArterial [id number] 11:53:14Msays, Richardson 12/25/2023 11:53 AMArterial line Patient Location: OR Performed by: anesthesia residentRe sident/RUSSIAN RUBBER/AA: Ethan Smartzed by: Skip Smith MD Campus President Attestation: I was present and participated in the placement of the arterial line performed with the resident.Attesting provider: Skip Smith MD Pre-procedure: patient identified, IV checked, site and side verified, risks and benefits discussed, procedure verified, surgical consent complete, patient position confirmed, monitors and equipment checked, pre-op evaluation complete and timeout performed prior to procedure MSBT: antiseptic used, all elements of maximal sterile barrier technique followed, hand hygiene performed, cap/gown used by other personnel and solutions labeled Indications: Indications: hemodynamic monitoring Anesthesia: Anesthesia: GeneralProcedure Details: Line placement site: RadialLine placement side: Right Arterial line gauge: 22 GNumber of attempts: 1 Ultrasound used to select the identified vessel: Yes Ultrasound image saved/added to patient's chart: Yes Needle and catheter guided into patent vessel using real-time visualization: Yes Relevant vasculature visualized: Yes Post-procedure: Post-procedure: Sterile dressing applied Post procedure circulation, sensation, movement: Normal Patient tolerance: Patient tolerated the procedure well with no immediate complicationsMemorial Hermann Southwest Hospitalirway 2023-12-25 11:19:00Msays, Richardson 12/25/2023 11:53 AMAirway Date/Time: 12/25/2023 11:19 AM Location: OR Performed by: anesthesia residentAnesthesiologist: Skip Smith MDResident/RUSSIAN RUBBER/AA: Ethan Smartzed by: Skip Smith MD Campus President Attestation: I was present and participated in the placement of the airway performed with the resident.Attesting provider: Skip Smith MD Urgency: ElectiveDifficult Airway: No Preoxygenated with 100% O2: Yes C-spine Precautions Maintained Throughout: Yes Mask Ventilation: Easy maskFinal Airway Type: Endotracheal airwayFinal Endotracheal Airway: ETTCuffed: Yes Technique Used: Video laryngoscopyDevices/Methods Used in Placement: Intubating styletInsertion Site: OralBlade Type: MacintoshLaryngoscope Blade/Videolaryngoscope Blade Size: 2ETT Size (mm): 7.0Cuff at minimum occlusion pressure: Yes Measured from: LipsETT to Lips (cm): 22Placement Verified by: CO2 detection and direct visualization Laryngoscopic view: Grade I - full view of glottisRapid Sequence Induction (RSI): Yes Modified RSI: Yes Number of Attempts at Approach: 1[facility] MethodistECG 12 [id number] 13:00:33* Test Item Value Reference Range Interpretation Comme nts Ventricular rate (test code = 253) 79 Atrial rate (test code = 255) 79 TN interval (test code = 266) 166 QRSD interval (test code = 260) 88 QT interval (test code = 264) 372 QTC interval (test code = 265) 426 P axis 1 (test code = 267) 38 QRS axis 1 (test code = 268) 21 T wave axis (test code = 270) 58 EKG impression (test code = 273) Normal sinus rhythm-Normal ECG-In automated comparison with ECG of 26-AUG-2023 10:11,-No significant change was found- [facility]2024-08-07 10:05:41Shekhar Lea MD 12/23/2023 5:39 PMCritical care provider statement (critical care time was exclusive of separately billable procedures and treating other patients):Critical Care Performed by: Shekhar Lea MDAuthorized by: Shekhar Lea MD Critical care provider statement: Criticalcare time (minutes): 32 Critical care time was exclusive of:: Teaching time Critical care was necessary to treat or prevent imminent or life-threatening deterioration of the following conditions: CNSfailure or compromise Critical care was time spent personally by me on the following activities: Development of treatment plan with patient or surrogate, discussions with consultants, evaluation of patient's response to treatment, examination of patient, interpretation of cardiac output measurements, obtaining history from patient or surrogate, ordering and performing treatments and interventions, ordering and review of laboratory studies, ordering and review of radiographic studies, pulse oximetry, re-evaluation of patient's condition and review of old charts Emilio 'yes' if you are taking over critical care for this patient from another provider.: Cristy BealBvqpfobdoXEF1151-84-23 21:06:00* Test Item Value Reference Range Interpretation Comme nts GGT (test code = 2324-2) 40 0-60 SUSANNAH (test code = SUSANNAH) Performed at: [address] [place] [id number] Director: Deandre Kinney MD, Phone: [phone] [facility] HospitalistImmunoglobulin G, A, [id number] 21:06:00* Test Item Value Reference Range Interpretation Comme nts IgG (test code = 2465-3) 798 mg/dL 586-1602 IgA (test code = 2458-8) 290 mg/dL 87-352 IgM (test code = 2472-9) 194 mg/dL 26-217 SUSANNAH (test code = SUSANNAH) Performed at: [address] [place] [address] [id number] Director: Deandre Kinney MD, Phone: [phone] [facility] muscle antibodies, [id number] 21:06:00* Test Item Value Reference Range Interpretation Comme nts F-actin (smooth muscle) Ab, IgG (test code = 54972-0) 4 0-19 Negative 0 - 19 Weak positive 20 - 30 Moderate to strong positive >30 Actin Antibodies are found in 52-85% of patients with autoimmune hepatitis or chronic active hepatitis and in 22% of patients with primary biliary cirrhosis. SUSANNAH (test code = SUSANNAH) Performed at: [address] [place] [id number] Director: Jesus Green MD, Phone: [phone] [place] MethodistAnti-mitochondrial antibodies (AMA), immunofluorescence 2023-11-21 21:06:00* Test Item Value Reference Range Interpretation Comme nts Anti-mitocho ndrial Ab by IFA (test code = 5247-2) <1:20 See_Comment [Automated messa ge] The system which generated this result transmitted reference range: <1:20. The reference range was not used to interpret this result as normal/abnormal. SUSANNAH (test code = SUSANNAH) Test(s) 881857-Ssis-Sxyihsrqmcw al Ab by IFAwas developed and its performance characteristics determinedby [facility]. It has not been cleared or approved by the Foodand Drug Administration.Performe d at: [facility] [employer] [address] [id number] Director: Abhinav Saldana MD, Phone: [phone] [place] MethodistEstradiol laiix5126-07-01 15:13:00* Test Item Value Reference Range Interpretation Comme nts Estradiol (test code = 2243-4) 51.1 pg/mL Adult Female Ran ge Follicular phase 12.5 - 166.0 Ovulation phase 85.8 - 498.0 Luteal phase 43.8 - 211.0 Postmenopausal <6.0 - 54.7 1st trimester 215.0 - >4300.0Roche ECLIA methodology SUSANNAH (test code = SUSANNAH) Performed at: - Lab[address] [id number] Director: Deandre Kinney MD, Phone: [phone] [place] MethodistBone specific alk lflkgfmuzuj5925-03-34 15:13:00* Test Item Value Reference Range Interpretation Comme nts Tandem-R Ostase (test code = 84676-5) 19.4 ug/L Premenopausal Wo men: 6.0 - 22.7 Postmenopausal Women: 8.1 - 31.6 SUSANNAH (test code = SUSANNAH) Performed at: [address] [id number] Director: Jesus Green MD, Phone: [phone] [place] MethodistProtein electrophoresis, [id number] 15:13:00* Test Item Value Reference Range Interpretation Comme nts Protein (test code = 2885-2) 6.3 g/dL 6.0-8.5 SPE albumin (test code = 2862-1) 3.3 g/dL 2.9-4.4 Slxfg-1-hjcukrf n (test code = 2865-4) 0.3 g/dL 0.0-0.4 Ynqnu-4-qnmeuvz n (test code = 2868-8) 0.9 g/dL 0.4-1.0 Beta globulin (test code = 2871-2) 1.1 g/dL 0.7-1.3 Gamma globulin (test code = 2874-6) 0.8 g/dL 0.4-1.8 M-Gonzales, serum (g/dL) (test code = 11982-8) Not Observed Not Observed g/dL Globulin (test code = 21027-0) 3 g/dL 2.2-3.9 Albumin/globuli n ratio (test code = 1759-0) 1.1 0.7-1.7 Please note (test code = 61452-9) Comment Protein electrophoresis scan will follow via computer, mail, orcourier delivery. SUSANNAH (test code = SUSANNAH) Performed at: - [facility] [id number] Director: Deandre Kinney MD, Phone: [phone] ed at: [address] [id number] Director: LISETTE Perez MD, Phone: [phone] [place] MethodistParathyroid hormone (PTH) and unkamiv4603-12-48 15:13:00* Test Item Value Reference Range Interpretation Comme nts Calcium (test code = 66801-7) 9.3 mg/dL 8.7-10.2 PTH (test code = 2731-8) Comment pg/mL 15-65 Interpretation I ntact PTH Calcium (pg/mL) (mg/dL)Normal 15 - 65 8.6 - 10.2Primary Hyperparathyroidism >65 >10.2Secondary Hyperparathyroidism >65 <10.2Non-Parathyroid Hypercalcemia <65 >10.2Hypoparathyroidism <15 < 8.6Non-Parathyroid Hypocalcemia 15 - 65 < 8.6 SUSANNAH (test code = SUSANNAH) Performed at: 01 - [address] [id number] Director: Deandre Kinney MD, Phone: [phone] med at: [facility] [id number] Director: Jesus Green MD, Phone: [phone] [facility] HospitalistCeliac disease screen with pneulgpt9591-65-21 15:13:00* Test Item Value Reference Range Interpretation Comments Tissue transglutaminase Ab, IgA (test code = 98095-8) <2 0-3 Negative 0 - 3 W eak Positive 4 - 10 Positive >10 Tissue Transglutaminase (tTG) has been identified as the endomysial antigen. Studies have demonstr- ated that endomysial IgA antibodies have over 99% specificity for gluten sensitive enteropathy. IgA (test code = 2458-8) 250 mg/dL 87-352 SUSANNAH (test code = SUSANNAH) Performed at: [facility] [id number] Director: Jesus Green MD, Phone: [phone] rmed at: [facility] [id number] Director: Deandre Kinney MD, Phone: [phone] [facility] HospitalistECG Pre/Post [id number] 16:33:11* Test Item Value Reference Range Interpretation Comme nts Ventricular rate (test code = 253) 69 Atrial rate (test code = 255) 69 TN interval (test code = 266) 160 QRSD interval (test code = 260) 96 QT interval (test code = 264) 388 QTC interval (test code = 265) 415 P axis 1 (test code = 267) 52 QRS axis 1 (test code = 268) 72 T wave axis (test code = 270) 75 EKG impression (test code = 273) Normal sinus rhythm-Electronicall y Signed By Oliverio Ng MD ([id number]) on 08/26/2023 4:32:38 PM [facility]- [facility] LOW EXT W/O CONT [id number] 10:14:00 [facility] 1965 Sex: F Patient Name: JASON LONG Unit No: [id number] EXAMS: CPT CODE: [id number] MRI LOW EXT W/[place] [address] MRI OF THE LEFT FOOT DIAGNOSIS: 1. Was made with the previous examination of January 05, 2023. The patient is status post bunion repair with an osteotomy of the proximal phalanx of the great toe. Cystic changes at the dorsal aspect of the 1st metatarsophalangeal joint are consistent with synovitis. Hammertoe deformity is present. 2. Hammertoe deformities of the 2nd toe. 3. Degenerative change is seen in the medial head of the 1st metatarsal and the naviculocuneiform joint medially. COMMENT: Scans were performed in the sagittal, axial and coronal planes utilizing T1, T2 and inversion recovery images. Bony abnormalities are present as described. No tendon tears are seen. No ligamentous tears are identified. Mild edema is present in the flexor digitorum brevis consistent with a mild strain. at 1014 Reported and signed by: Jono Mccormick MD CC: Johanny العراقي MD Technologist: AMY UNDERWOOD RT (R) Transcribed D/ (1014) t.VINAYR.JCL [facility] NAME: JASON LONG [address] [facility] PHYS: Johanny Grant MD : 1965 AGE: 58 SEX: F [place], [place] [address] LOC: Y.MRI PHONE #: [phone] EXAM DATE: 05/04/2023 STATUS: REG CLI FAX #: [phone] RAD #: [id number] D/C DT PAGE 1 Signed Report Patient Name: JASON LONG IE Unit No: [id number] EXAMS: CPT CODE: [id number] MRI LOW EXT W/[place] [address] (Continued) Orig Print D/T: S: 05/04/2023 (1017) [facility] NAME: JASON LONG [address] [facility] PHYS: Johanny Grant MD : 1965 AGE: 58 SEX: F [place], [place] [address] LOC: Y.MRI PHONE #: [phone] EXAM DATE: 05/04/2023 STATUS: REG CLI FAX #: [phone] RAD #: [id number] D/C DT PAGE 2 Signed PctvjjARIIHF8544-36-09 08:43:00* Test Item Value Reference Range Interpretation Comme nts GLUBED (test code = GLUBED) 105 mg/dL 60-99 H The normal fasti ng blood glucose range for a non-diabeticadult is 60-99 mg/dL. Two hours after meals, normal blood glucose levels should beless than 140 mg/dL.Please note new normal range. Bone Loypzat3208-16-95 17:44:05EXAMINATION: BONE DENSITY, BONE DENSITY PERIPHERAL CLINICAL HISTORY: 57 years Female M81.0 Age-related osteoporosis without current pathological fracture, osteoporosis MOST RECENT PRIOR STUDY: None. The results of this study expressed as bone mineral density (BMD) were as follows: AP spine (L1-L4)BMD: 1.741 g/is6S-Swzrq: 6.3Z-Score: 7.6, Dual Femur (Total Mean):BMD: 0.880 g/sw2U-Fhcjh: 0.5Z-Score: 0.3 Femur neck:Based on femur neck BMD 0.786 T Score Femoral Neck: -1.0 Left Forearm (Radius 33%):BMD: 0.619 g/mq8N-Qoeqn: -1.3Z-Score: -0.1 Impression: 1.WHO classification is consistent with osteopenia. Notes: The world health organization (WHO) has classified the patient's T-score as follows: At or above (-1) as normal(-1) to (-2.5) as low (osteopenia)At or below (-2.5) as abnormally low (osteoporosis, increased fracture risk) For premenopausal women, men under the age 50 years, and children the WHO classification does not apply. In these individuals please assess bone mineral density with Z scores for each skeletal site examined. Z scores above - 2.0: Within expected range for age. Z scores lower than -2.0: Low bone density for age. The TBS is derived from the texture of the DEXA image and has been shown to be related to bone microarchitecture and fracture risk. This data provides information independent of BMD value; is used as a complement to the data obtained from the DEXA analysis and the clinical examination. The TBS can assist the healthcare professional in assessment of fracture risk and in monitoring the effect of treatments on patient over time. [id number]_[id number] HospitalBone Density Ntuenbtthl9829-97-35 17:44:05EXAMINATION: BONE DENSITY, BONE DENSITY PERIPHERAL CLINICAL HISTORY: 57 years Female M81.0 Age-related osteoporosis without current pathological fracture, osteoporosis MOST RECENT PRIOR STUDY: None. The results of this study expressed as bone mineral density (BMD) were as follows: AP spine (L1-L4)BMD: 1.741 g/ag4C-Kmocn: 6.3Z-Score: 7.6, Dual Femur (Total Mean):BMD: 0.880 g/fm3R-Gnmyh: 0.5Z-Score: 0.3 Femur neck:Based on femur neck BMD 0.786 T Score Femoral Neck: -1.0 Left Forearm (Radius 33%):BMD: 0.619 g/yd1Q-Qszld: -1.3Z-Score: -0.1 Impression: 1.WHO classification is consistent with osteopenia. Notes: The world health organization (WHO) has classified the patient's T-score as follows: At or above (-1) as normal(-1) to (-2.5) as low (osteopenia)At or below (-2.5) as abnormally low (osteoporosis, increased fracture risk) For premenopausal women, men under the age 50 years, and children the WHO classification does not apply. In these individuals please assess bone mineral density with Z scores for each skeletal site examined. Z scores above -2.0: Within expected range for age. Z scores lower than -2.0: Low bone density for age. The TBS is derived from the texture of the DEXA image and has been shown to be related to bone microarchitecture and fracture risk. This data provides information independent of BMD value; is used as a complement to the data obtained from the DEXA analysis and the clinical examination. The TBS can assist the healthcare professional in assessment of f racture risk and in monitoring the effect of treatments on patient over time. [id number] Spine Scoliosos 2-3 [id number] 17:13:24 EXAMINATION: XR SPINE SCOLIOSIS 2-3 VIEWS CLINICAL HISTORY: M54.12 Radiculopathy cervical region, M54.16 Radiculopathy lumbar region, Abnormal posture COMPARISON: Cervical radiographs earlier same day and lumbar radiographs from April 2016. External lumbar MR November 10, 2022. IMPRESSION: 8 images were acquired. 33 degrees of leftward curvature of the lower lumbar spine apex at L3- 4 measured fromthe superior L2 to the inferior L5 endplate. A coronal unruly line drawn inferiorly form the mid C7 vertebral body 2.3 cm to the right of mid sacral line. A sagittal unruly line drawn inferiorly from the mid C7 vertebral body 2.7 cm anterior to the posterior aspect of the superior S1 endplate. Slight rightward pelvic tilt with the left femoral head approximately 4 mm superior to the right. Multilevel intervertebral disc space height loss and spondylotic changes most prominent about the lumbar spine. Similar findings within the thoracic spine with degenerative vertebral body height loss/wedging.No acute osseous findings. Chest is clear. Cardiopericardial silhouette within normal limits. Nonobstructive bowel gas pattern. [id number]XR Cervical Spine Complete w flex/zdh5595-25-02 17:08:27EXAM: XR CERVICAL SPINE COMPLETE W FLEX EXT CLINICAL HISTORY: M54.12 Radiculopathy cervical region, cervical spondylosis COMPARISON: None. 7 views of the cervical spine are obtained. FINDINGS: Minimal, less than 1.5 mm anterolisthesis of C5 on C6. Alignment of vertebral bodies is otherwise normal. No pathological subluxation seen on the flexion and extension views. No acute fracture or spondylolisthesis is seen. Dens is at midline and intact. Mild to moderate discogenic degenerative changes including disc height loss, endplate sclerosis, and developing osteophytes is noted. Suggestion of moderate to severe right-sided foraminal narrowing at the C3-C4 and C4-C5 levels. Severe left-sided foraminal narrowing is seen at the C6-C7 level. Moderate left-sided foraminal narrowing seen at the C3-C4 and C4-C5 levels. Soft tissues are unremarkable. IMPRESSION: No acute abnormality identified within the cervical spine. No dynamic instability. Mild to moderate degenerative changes noted. [facility] Cervical Spine Wo Vpltvsta9670-67-05 16:35:10EXAM: MRI CERVICAL SPINE WO CONTRAST CLINICAL HISTORY: M54.12 Radiculopathy cervical region, Myelopathy chronic cervical spine TECHNIQUE: Multiplanar multisequence noncontrast enhanced examination was performed of the cervical spine. COMPARISON: Cervical radiograph, same day FINDINGS: The cervicomedullary junction is unremarkable. Straightening of cervical lordotic curvature secondary to patient positioning. There is less than 1.5 mm retrolisthesis of C2 on C3, C3 on C4, C4 and C5, C6 on C7, aswell as anterolisthesis of C7 on T1. Mild to moderate STIR hyperintense Modic type I degenerative edema seen at the posterolateral C6-C7 endplates. Cervical lordotic alignment, vertebral body height,and bone marrow signal are otherwise within normal limits. There is no evidence of acute fracture, s uspicious osteolytic lesion, or suspicious osteoblastic lesion. No abnormal cord signal is identified. Evaluation of the disc levels is as follows: C1-C2: The atlantoaxial interval is intact. No significant thecal sac or foraminal stenosis. C2-C3: No significant thecal sac stenosis or foraminal narrowing. C3- C4: No significant thecal sac stenosis. Moderate to advanced bilateral foraminal narrowing. C4-C5: Minimal thecal sac stenosis (approximately 9.5 mm midline AP diameter, axial image 23). Chronic severe bilateral foraminal narrowing, particularly on the left. C5-C6: Small left paracentral disc protrusion. Moderate thecal sac stenosis (approximately 7 to 8 mm midline AP diameter, axial image 27). Effacement of the CSF space ventrally and posteriorly. No abnormal cord signal is seen. Minimal bilateral foraminal narrowing. C6-C7: Shallow disc protrusion or disc bulge. Mild to moderate thecal sac stenosis (approximately 8- 9 mm midline AP diameter, axial image 31, series 5, and sagittalimage 8, series 2). Severe bilateral foraminal narrowing, particularly left. C7-T1: No significant thecal sac stenosis. Mild right and minimal/mild left-sided foraminal narrowing. Visualized paraspinal soft tissues are unremarkable. No incidental thyroid nodules are noted. IMPRESSION: 1.Mild to moderate STIR hyperintense Modic type I degenerative edema seen at the posterolateral C6-C7 endplates. Otherwise no MRI evidence for acute vertebral fracture, edematous marrow signal, or abnormal cord signal. 2.Moderate thecal sac stenosis at the C5-C6 level. Mild to moderate thecal sac stenosis at theC6-C7 level. Mild/minimal thecal sac stenosis at the C4-C5 level. Suggestion of multilevel chronic foraminal narrowing as detailed above. [facility]- MRI LOW EXT W/O CONT [id number] 12:45:00 [facility] : 1965 Sex: F Patient Name: JASON LONG Unit No: [id number] EXAMS: CPT CODE: [id number] MRI LOW EXT W/[place] [address] TECHNIQUE: Multiplanar multisequence images of the left foot were obtained withoutthe administration of intravenous contrast. COMPARISON STUDY: None available. FINDINGS: A bipartitemedial hallux sesamoid is demonstrated with degenerative cystic change noted both proximally and distally. Mild degenerative edema is noted at the metatarsal head articulation. The plantar plate is intact. The lateral hallux sesamoid is normal in appearance. Intramuscular edema seen within the medial head of the flexor hallucis brevis muscle, concerning for a strain (image 27 of series 3). No other significant osseous abnormality. No acute fracture. No significant muscle atrophy. IMPRESSION: 1.Intramuscular edema of the flexor hallucis brevis medial head, concerning for strain. 2. Bipartite medial hallux sesamoid with degenerative cystic change present. at 1245 Reported and signed by: Oliverio Cornelius M.D. CC: Rere العراقي MD Technologist: Gomez Steele(R) Transcribed D/ (9395) tPOOJAJ [facility] NAME: JASON LONG [address] [facility] PHYS: Johanny Grant MD : 1965 AGE: 57 SEX: F [place] [address] LOC: Y.MRI PHONE#: [phone] EXAM DATE: 01/05/2023 STATUS: DEP CLI FAX #: [phone] RAD #: [id number] D/C DT PAGE 1 Signed Report Patient Name: JASON LONG Unit No: [id number] EXAMS: CPT CODE: [id number] MRI LOW EXT W/[place] [address] (Continued) Orig Print D/T: S: 01/06/2023 (1249) [facility] NAME: JASON LONG [address] [facility] PHYS: Johanny Grant MD : 1965 AGE: 57 SEX: F [place] [address] LOC: Y.MRI PHONE #: [phone] EXAM DATE: 01/05/2023 STATUS: DEP CLI FAX #: [phone] RAD #: [id number] D/C DT PAGE 2 Signed ReportI Spine External Study 2022-12-29 20:02:56This exam was not acquired at a [facility] facility and has not been interpreted by a [facility] Provider. The exam was imported into our imaging system.[facility] METABOLIC [id number] 07:08:00* Test Item Value Reference Range Interpretation Comme nts SODIUM (test code = NA) 140 mmol/L 136-145 N POTASSIUM (test code = K) 4.0 mmol/L 3.5-5.1 N CHLORIDE (test code = CL) 103.0 mmol/L 98-107 N CARBON DIOXIDE (test code = CO2) 28.6 mmol/L 21-32 N GLUCOSE (test code = GLU) 118 mg/dL 70-110 H BLOOD UREA NITROGEN (test code = BUN) 12 mg/dL 7-18 N GLOMERULAR FILTRATION RATE (test code = GFR) 91.0 >60 Unit of m easure: mL/min/1.73 t8Fabergerm Range:Healthy Adults >90 mL/min/1.73 m2 For Chronic Kidney Disease: Stage II Mild Decrease in GFR 60-90 Stage III Moderate Decrease in GFR 30-59 Stage IV Severe Decrease in GFR 15-29 Stage V Kidney Failure <15 CREATININE (test code = CREAT) 0.67 mg/dL 0.55-1.30 N CALCIUM (test code = CA) 8.7 mg/dL 8.2-10.1 N SPECIMEN COMMENT: POD #1HGB [id number] 05:59:00* Test Item Value Reference Range Interpretation Comme nts HEMOGLOBIN (test code = HGB) 12.5 g/dL 12-16 N HEMATOCRIT (test code = HCT) 36.8 % 37-47 L SPECIMEN COMMENT: POD #1Hemoglobin and Hematocrit panel - [id number] 04:45:00* Test Item Value Reference Range Interpretation Comme nts hemoglobin (test code = hemoglobin) 12.5 g/dL 12-16 hematocrit (test code = hematocrit) 36.8 % 37-47 L performing lab: (test code = performing lab:) [facility] metabolic [id number] 04:45:00* Test Item Value Reference Range Interpretation Comme nts sodium (test code = sodium) 140 mmol/L 136-145 potassium (test code = potassium) 4.0 mmol/L 3.5-5.1 chloride (test code = chloride) 103.0 mmol/L 98-107 carbon dioxide (test code = carbon dioxide) 28.6 mmol/L 21-32 glucose (test code = glucose) 118 mg/dL 70-110 H blood urea nitrogen (test co de = blood urea nitrogen) 12 mg/dL 7-18 glomerular filtration rate ( test code = glomerular filtration rate) 91.0 >60 creatinine (test code = creatinine) 0.67 mg/dL 0.55-1.30 calcium (test code = calcium) 8.7 mg/dL 8.2-10.1 performing lab: (test code = performing lab:) [facility]- XR KNEE 1 OR 2 V [id number] 21:21:00 [facility] : 1965 Sex: F Patient Name: JASON LONG Unit No: [id number] EXAMS: CPT CODE: [id number] XR KNEE 1 [place]2 [place] [address] IMAGES PROVIDED: 2 FINDINGS: Postoperative changes from right total knee arthoplasty demonstrated without evidence of immediate complication. No acute fracture is visualized. IMPRESSION:Postoperative exam as above. at 1 Reported and signed by: Oliverio Cornelius M.D. CC: Emil Guzman II, MD; Chuy Alejandra Technologist: GIANCARLO GRAHAM (RT.R) Transcribed D/ (2120) [facility]: [facility]ASON [facility] [address] [facility] [address] PHYS: Emil Swanson II, MD : 1965 AGE: 56 SEX: F [place] [address] LOC: Y.515 A PHONE #: [phone] EXAM DATE: 01/16/2022 STATUS: ADM IN FAX #: [phone] RAD #: [id number] D/C DT PAGE 1 Signed Report Patient Name: JASON LONG Unit No: [id number] EXAMS: CPT CODE: [id number] XR KNEE 1 OR 2 V RT [address]16 (Continued) Orig Print D/T: S: 01/17/2022 (0718) [facility] NAME: JASON LONG [address] [facility] PHYS: Emil Swanson II, MD : 1965 AGE: 56 SEX: F [place], [place] [address] LOC: Y.515 A PHONE #: [phone] EXAM DATE: 01/16/2022 STATUS: ADM IN FAX #: [phone] RAD #: [id number] D/C DT PAGE 2 Signed ReportCOMPREHENSIVE METABOLIC [id number] 11:47:00* Test Item Value Reference Range Interpretation Comme nts SODIUM (test code = NA) 140 mmol/L 136-145 N POTASSIUM (test code = K) 3.3 mmol/L 3.5-5.1 L CHLORIDE (test code = CL) 99.0 mmol/L 98-107 N CARBON DIOXIDE (test code = CO2) 32.0 mmol/L 21-32 N GLUCOSE (test code = GLU) 97 mg/dL 70-110 N BLOOD UREA NITROGEN (test code = BUN) 14 mg/dL 7-18 N GLOMERULAR FILTRATION RATE (test code = GFR) 76.4 >60 Unit of m easure: mL/min/1.73 i0Gyxufvuks Range:Healthy Adults >90 mL/min/1.73 m2 For Chronic Kidney Disease: Stage II Mild Decrease in GFR 60-90 Stage III Moderate Decrease in GFR 30-59 Stage IV Severe Decrease in GFR 15-29 Stage V Kidney Failure <15 CREATININE (test code = CREAT) 0.78 mg/dL 0.55-1.30 N TOTAL PROTEIN (test code = PROT) 7.5 g/dL 6.4-8.2 N ALBUMIN (test code = ALB) 4.1 g/dL 3.4-5.0 N GLOBULIN (test code = GLOB) 3.4 g/dL 2.2-4.2 N ALBUMIN/GLOBULIN RATIO (test code = A/G) 1.2 0.7-2.0 N CALCIUM (test code = CA) 9.6 mg/dL 8.2-10.1 N BILIRUBIN TOTAL (test code = BILT) 0.60 mg/dL 0.2-1.00 N SGOT/AST (test code = AST) 17.0 U/L 15-37 N SGPT/ALT (test code = ALT) 31.0 U/L 12-78 N Please note new normal range. ALKALINE PHOSPHATASE TOTAL (test code = ALKP) 144 U/L 46-116 H CBC W/AUTO [id number] 10:42:00* Test Item Value Reference Range Interpretation Comme nts WHITE BLOOD CELL (test code = WBC) 10.8 K/mm3 5.8-11.0 N RED BLOOD CELL (test code = RBC) 4.90 M/mm3 4.2-5.4 N HEMOGLOBIN (test code = HGB) 15.4 g/dL 12-16 N HEMATOCRIT (test code = HCT) 44.4 % 37-47 N MEAN CELL VOLUME (test code = MCV) 91 fL 80-98 N MEAN CELL HGB (test code = MCH) 31.4 pg 27-34 N MEAN CELL HGB CONCENTRATION (test code = MCHC) 34.7 g/dL 30.8-34.1 H RED CELL DISTRIBUTION WIDTH (test code = RDW) 12.9 % 11-16 N PLT (test code = PLT) 315 K/mm3 130-400 N MEAN PLATELET VOLUME (test c ode = MPV) 9.4 fL 8.9-12.1 N NEUTROPHIL % (test code = NT%) 62.0 % 45-70 N LYMPHOCYTE % (test code = LY%) 27.2 % 20-40 N MONOCYTE % (test code = MO%) 7.6 % 3-10 N EOSINOPHIL % (test code = EO%) 2.3 % 1-5 N BASOPHIL % (test code = BA%) 0.6 % 0.0-1.1 N NEUTROPHIL # (test code = NT#) 6.68 K/mm3 2.00-7.50 N LYMPHOCYTE # (test code = LY#) 2.93 K/mm3 1.50-4.00 N MONOCYTE # (test code = MO#) 0.82 K/mm3 0.2-0.8 H EOSINOPHIL # (test code = EO#) 0.25 K/mm3 0.04-0.4 N BASOPHIL # (test code = BA#) 0.06 K/mm3 0.02-0.10 N MANUAL DIFF REQUIRED (test c ode = MDIFF) NO MANUAL DIFF NUCLEATED RED BLOOD CELL (te st code = NRBC) 0 % 0-0 N CBC W Auto Differential panel - [id number] 09:25:00* Test Item Value Reference Range Interpretation Comme nts white blood cell (test code = white blood cell) 10.8 K/mm3 5.8-11.0 red blood cell (test code = red blood cell) 4.90 M/mm3 4.2-5.4 hemoglobin (test code = hemoglobin) 15.4 g/dL 12-16 hematocrit (test code = hematocrit) 44.4 % 37-47 mean cell volume (test code = mean cell volume) 91 fL 80-98 mean cell HGB (test code = m cristina cell HGB) 31.4 pg 27-34 mean cell HGB concentration (test code = mean cell HGB concentration) 34.7 g/dL 30.8-34.1 H red cell distribution width (test code = red cell distribution width) 12.9 % 11-16 plt (test code = plt) 315 K/mm3 130-400 mean platelet volume (test c ode = mean platelet volume) 9.4 fL 8.9-12.1 neutrophil % (test code = neutrophil %) 62.0 % 45-70 lymphocyte % (test code = lymphocyte %) 27.2 % 20-40 monocyte % (test code = mono cyte %) 7.6 % 3-10 eosinophil % (test code = eosinophil %) 2.3 % 1-5 basophil % (test code = baso kadie %) 0.6 % 0.0-1.1 neutrophil # (test code = neutrophil #) 6.68 K/mm3 2.00-7.50 lymphocyte # (test code = lymphocyte #) 2.93 K/mm3 1.50-4.00 monocyte # (test code = mono cyte #) 0.82 K/mm3 0.2-0.8 H eosinophil # (test code = eosinophil #) 0.25 K/mm3 0.04-0.4 basophil # (test code = baso kadie #) 0.06 K/mm3 0.02-0.10 manual diff required (test c ode = manual diff required) no manual diff nucleated red blood cell (te st code = nucleated red blood cell) 0 % 0-0 performing lab: (test code = performing lab:) [facility] - Serum or [id number] 09:25:00* Test Item Value Reference Range Interpretation Comme nts sodium (test code = sodium) 140 mmol/L 136-145 potassium (test code = potassium) 3.3 mmol/L 3.5-5.1 L chloride (test code = chloride) 99.0 mmol/L 98-107 carbon dioxide (test code = carbon dioxide) 32.0 mmol/L 21-32 glucose (test code = glucose) 97 mg/dL 70-110 blood urea nitrogen (test co de = blood urea nitrogen) 14 mg/dL 7-18 glomerular filtration rate ( test code = glomerular filtration rate) 76.4 >60 creatinine (test code = creatinine) 0.78 mg/dL 0.55-1.30 total protein (test code = t otal protein) 7.5 g/dL 6.4-8.2 albumin (test code = albumin) 4.1 g/dL 3.4-5.0 globulin (test code = globulin) 3.4 g/dL 2.2-4.2 albumin/globulin ratio (test code = albumin/globulin ratio) 1.2 0.7-2.0 calcium (test code = calcium) 9.6 mg/dL 8.2-10.1 bilirubin total (test code = bilirubin total) 0.60 mg/dL 0.2-1.00 SGOT/AST (test code = SGOT/AST) 17.0 U/L 15-37 SGPT/ALT (test code = SGPT/ALT) 31.0 U/L 12-78 alkaline phosphatase total ( test code = alkaline phosphatase total) 144 U/L 46-116 H performing lab: (test code = performing lab:) [facility]Meth[facility] resistant Staphylococcus aureus [Presence] in Specimen by Organism specific [id number] 09:25:00* Test Item Value Reference Range Interpretation Comme nts MRSA surveillance screen (te st code = MRSA surveillance screen) see below performing lab: (test code = performing lab:) [facility] PCR surveillance [id number] 09:25:00 * Test Item Value Reference Range Interpretation Comme nts mssa PCR surveillance screen (test code = mssa PCR surveillance screen) see below performing lab: (test code = performing lab:) [facility] [id number] 03:17:00* Test Item Value Reference Range Interpretation Comme nts Novel Coronavirus 2019 Inhouse (test code = COVNONPUI) Negative Negative Positive resul ts are indicative of the presence [id number] RNA, clinical correlation with patient historyand other diagnostic information is necessary to determinepatient infection status. Positive results do not rule outbacterial infection or co-infection with other viruses. Negative results do not preclude SARS-CoV-2 infection andshould not be used as the sole basis for patient managementdecisions. Negative results must be combined with otherclinical observations, patient history, and epidemiologicalinformation . Detection of SARS-CoV-2 RNA may be affected bysample collection methods, storage conditions, and/or stageof infection. Viral RNA mutations, vaccinations, antiviraltherapeutics, antibiotics, chemotherapeutic orimmunosuppressant drugs have not been evaluated for effectson detection. Results are for the identification of SARS-CoV-2 RNA usingthe [employer] M2000 System under the FDA Emergency UseAuthorization. The testing is performed by personneltrained in the procedures for the [employer] M2000 moleculardiagnostic SARS-CoV-2 assay in vitro. Novel Coronavirus 2018 [id number] 03:17:00* Test Item Value Reference Range Interpretation Comme nts Novel Coronavirus 2019 Inhouse (test code = COVNONPUI) Negative Negative Positive resul ts are indicative of the presence [id number] RNA, clinical correlation with patient historyand other diagnostic information is necessary to determinepatient infection status. Positive results do not rule outbacterial infection or co-infection with other viruses. Negative results do not preclude SARS-CoV-2 infection andshould not be used as the sole basis for patient managementdecisions. Negative results must be combined with otherclinical observations, patient history, and epidemiologicalinformation . Detection of SARS-CoV-2 RNA may be affected bysample collection methods, storage conditions, and/or stageof infection. Viral RNA mutations, vaccinations, antiviraltherapeutics, antibiotics, chemotherapeutic orimmunosuppressant drugs have not been evaluated for effectson detection. Results are for the identification of SARS-CoV-2 RNA usingthe [employer] M2000 System under the FDA Emergency UseAuthorization. The testing is performed by personneltrained in the procedures for the [employer] M2000 moleculardiagnostic SARS-CoV-2 assay in vitro. - MRI JNT W/O CONT [id number] 19:11:00 [facility] 1965 Sex: F Patient Name: JASON LONG Unit No: [id number] EXAMS: CPT CODE: [id number] MRI [facility] W/[place] [address] TECHNIQUE: Multiplanar, multisequence MRI of the right knee without contrast. COMPARISON: None available. FINDINGS: Menisci: A complex tear of the medial meniscus is demonstrated witha horizontal component extending from the posterior horn and meniscal body. There is also a radial component at the posterior horn/root junction. No lateral meniscal tear is identified. Ligament and tendons: The ACL and PCL are intact. The collateral ligaments are maintained. The extensor mechanismis unremarkable. Cartilage/ bone: High-grade cartilage degeneration of the medial patellar facet measures 7 mm transversely. There is also multifocal high-grade femoral trochlear cartilage degeneration both medially and laterally. Severe medial femoral condyle cartilage degeneration is seen throughout the weightbearing surface with associated osteophytosis. Subchondral edema of the medial tibial plateau is likely secondary to stress change. The lateral compartment cartilage is within normal limits. No acute fracture. Other: A small joint effusion is present as well as a popliteal cyst. No discrete loose body. IMPRESSION: 1. Complex tear of the posterior horn and body of the medial meniscus. 2. Severe medial femoral condyle cartilage degeneration as well as moderate patellofemoral cartilage degeneration. 3. Edema within the medial tibial plateau likely related to stress change. 4. Jointeffusion and popliteal cyst. at 191 Reported and signed by: Oliverio Cornelius M.D. CC: Chuy Schrader MD Technologist:DIANE BURRIS, TAWANDA Transcribed D/ (1910) Juan [facility] NAME: JASON PERDOMO [address] [facility] PHYS: Chuy Rodriguez : 1965 AGE: 56 SEX: F [place] [address] LOC: Y.MRI PHONE #: [phone] EXAM DATE: 04/08/2021 STATUS: REG CLI FAX #: [phone] RAD #: [id number] D/C DT PAGE 1 Signed Report Patient Name: JASON LONG Unit No: [id number] EXAMS: CPT CODE: [id number] MRI LW JNT W/[place] [id number] (Continued) Orig Print D/T: S: 04/08/2021 (1913) [facility] NAME: JASON LONG [address] [facility] PHYS: MARIOLOU Chuy Love : 1965 AGE: 56 SEX: F [place] [address] LOC: Y.MRI PHONE #: [phone] EXAM DATE: 04/08/2021 STATUS: REG CLI FAX #: [phone] RAD #: [id number] D/C DT PAGE 2 Signed Report- MRI LW JNT W/O CONT [id number] 09:13:00Patient Name: JASON LONG Unit No: [id number] Report Has Been Amended EXAMS: CPT CODE: [id number] MRI LW JNT W/[place] [address] Addendum - 06/23/2019 SIGNED 06/23/2019 ADDENDUM: [id number] MRI/[id number] ADDENDUM: There is a typographical error in diagnosis #1. DIAGNOSIS: 1 irregular horizontal tear of the body and posterior horn of the medial meniscus extending through the superior articular surface. In the body of the report there is again an error. The body and posterior hornof the medial meniscus is torn. at 0913 Reported and signed by: Jono Mccormick MD Report MRI OF THE LEFT KNEE DIAGNOSIS: 1. [...] effusion without evidence for a loose body COMMENT:COMPARISON: No prior exams available. Scans were performed in the sagittal, axial and coronal planes utilizing T1, spin density with fat saturation and T2-weighted pulse sequences. Bony and hyaline ca rtilage abnormalities are present as noted. The body and posterior horn is torn. The anterior horn the medial meniscus and the lateral meniscus are within normal limits in signal and configuration. No abnormality of the anterior or posterior cruciate or medial or lateral collateral ligaments. The quadriceps and patellar tendons appear normal. at 0922 Reported and signed by: Jono Mccormick MD [facility] NAME: JASON LONG [address] [facility] PHYS: [email or web address] - Ruddy Escalante : 1965 AGE: 54SEX: F [place], [place] [address] LOC: Y.MRI PHONE #: [phone] EXAM DATE: 06/04/2019 STATUS: DEP CLI FAX #: [phone] RAD #: [id number] D/C DT PAGE 1 Signed Report (CONTINUED) Patient Name: JASON LONG Unit No: [id number] Report Has Been Amended EXAMS: CPT CODE: [id number] MRI LW JNT W/[place] [address] (Continued) CC: Ruddy Escalante MD Technologist: Sunni Gates Transcribed D/ (921) DebbieJCL [facility] NAME: ENRIQUE LONG [address] [facility] PHYS: MATVA. - Ruddy Escalante : 1965 AGE: 54 SEX: F [place] [address] LOC: Y.MRI PHONE #: [phone] EXAM DATE: 06/04/2019 STATUS: DEP CLI FAX #: [phone] RAD #: [id number] D/C DT PAGE 2 Signed Report Patient Name: JASON LONG Unit No: [id number] Report Has Been Amended EXAMS: CPT CODE: [id number] [place] LW JNT W/[place] [address] (Continued) Orig Print D/T: S: 06/06/2019 (924) [facility] NAME: JASON LONG [address] [facility] PHYS: MATVA. - Ruddy Escalante : 1965 AGE: 54 SEX: F [place] [address] LOC: Y.MRI PHONE #: [phone] EXAM DATE: 06/04/2019 STATUS: DEP CLI FAX #: [phone] RAD #: [id number] D/C DT PAGE 3 Signed Report- MRI LW JNT W/O CONT [id number] 09:22:00Patient Name: JASON LONG Unit No: [id number] EXAMS: CPT CODE: [id number] MRI LW JNT W/[place] [address] MRI OF THE LEFT KNEE DIAGNOSIS: 1. [...] MD CC: Ruddy Escalante MD Technologist: Sunni Johnson D/ (921) Bridger [facility] NAME: JASON LONG [address] [facility] PHYS: MATMARKY.Patricia - Ruddy Escalante : 1965 AGE: 54 SEX: F [place] [address] : Y.MRI PHONE #: [phone] EXAM DATE: 06/04/2019 STATUS: DEP CLI FAX #: [phone] RAD #: [id number] D/C DT PAGE 1 Signed Report Patient Name: JASON LONG Unit No: [id number] EXAMS:CPT CODE: [id number] MRI LW JNT W/[place] [address] (Continued) Orig Print D/T: S: 06/06/2019 (924) [facility] NAME: JASON LONG [address] [facility] PHYS: FLORIN.Patricia - Ruddy Escalante : 1965 AGE: 54 SEX: F [place] [address] LOC: Y.MRI PHONE #: [phone] EXAM DATE: 06/04/2019 STATUS: DEP CLI FAX #: [phone] RAD #: [id number] D/C DT PAGE2 Signed Report
[2024-05-24 16:00] VITALS: BMI 33.0
[2024-05-24] MEDS ORDERED: ACETAMINOPHEN 500 MG TAB PO PRN (16:30)
[2024-05-24] MEDS ORDERED: DOCUSATE NA/SENNA CONC 1 TAB PO PRN (18:18)
[2024-05-24] MEDS: HYDROCODONE/APAP 5/325 MG TAB PO PRN (18:30)
[2024-05-24] MEDS: methocarbamoL 500 MG TAB PO PRN (18:30)
[2024-05-24] MEDS: APIXABAN 2.5 MG TABLET PO SCH (20:00)
[2024-05-24] MEDS: DOCOSAHEXANOIC AC/EPA 1000 MG PO SCH (20:55)
[2024-05-24] MEDS: VITAMIN D 1000 UNIT TAB PO SCH (20:55)
[2024-05-24] MEDS ORDERED: ATORVASTATIN 40 MG TAB PO SCH (21:00)
[2024-05-25 00:02] LABS: Specific Gravity 1.008 (1.005-1.030); Sqamous Epithelial <5 /HPF (None Seen); Urine Bacteria <20 /HPF (<20); Urine Bilirubin NEGATIVE (Negative); Urine Blood Negative (Negative); Urine Clarity Extremely Turbid (Clear); Urine Color Light-Yellow (Yellow); Urine Culture Reflex Order REFLEXED; Urine Glucose NEGATIVE (Negative); Urine Ketones NEGATIVE (Negative); Urine Microscopic Reflex YN ORDER UMIC; Urine Mucus Slight /HPF (None Seen); Urine Nitrite 2+ (Negative); Urine Protein NEGATIVE (Negative); Urine RBC None Seen /HPF (None Seen); Urine Urobilinogen Normal (Normal); Urine WBC 20-50 /HPF (<5); Urine pH 6.5 (5.0-7.0)
[2024-05-25 05:17] LABS: Absolute Basophils 0.1 K/uL (0-0.5); Absolute Eosinophils 0.3 K/uL (0-0.5); Absolute Lymphocytes (CBC) 1.8 K/uL (0.7-4.9); Absolute Monocytes 0.7 K/uL (0.1-1.3); Absolute Neutrophil 7.8 K/uL (1.8-8.0); Basophils % 1.2 % (0-1.3); Eosinophils % 2.7 % (0-4.4); Hematocrit 37.9 % (36.0-45.0); Hemoglobin 12.8 g/dL (12.0-15.0); Lymphocytes % 16.8 % (15.3-44.8); MCH 32.3 pg (27.0-35.0); MCHC 33.8 g/dL (32.0-36.0); MCV 95.6 fL (80-100); MPV 6.5 fL (7.6-11.3); Monocytes % 6.8 % (3.3-12.3); Neutrophils % 72.5 % (41.7-73.7); Nucleated Red Blood Cells % 0.1 % (0-0); Platelets 570 thou/uL (152-406); RBC Red Blood Cell Count 3.97 M/uL (3.86-4.86); Red Cell Distribution Width 13.9 % (12.1-15.2)
[2024-05-25 05:36] LABS: Albumin 3.1 g/dL (3.4-5.0); Anion Gap 9.9 mEq/L (5.0-15.0); Magnesium 1.7 mg/dL (1.6-2.4); Potassium 3.9 mEq/L (3.5-5.1); Prealbumin 19.6 mg/dL (20-40)
[2024-05-25] MEDS ORDERED: PANTOPRAZOLE 40MG TABLET PO SCH (07:30)
[2024-05-25] MEDS: ABALOPARATIDE SQ SCH (08:00)
[2024-05-25] MEDS: HYDROCODONE/APAP 5/325 MG TAB PO ONE (09:59)
[2024-05-25] MEDS: VITAMIN B COMPLEX 1 CAP PO SCH (10:00)
[2024-05-25] MEDS: ASCORBIC ACID 500 MG TABLET PO SCH (10:00)
[2024-05-25] MEDS: ATORVASTATIN 40 MG TAB PO SCH (10:00)
[2024-05-25] MEDS: DULOXETINE 30 MG CAP PO SCH ×2 (10:00→19:13)
[2024-05-25] MEDS: LIDOCAINE 4% PATCH TOP SCH (10:01)
[2024-05-25] MEDS: FERROUS SULFATE 325 MG TAB PO SCH (10:01)
[2024-05-25] MEDS ORDERED: LIDOCAINE 4% PATCH ONE (11:54)
[2024-05-25] MEDS: HYDROCODONE/APAP 10/325 TAB PO PRN (13:59)
[2024-05-25] MEDS: TRAZODONE 50 MG TABLET PO PRN (19:12)
--- NOTE | 2024-05-25 21:10 | HP ---
Date of Admission: 05/24/2024 Time Of Service: 1 p.m. Chief Complaint: "I have a lot of pain and I need exercise, I need to get better." History Of Present Illness: Ms. Solorzano is a 59-year-old patient with hypertension, dyslipidemia, ch ronic back pain with diffuse disk degeneration, who is status post anterior cervical diskectomy and f usion of C4-C7 in December of 2023, also scoliosis, lumbar spinal stenosis, osteopenia, who presented w ith worsening pain and numbness in the extremities, mostly in the lower extremities. Pain and numbne ss ongoing in both legs for several years, but over the past few days had presented more significantl y. She could not feel her lower extremities and back and hips and had significant pain. She had no urinary retention or bowel issues. MRI of the lumbar spine found spinal stenosis with radiculopathy and she had an ALIF and XLIF along with L2 to pelvis fusion done on 05/16/2024. In addition, she als o had chronic cervical radiculopathy and has had the anterior diskectomy and fusion previously from C 4-C7. Postoperatively, she did develop urinary retention requiring straight catheterization. She miller d improvement in the bilateral numbness of lower extremities, but still persistent and still has sign ificant weakness and pain. She required multimodality pain regimen including neuromodulators and mul tiple narcotic type medications. She did develop acute encephalopathy, likely related to delirium fr om being in ICU and taking multiple pain medications. Confusion wax and wane, but then eventually im proved. Further, she had constipation and required bowel regimen to address that and was put on Sero quel for agitation. She had acute hypoxic respiratory failure and that improved and saturations now are around 92% to 94%, and she has incentive spirometry encouraged. She also had hypokalemia and hyp ochloremia and those have improved. She does have atenolol for hypertension and atorvastatin for dys lipidemia, vitamin D and calcium for osteopenia. She has ferrous sulfate for iron deficiency anemia, Protonix for GE reflux. She did have some elevated liver enzymes, which have improved, suspected se condary to acute acetaminophen toxicity. She is now medically cleared for inpatient rehab. She was evaluated by Therapy Service and found to require minimum to moderate assistance ambulating about 30 feet with a front wheel walker. She had severe pain requiring multiple modalities as noted. She gramajo s have a back brace that is in place when she mobilizes. She is functioning well below her baseline level of functioning and is now determined an appropriate candidate for aggressive inpatient rehabili tation along with management of her comorbid conditions which will be done. Past Medical History: Anxiety, arthritis, claustrophobia, multiple neck and lower back surgeries, de creased range of motion in the neck. She has dental bridge present, gastroesophageal reflux disease, dyslipidemia, she did have COVID-19 and has had tinnitus. In addition to foot surgery, lumbar fusio n and cervical fusion surgery, joint replacement. In addition, tubal ligation. Allergies: GABAPENTIN, PREGABALIN, AND TRAMADOL. Current Medications: Tylenol 500 mg every 6 hours as needed, Eliquis 2.5 mg twice daily, vitamin C 1 000 mg daily, Lipitor 40 mg daily at night, vitamin D 1000 units daily, duloxetine 60 mg twice daily, ferrous sulfate 325 mg daily, fish oil 1000 mg daily, Tomball 10/325 every 4 hours as needed, lidocain e 2 patches daily as needed, Robaxin 500 mg every 6 hours as needed, Senokot-S 2 at bedtime, vitamin B complex 1 daily. Laboratory Studies: Her complete blood count with differential is completely normal. White blood ce ll count is 10.0. Her platelet count slightly elevated to 570, hemoglobin 12.8. Her sodium normal a t 138, potassium 3.9, chloride 104, carbon dioxide 28, BUN 6, creatinine 0.58, glucose 133, calcium 9 .5, magnesium 1.7, albumin 3.1, prealbumin 19.6, and urinalysis shows extreme turbidity, 2+ nitrites, 250 esterase, 20 to 50 white blood cells. Cultures are pending. Family History: Noncontributory. Social History: No current alcohol, tobacco, or IV drug use. The patient lives in a one-story home with family. Her and daughter are very helpful with her care. Review of Systems: Pain in the lower back, numbness in the feet, some pain in the neck and arms, difficulty with sleep a nd issues of bowel movement as noted. Current Level Of Functioning: Currently, she is clear with her understanding, comprehension, and exp ression. She does need setup assistance for eating, supervision for grooming, moderate assistance fo r bathing, upper and lower body dressing moderate assistance as well, dependent for toileting and for wheelchair transfer for ambulation moderate assistance. She is able to ambulate 30 feet. Physical Examination: Vital Signs: Blood pressure 148/84, pulse 89 to 101, temperature 98, respiratory rate 16 to 20, oxyg en saturation 99%. General: Ms. Solorzano sitting in a chair, eating some chicken nuggets her family brought. HEENT: She appears normocephalic, atraumatic. Sclerae anicteric. Oropharynx pink and moist. Neck: Supple. Chest: Clear. Extremities: Mild edema in lower extremities. She has hyperesthesias to touch in the lower extremit ies. Mild diffuse weakness in the lower extremities 3 to 4/5, upper extremities are 4 to 5, and decr ease in stocking-glove loss, light touch temperature. Depressed upper reflexes and lower reflexes. Rehab And Medical Assessment And Plan: Ms. Solorzano is a 59-year-old patient in the rehabilitation rust with impairment category 06, neurological condition. Impairment group code is 03.9, other neurolo gical condition. Etiologic diagnoses, lumbar stenosis and radiculopathy. Comorbid conditions are diabetes mellitus, chronic pain, cervical radiculopathy, lumbar radiculopathy , anxiety, depression, dependent on multiple narcotic medications, diabetes mellitus type 2, decrease d mobility, decreased physical functioning. Plan: 1.She will have physical, occupational, and if need be speech therapy 3.5 hours, 5 of 7 days. 2.For pain, she has duloxetine now 60 mg twice daily. She has Tomball 10/325 every 4 hours as needed, and the muscle relaxant methocarbamol 500 mg every 4 hours as needed. Respiratory pressure will be carefully watched for. She has constipation. She has Senokot-S that is on board for that. She does have vitamin B complex on board along with vitamin D to address issues of osteopenia. She has Eliqu is 2.5 mg twice daily for DVT prophylaxis and she has ferrous sulfate along with the vitamin regimen for her anemia. She has fish oil as well for that. Lidocaine patch added for pain. Comorbidities That Are Impacting Rehabilitation: Currently, Ms. Solorzano requires significant amount of pain medications. The goal is to cut back the need for narcotics, increasing neuromodulators, and allow her to be able to do well with just minimum amount of narcotic use, work on her bowel habitus. We will work on minimizing the risk of pneumonia with incentive spirometry and managing blood sugar s and blood pressures of course. Rehab Specific Plan: Ms. Solorzano will have physical, occupational, and if need be speech therapy to help her transfer from bed to chair to toilet to shower, to be able to don up on clothes upper and lo wer body, don and doff footwear, to be able to ambulate at least 250 feet with a rolling walker and m obilize a wheelchair 250 feet, up and down 10 steps with bilateral handrails. Ms. Solorzano has good understanding of the process of admission to rehabilitation unit and how she maryam l benefit from physical, occupational, and if need be speech therapy. She will have 24 hours a day, 7 days a week skilled rehabilitation and nursing, daily physician evaluation and management, and [facility] services evaluation and management for discharge planning, home equipment, physician followup, and to continue therapy. If need be, additional help from the Hospitalist Service will be sought. Barriers To Discharge: As noted currently, she is in significant pain. She was followed by a pain m anagement specialist in [place]. She will be returning to the [facility] to have med ications and she be informed about discharge pain medication will be from the hospital, but will be b ack with her [employer]. She may require extended stay depending how she is able to do. At this point, however, the plan is for her to be able to go home and to continue therapy via [facility]. Length Of Stay: About 14 days. Disposition: Back home with family. Prognosis: Good. Code Status: Full code. Rehab Specific Goals: 1.Become independent with upper and lower body dressing, donning and doffing footwear. 2.Independently mobilize household distances. 3.Independently go up and down 10 steps. 4.Independently perform all cognitive functioning. The above goals were reviewed with Ms. Solorzano and she is in agreement. By signing this document, I acknowledge I personally performed a full physical examination on Ms. Jairo hopkins no later than 24 hours after her admission to the inpatient rehabilitation facility and determin ed that she is able to tolerate the above course of treatment at an intensive level for a reasonable period of time. A detailed individualized plan of care for her will be completed by hospital day 4 b nolberto on the preadmission screen, history and physical, and therapy evaluations. FOZIA Voice ID: [id number]
[2024-05-26] MEDS: LIDOCAINE 4% PATCH TOP SCH (09:21)
--- NOTE | 2024-05-26 21:55 | PN ---
Date of Progress Note: 05/26/2024 Time Of Service: 1:10 p.m. Subjective: Ms. Solorzano is sitting side of bed with back brace in place. She is very happy today. She had a great night sleep last night. Her pain is managed perhaps around 2, and no new complaints. Objective, no fevers, chills, nausea, vomiting. No significant myalgias, arthralgias, rash. No ps ychiatric complaints. Physical Examination: Vital Signs: Blood pressure 109/73, respiratory rate 16 to 20, temperature 97.4, pulse up to 100, ox ygen saturation 96%. General: Ms. Solorzano is sitting side of bed with. HEENT: She appears normocephalic, atraumatic. Sclerae anicteric. Oropharynx pink, moist. Neck: Supple. Chest: Clear. She has good hemostasis at the surgical site and the back and the back brace again in place with no issues there. Laboratory Studies: Yesterday, complete blood count with differential essentially unremarkable excep t platelets reactively elevated to 570. Also basic metabolic panel showed normal sodium, potassium, chloride, carbon dioxide, BUN is 6, creatinine 0.58, prealbumin 18.6, albumin 3.1, magnesium 1.7, angelique cium 9.5. Her urine cultures did grow greater than 100,000 colony-forming units. Currently, 4+ gram -negative rods with cultures pending. X-ray/imaging: No new x-rays or imaging. Medications: Tylenol Extra Strength 500 mg every 6 hours as needed, Rector 10/325 every 4 hours as ne eded, Eliquis 2.5 mg twice daily, vitamin C 1000 mg daily, Lipitor 40 mg at bedtime, vitamin D 1000 u nits daily, Cymbalta 60 mg twice daily, ferrous sulfate 325 mg daily, fish oil 1000 mg daily, lidocai ne patch apply 2 patches daily as needed, Robaxin 500 mg every 6 hours as needed, Senokot-S 2 at bedt myles for constipation, trazodone 25 mg at night for insomnia, B complex 1 capsule daily. She does hav e Robaxin 500 mg every 6 hours. Progress Made With Physical, Occupational, And Speech Therapy: With therapy, she did ambulate 300 fe et with a rolling walker with standby assistance. Wheelchair mobilize 250 feet and up and down 15 st eps with bilateral handrails. Regarding her occupational therapy, supervision for all transfers, fun ctional mobility, bedroom, toilet, bathroom space, use a rolling walker. Perform toilet hygiene with setup assistance, oral hygiene is independence while seated in a Rollator from the sink. Complete u pper body dressing lower body dressing with supervision. Regarding speech worked on skills including short-term memory, working memory. Recall is sequencing. She was able to recall 4/4 unrelated times after 5 minutes and 7 minutes delay . She needed minimal assistance for working memory tasks for 4 units of information with average acc uracy. Word sequence 4 steps in ADLs and ADLs with 90% accuracy independently. She did need moderat e assistance to recall and has 60% accuracy. Rehab And Medical Assessment And Plan: Ms. Saniya Solorzano is a 59-year-old patient in rehabilitati on unit with lumbar radiculopathy, status post decompression. She has decreased mobility, decreased physical functioning, insomnia, constipation, muscle spasms, iron deficiency, dyslipidemia, risk of d eep vein thrombus and chronic back pain. Plan to have physical and occupational therapy 3 hours a da y, 5 to 7 days. We will continue with management of her pain with including the Rector. I n addition to the duloxetine, muscle relaxant, methocarbamol. Dyslipidemia addressed with Lipitor an d and for constipation Senokot-S will be used. Her comorbid conditions do not negatively impact her rehabilitation. LB/MODL Voice ID: [id number] Report ID: [id number]
[2024-05-27] MEDS: DIVALPROEX DR 250 MG TAB PO SCH (09:44)
--- NOTE | 2024-05-27 13:20 | P.RH.PN ---
Estimated Length of Stay: 10 Vital Signs: Last Vital Signs Temp 97.6 F 05/27/24 07:40 Pulse 98 H 05/27/24 07:40 Resp 17 05/27/24 07:40 BP 135/71 05/27/24 07:40 Pulse Ox 94 05/27/24 07:40 Laboratory: Laboratory Last Values WBC 10.70 thou/uL (4.3-10.9) 05/25/24 04:40 RBC 3.97 M/uL (3.86-4.86) 05/25/24 04:40 Hgb 12.8 g/dL (12.0-15.0) 05/25/24 04:40 Hct 37.9 % (36.0-45.0) 05/25/24 04:40 MCV 95.6 fL (80-100) 05/25/24 04:40 MCH 32.3 pg (27.0-35.0) 05/25/24 04:40 MCHC 33.8 g/dL (32.0-36.0) 05/25/24 04:40 RDW 13.9 % (12.1-15.2) 05/25/24 04:40 Plt Count 570 thou/uL (152-406) H 05/25/24 04:40 MPV 6.5 fL (7.6-11.3) L 05/25/24 04:40 Neutrophils % 72.5 % (41.7-73.7) 05/25/24 04:40 Lymphocytes % 16.8 % (15.3-44.8) 05/25/24 04:40 Monocytes % 6.8 % (3.3-12.3) 05/25/24 04:40 Eosinophils % 2.7 % (0-4.4) 05/25/24 04:40 Basophils % 1.2 % (0-1.3) 05/25/24 04:40 Absolute Neutrophils 7.8 K/uL (1.8-8.0) 05/25/24 04:40 Absolute Lymphocytes 1.8 K/uL (0.7-4.9) 05/25/24 04:40 Absolute Monocytes 0.7 K/uL (0.1-1.3) 05/25/24 04:40 Absolute Eosinophils 0.3 K/uL (0-0.5) 05/25/24 04:40 Absolute Basophils 0.1 K/uL (0-0.5) 05/25/24 04:40 Sodium 138 mEq/L (136-145) 05/25/24 04:40 Potassium 3.9 mEq/L (3.5-5.1) 05/25/24 04:40 Chloride 104 mEq/L (98-107) 05/25/24 04:40 Carbon Dioxide 28 mEq/L (21-32) 05/25/24 04:40 Anion Gap 9.9 mEq/L (5.0-15.0) 05/25/24 04:40 BUN 6 mg/dL (7-18) L 05/25/24 04:40 Creatinine 0.58 mg/dL (0.55-1.02) 05/25/24 04:40 Est GFR (CKD-EPI) 104 ml/min (=/>90) 05/25/24 04:40 Glucose 133 mg/dL (74-106) H 05/25/24 04:40 Calcium 9.5 mg/dL (8.5-10.1) 05/25/24 04:40 Magnesium 1.7 mg/dL (1.6-2.4) 05/25/24 04:40 Albumin 3.1 g/dL (3.4-5.0) L 05/25/24 04:40 Prealbumin 19.6 mg/dL (20-40) L 05/25/24 04:40 Urine Color Light-yellow (Yellow) 05/24/24 22:30 Urine Clarity Extremely turbid (Clear) H 05/24/24 22:30 Urine pH 6.5 (5.0-7.0) 05/24/24 22:30 Ur Specific [place] 1.008 (1.005-1.030) 05/24/24 22:30 Glucose (UA)(Auto) Negative (Negative) 05/24/24 22: Urine Ketones Negative (Negative) 05/24/24 22: Urine Blood Negative (Negative) 05/24/24 22:30 Urine Nitrite 2+ (Negative) H 05/24/24 22:30 Urine Bilirubin Negative (Negative) 05/24/24 22:30 Urine Urobilinogen Normal (Normal) 05/24/24 22:30 Ur Leukocyte Esterase 250 Brenda/uL (Negative) H 05/24/24 22:30 Urine RBC None seen /HPF (None Seen) 05/24/24 22:30 Urine Red Cell Clumps Cancelled 05/24/24 19:37 Urine WBC 20-50 /HPF (<5) H 05/24/24 22:30 Urine WBC Clumps Cancelled 05/24/24 19:37 Ur Squamous Epith Cells <5 /HPF (None Seen) 05/24/24 22:30 U Non-Squamous Epi Cells <5 /HPF (None Seen) 05/24/24 22:30 Ur Transition Epith Cell Cancelled 05/24/24 19:37 Ur Renal Epithelial Cell Cancelled 05/24/24 19:37 Calcium Carbonate Cryst Cancelled 05/24/24 19:37 Calcium Oxalate Crystal Cancelled 05/24/24 19:37 Leucine Crystals Cancelled 05/24/24 19:37 Cystine Crystals Cancelled 05/24/24 19:37 Uric Acid Crystals Cancelled 05/24/24 19:37 Triple Phos Crystals Cancelled 05/24/24 19:37 Tyrosine Crystals Cancelled 05/24/24 19:37 Unidentified Crystals Cancelled 05/24/24 19:37 Amorphous Crystals Cancelled 05/24/24 19:37 Urine Bacteria <20 /HPF (<20) 05/24/24 22:30 Hyaline Casts Cancelled 05/24/24 19:37 Granular Casts Cancelled 05/24/24 19:37 Waxy Casts Cancelled 05/24/24 19:37 RBC Casts Cancelled 05/24/24 19:37 WBC Casts Cancelled 05/24/24 19:37 Urine Mucus Slight /HPF (None Seen) 05/24/24 22:30 Urine Trichomonas Cancelled 05/24/24 19:37 Ur Yeast w Hyphae Cancelled 05/24/24 19:37 Urine Yeast (Budding) Cancelled 05/24/24 19:37 Urine Sperm Cancelled 05/24/24 19:37 Ur Oval Fat Bodies Cancelled 05/24/24 19:37 Urine Culture Reflexed Reflexed 05/24/24 22:30 Urine Total Protein Negative (Negative) 05/24/24 22:30 Urine Ascorbic Acid Cancelled 05/24/24 19:37 Urine Fat Cancelled 05/24/24 19:37 Weight: 186 lb 11.2 oz Wound Present: No Closed Surgical Incision Present: Yes Negative Pressure Wound Therapy Present: No Physician Update: She is walking independently including steps. She has fluctuating pain not matched by affect. Labs reviewed and are stable. To be discharged home today. Follow-up with pain management. Summary: Patient's care plan and retirement goals have been reviewed and revised as necessary. Please see the Rehabilitation Signature page for all necessary signatures.
[2024-05-31 15:06] VITALS: BP 118/64; TEMP 97.7
== END 2024-05-28 08:30 | disposition home or self-care (01) | DRG 561 ==
LOC: 5TH 15:45
PROVIDERS: ADMIT Psychiatry & Neurology Neurology with Special Qualifications in Child Neurology; ATTEND Psychiatry & Neurology Neurology with Special Qualifications in Child Neurology
DX: Z47.89 Encounter for other orthopedic aftercare (principal); I10 Essential (primary) hypertension; E78.5 Hyperlipidemia, unspecified; F41.9 Anxiety disorder, unspecified; F40.240 Claustrophobia; K21.9 Gastro-esophageal reflux disease without esophagitis; K59.00 Constipation, unspecified; M62.838 Other muscle spasm
CPT/HCPCS: 36415; 80048; 81001; 82040; 83735; 84134; 85025; 87077; 87086; 87088; 87186; 92523; 97110; 97116; 97129; 97163; 97165; 97530; 97542; J2003